=== PATIENT | female | born 1940 | race Caucasian/White ===

== ENCOUNTER → 2024-02-12 13:31 | Outpatient (REF) | payer MEDICARE, SELFPAY | LOC: DHCBS MAIN 13:31 | PROVIDERS: ATTENDING PHYSICIAN Nuclear Medicine Nuclear Cardiology; FAMILY PHYSICIAN Student in an Organized Health Care Education/Training Program | DX: I42.9 Cardiomyopathy, unspecified (principal); R06.02 Shortness of breath; Z95.810 Presence of automatic (implantable) cardiac defibrillator; I48.0 Paroxysmal atrial fibrillation | CPT/HCPCS: 93306 ==

== ENCOUNTER 2024-05-08 03:58 | Inpatient (IN) | payer MEDICARE, SELFPAY ==
[2024-05-08] VITALS (33 sets, daily range): BP systolic 61–132; BP diastolic 37–75; BMI 31.3
--- NOTE | 2024-05-08 00:07 | ED.GENMED ---
History of Present Illness
General
Chief Complaint: Breathing Problem
Source: patient
Exam Limitations: none
Time Seen by Provider: 05/07/24 23:47
History of Present Illness
History of Present Illness:
This is a 83 year old female that comes in by ambulance with c/o SOB. Patient is a nonverbal adult but will shake her head yes or no or give a Thumbs up or down. Told that she [facility]. States that her SOB started
tonight. States that she also has a headache on the right side. Denies any fever, chills, chest pain, abd pain, nausea, vomiting, diarrhea, dizziness, urinary burning
Past History
Past History
ED Past Medical History: Asthma, CHF, COPD, HTN, Hypothyroidism and Other (Aphasia, Bronchitis)
ED Past Surgical History: Cardiac (Pacemaker/ Defib), Cholecystectomy, Gynecological (Tubal, ), Orthopedic (Right hip replacement, Richard knee replacement, ) and Other (cataracts)
Social History
Tobacco: Former smoker
Alcohol: None
Personal:
Living: with family
Review of Systems
Review of Systems
All Other Systems: ROS reviewed and negative except as documented in HPI and ROS
Constitutional: Reports no symptoms; Denies fever or chills
EENT: Reports no symptoms
Respiratory: Reports cough and trouble breathing
Cardiac: Denies chest pain
ABD/GI: Reports no symptoms; Denies abdominal pain, nausea, vomiting or diarrhea
: Reports no symptoms; Denies dysuria, frequency or urgency
Musculoskeletal: Reports no symptoms
Skin: Reports no symptoms
Neurological: Reports headache; Denies dizzy
Psychiatric: Reports no symptoms
Phy Exam
General Physical Exam
General Presentation: no apparent distress
General age: appears stated age
General Skin: warm and dry
General Habitus: elderly
General Mental: alert
General Hydration: appears well hydrated
ENT Exam
ENT Exam: TM's normal, pharynx normal and neck supple
Eye Exam
Eye Exam: EOMI
Cardiovascular Exam
Cardiovascular Exam: normal peripheral pulses and pacemaker
Pulmonary Exam
Pulmonary Exam: no rhonchi, decreased breath sounds and other (Very faint exp wheezing noted, Moist cough noted)
Gastrointestinal Exam
Gastrointestinal Exam: normal bowel sounds, non tender, soft, no pulsatile mass, non distended and other (Hard palpable mid abd hernia)
Musculoskeletal Exam
Musculoskeletal Exam: full ROM and edema (+1 pitting edema lower legs)
Skin Exam
Skin Exam: normal color, warm/dry, no rash and no petechia
Psychiatric Exam
Psychiatric Exam: normal mood/affect
Scores
Heart Failure Risk
Heart Failure Risk Score: Not Applicable
Course
Orders/Labs/Results
Orders:
Orders
05/07/24 23:46
Cardiac Monitoring- Treatment ONCE
IV Insert/Care/Rem.- Treatment PRN
O2 Therapy [RESP] Urgent
Titrate/Wean O2 to maintain O2 sat greater than (%): 93
Special Instructions: TO MAINTAIN CONTINOUS PULSE OX SATS > OR = 93%
Pulse Ox/spot Check [RESP] Urgent
Quantity: 1
Special Instructions: ON ROOM AIR
05/07/24 23:47
EKG [Electrocardiogram (*1)] Urgent
Reason for Study: Shortness of Breath
EKG- Treatment ONCE
Complete Blood Count/No Diff Urgent
Comprehensive Metabolic Panel Urgent
05/08/24 00:06
CR Chest - 2 Views Urgent
Comment:
Reason For Exam: SOB
05/08/24 00:11
Ipratropium/Albuterol Sulfate [Duoneb] 3 ml INH R NOW ONE
05/08/24 00:13
NT-proBNP Urgent
Troponin I Urgent
05/08/24 00:18
0.9% Sodium Chloride 1000 ml [Nss] 1,000 ml IV BOLUS
05/08/24 00:52
Lactate Level [Lactic Acid] Urgent
05/08/24 01:45
Piperacillin/Tazo 3.375 Gram [Zosyn] 3.375 gram in 50 ml IV NOW
Vancomycin 1 Gram/200 ml [Vancocin] 1 gram in 200 ml IV NOW
05/08/24 02:08
COVID-19 Antigen Urgent
Source: Nasal Swab
D-Dimer Urgent
05/08/24 02:14
Procalcitonin Urgent
PCT Algorithmm Indication: Respiratory
05/08/24 02:47
Admit/Transfer Patient As Directed
Co-Sign Provider:
Level of Care: Inpatient admission
Assign to:: IMU- Intermediate Care
Physician / Group: [email or web address]
Diagnosis: Dysnea, hypotension
Reason for Hospitalization: Dysnea, hypotension
Expected length of stay greater than two midnights?: Yes
ELOS- Estimated Length of Stay in days: 3
I certify the patient meets the requirements for IP care: Yes
05/08/24 02:49
Code Status As Directed
Resuscitation Status: Full Code
05/08/24 03:15
Troponin I Urgent
Abnormal Lab Results
05/08/24 05/08/24 05/08/24
00:13 00:52 02:08
RBC 3.84 L 10^6/uL
(4.20-5.40)
MCV 99.5 H fL
(81.0-99.0)
MCH 32.8 H pg
(27.0-31.0)
D-Dimer 0.85 H ug/mlFEU
(0.00-0.50)
BUN 27 H mg/dl
(7-17)
Glucose 149 H mg/dl
(70-99)
Lactic Acid 2.2 H mmol/L
(0.7-2.0)
Troponin I 0.044 H* ng/ml
SARS-CoV-2 Antigen Positive A
(Negative)
05/08/24 00:13
05/08/24 00:13
Anemia, Dehydration. Glucose nonfasting. Lactic acid slightly elevated. Troponin 0.044, Pro-BNP 415, COVID positive
D-dimer elevation of 0.85, Will adjust for age and the fact that patient has COVID.
Vital Signs
Initial and Last Documented VS:
Initial Vital Signs
Temp Pulse Resp Pulse Ox
97.6 F 95 24 93
05/07/24 23:47 05/07/24 23:47 05/07/24 23:47 05/07/24 23:47
Last Documented Vital Signs
Temp Pulse Resp BP Pulse Ox
97.8 F 72 17 100/55 95
05/08/24 02:54 05/08/24 02:54 05/08/24 02:54 05/08/24 02:54 05/08/24 02:54
MDM/Problems Addressed
Differential Diagnosis Includes:
CHF, PNA, Asthma
MDM/Problems Addressed:
This is a 83 year old female that comes in with c/o SOB. Told that this started tonight. Patient did come home form [place] today.
Will get labs chest X-ray
Back into see patient. Explained that to patient and daughter that she would be admitted. Patient his Hypotensive, lactic acid is elevated and there may be a Pneumonia on the chest X-ray. Unable to get CT scan as patient is allergic to IV dye. Will
get D-dimer and admit. Will admit.
Chronic conditions affecting care: Asthma and Other (CHF)
Acute Exacerbation and/or Progression of Chronic Illness: Asthma and Other (CHF)
*Pulse Oximetry
Patient hypoxic: no
*EKG
Interpreted by ED Provider?: Yes
Heart Rate: 91
Rate: normal
Rhythm: av sequential
*Meatcutter Interpretation
Rate: normal
Heart Rate: 91
Rhythm: ventricular paced
*Critical Care Note
Total Time (30-74mins, 75-104mins- exclusive of procedures): Not Applicable
ED Attending Note
-
Portions of this chart may have been created with voice recognition software.� Occasional wrong word or��sound alike� substitutions may have occurred due to the inherent limitations of voice recognition software.
Discharge Plan
Departure
Patient Disposition: Admit
Date of Disposition: 05/08/24
Time of Disposition: 02:04
Admit to: Telemetry
Presentation/result/management discussed w/ accepting MD/DO: Hospitalist
Patient with high blood pressure during this ER visit?: No
Condition: Good
Covid-19: Confirmed COVID-19
Discharge Problem:
Acute hypotension, SOB (shortness of breath), Elevated troponin, Possible Pneumonia, COVID
Prescriptions:
No Action
furosemide 40 MG tablet
20 mg PO DAILY
cetirizine 10 MG tablet
10 mg PO DAILY
potassium chloride [Klor-Con M20] 20 MEQ tablet,ER particles/crystals
20 meq PO DAILY
colesevelam [WelChol] 625 MG tablet
1,250 mg PO AC
levothyroxine 50 MCG tablet
50 mcg PO DAILY AT 0700
acetaminophen [Tylenol Extra Strength] 500 MG tablet
500 mg PO Q6HPRN PRN (Reason: mild pain)
fluticasone propionate 1 SPRAY spray,suspension
1 spray intranasal DAILY
prednisone 10 MG tablet
10 mg PO DAILY Qty: 50 0RF
carvedilol 6.25 mg tablet
6.25 mg PO BID
omeprazole 40 mg capsule,delayed release(DR/EC)
40 mg PO DAILY
cholecalciferol (vitamin D3) [Vitamin D3] 25 mcg (1,000 unit) capsule
75 mcg PO HS
escitalopram oxalate 10 mg tablet
20 mg PO QPM
apixaban 5 mg Tablet
5 mg PO BID
Entresto 24-26 mg tablet
1 tab PO BID
colesevelam 625 mg Tablet
1,875 mg PO BID
Referrals:
Eileen Mittal DO [Family Provider] -
Interventions
Interventions:
*Risk Screen - Suicide Last Done: 05/07/24 23:47
*General Assessment Last Done: 05/07/24 23:47
*Neglect/Abuse Screening Last Done: 05/07/24 23:47
*ED COVID-19 Vaccine History Last Done: 05/07/24 23:47
ED- Cardiac Assessment Last Done: 05/08/24 00:54
ED- Pulmonary Assessment Last Done: 05/08/24 00:54
Discharge Date and Time
Print Language: HUNGARIAN
[2024-05-08] MEDS: NSS 1000 IV ×3 (00:18→18:30)
[2024-05-08] MEDS: DUONEB 3 ML INH (00:19)
[2024-05-08 00:31] LABS: Hematocrit 38.2 % (37.0-47.0); Hemoglobin 12.6 g/dL (12.0-16.0); Mean Corpuscular Hgb 32.8 pg (27.0-31.0); Mean Corpuscular Volume 99.5 fL (81.0-99.0); Mean Platelet Volume 9.7 fL (7.4-10.4); Platelet Count 246 10^3/uL (130-400); Red Blood Cell Count 3.84 10^6/uL (4.20-5.40); Red Cell Dist. Width 13.3 % (11.5-14.5); White Blood Cell Count 6.8 10^3/uL (4.8-10.8)
[2024-05-08 00:47] LABS: ALT (SGPT) 13 U/L (0-35); AST (SGOT) 21 U/L (14-36); Albumin 4.2 g/dl (3.5-5.0); Alkaline Phosphatase 61 U/L (38-126); Blood Urea Nitrogen 27 mg/dl (7-17); Calcium 9.6 mg/dl (8.4-10.2); Carbon Dioxide 25 mmol/L (22-30); Chloride 107 mmol/L (98-107); Estimated Creatinine Clearance 55 ml/min; Glucose 149 mg/dl (70-99); Potassium 4.3 mmol/L (3.5-5.1); Sodium 141 mmol/L (135-145); Total Bilirubin 0.5 mg/dl (0.2-1.3); Total Protein 6.9 g/dl (6.3-8.2); eGFR > 60.00
[2024-05-08 01:06] LABS: NT-proBNP 415 pg/ml; Troponin I 0.044 ng/ml
[2024-05-08 01:21] LABS: Lactic Acid 2.2 mmol/L (0.7-2.0)
[2024-05-08] MEDS: ZOSYN 50 IV (02:09)
[2024-05-08 02:28] LABS: COVID-19 Antigen Positive (Negative)
--- NOTE | 2024-05-08 02:40 | HPS.HSE ---
Family Physician
-
Family Physician: Jane Mittal, DO
Chief Complaint
-
SoB
History of Present Illness
I could not get detailed information from the patient as she is aphasic - just yes or no answer
Information gathered by chart review and speaking with the ER staff.
83F Aphasic s/p CVA , on Eliquis BiB EMS HX COPD, HX Chr HFrEF , Chr Eliquis dilated cardiomyopathy s/p [employer] biventricular ICD implanted, nonobstructive CAD on cath in 2007 seen at ER for evalaution of SoB:
Acute onset of SoB following driving back fron [place]
- denied cough
- denied sputum
- denied chills
At ER
Severely hypotensive - improved BP s/p 1 L NS
ROS
Denies any fever, chills, chest pain, abd pain, nausea, vomiting, diarrhea, dizziness, urinary burning
Medical History
Past Medical History
Past Medical History: Reports Other
Additional Past Medical History:
Chronic systolic CHF
Hypothyroid
COPD
Dilated Cardiomyopathy
HX [employer] BIV ICD implanted 2007 with last gen change 3012
HX WCT likely NSVT vs possible AT with intrinsic conduction above max track rate
Past Surgical History: Reports Other
Additional Past Surgical History:
Cardiac (Pacemaker/ Defib), Cholecystectomy, Gynecological (Tubal, ), Orthopedic (Right hip replacement, Richard knee replacement, ) and Other (cataracts)
Social History
Tobacco: Former Smoker
Alcohol: None
Personal:
Living: With Family
Family History
Family History: Not pertinent
Allergies / Home Medications
Allergies reflects when Allergies were last updated in [employer].
Home Medications with original date entered in [employer]
Allergy/Medication List:
Allergies
Allergy/AdvReac Type Severity Reaction Status Date / Time
aspirin Allergy Anaphylaxis Verified 05/08/24 00:10
ketorolac tromethamine Allergy Unknown Verified 05/08/24 00:10
[From Toradol]
Bgvouam-TVV-YpB Reductase AdvReac Unknown Verified 05/08/24 00:10
Inhibitor
[Rgzdoqr-Sig-Pgh Reductase
Inhibitor]
iv dye Allergy Anaphylaxis Uncoded 05/08/24 00:10
Home Medications
acetaminophen 500 mg tablet (Tylenol Extra Strength) 500 mg PO Q6HPRN PRN mild pain 10/09/14
cetirizine 10 mg tablet 10 mg PO DAILY 10/09/14
colesevelam 625 mg tablet (WelChol) 1,250 mg PO AC 10/09/14
fluticasone propionate 50 mcg/actuation nasal spray,suspension 1 spray intranasal DAILY 10/09/14
furosemide 40 mg tablet 20 mg PO DAILY 10/09/14
levothyroxine 50 mcg tablet 50 mcg PO DAILY AT 0700 10/09/14
potassium chloride 20 mEq tablet,extended release(part/cryst) (Klor-Con M) 20 meq PO DAILY 10/09/14
prednisone 10 mg tablet 10 mg PO DAILY SINUSITIS ##50 10/09/14
apixaban 5 mg tablet 5 mg PO BID 08/21/23
carvedilol 6.25 mg tablet 6.25 mg PO BID 08/21/23
cholecalciferol (vitamin D3) 25 mcg (1,000 unit) capsule (Vitamin D3) 75 mcg PO HS 08/21/23
escitalopram oxalate 10 mg tablet 20 mg PO QPM 08/21/23
omeprazole 40 mg capsule,delayed release 40 mg PO DAILY 08/21/23
sacubitril 24 mg-valsartan 26 mg tablet (Entresto) 1 tab PO BID 08/21/23
colesevelam 625 mg tablet 1,875 mg PO BID 05/08/24
Review of Systems
-
Constitutional: Reports No Symptoms
EENT: Reports No Symptoms
Respiratory: Reports See HPI
Cardiac: Reports No Symptoms
Abdomen/GI: Reports No Symptoms
: Reports No Symptoms
Musculoskeletal: Reports No Symptoms
Skin: Reports No Symptoms
Neurological: Reports No Symptoms
Endocrine: Reports No Symptoms
Hematologic/Lymphatic: Reports No Symptoms
Psych: Reports No Symptoms
Physical Exam
Vital Signs
Vital Signs
Temp Pulse Resp BP Pulse Ox
97.6 F 76 19 88/57 94
05/07/24 23:47 05/08/24 01:15 05/08/24 01:15 05/08/24 01:15 05/08/24 01:15
Physical Exam
General: Well Developed, Well Nourished, No Apparent Distress, Comfortable and Conversant (aphasix )
HEENT: NormoCephalic and Anicteric
Respiratory: No Rales or Rhonchi
Cardiac: S1/S2 and Regular Rhythm
Breast: Deferred by me
GI: Soft, Non Tender and Non Distended
Skin: Warm
Neuro: Awake and Alert
Psych: Calm
Laboratory Results
-
05/08/24 00:13
05/08/24 00:13
Laboratory Results
Lactic Acid 2.2 mmol/L (0.7-2.0) H 05/08/24 00:52
Total Bilirubin 0.5 mg/dl (0.2-1.3) 05/08/24 00:13
AST 21 U/L (14-36) 05/08/24 00:13
ALT 13 U/L (0-35) 05/08/24 00:13
Alkaline Phosphatase 61 U/L (38-126) 05/08/24 00:13
Troponin I 0.044 ng/ml H* 05/08/24 00:13
Data Reviewed
-
Diagnostic Radiology: Report Reviewed by me
Lab Data: Labs Reviewed by me
Old Records: Reviewed
Impression/Plan
-
Reviewed VS: afebrile HR 80s BP low as 60/37 RR 19 POx low 90s
Data
nl WCC
Unremarkable Cr and eGFR
LA 2.2
pro BNP 415
POS Covid
Pending PCT
CXR : await final report, I could no see obvious PNA
EKG report
Atrial-sensed ventricular-paced rhythm
Biventricular pacemaker detected
ABNORMAL ECG
WHEN COMPARED WITH ECG OF 21-AUG-2023 21:20,
ELECTRONIC VENTRICULAR PACEMAKER HAS REPLACED WIDE QRS TACHYCARDIA
02/12/24 TTE
LVEF 5o-55
stage I diastolic dysfunction
ICD/pacemaker wire present in the right atrial cavity.
Trace mitral regurgitation.
Moderate . Peak/mean gradients across the aortic valve are 23/12 mmHg respectively. Using an LVOT diameter of 2.0 cm the aortic valve
Last hospitalist admission:
ASSESSMENT & PLAN
Acute viral Covid infection
- f/u final report on CXR
- Empiric Steroids
- ID consult for antiviral indication
Acute dyspnea due to acute virla covid ? PNA
- unlikely acute HF with unremarkable proBNP, PE but she is on Eliquis, COPD flare
- cont Eliquis
- check PCT
- Pul consult
Sever hypotension
LA2,2
DDX: Dehydration, sepsis
- IVF
- f/u BP repose
- Held Carvedilol, Entresto and Frusemide
- daily Wt
Currently hypotensive
Essential HTN
- Held Carvedilol, Entresto and Frusemide
HX Chr systolic HF - recent LVEF 50 -55
HX Dilated CM, CAD
- await DCA card eval
HX [employer] BIV ICD implanted 2007 with last gen change 3013
Hypothyroidism
- cont LT4
Aphasia
DVT Px: Eliquis
Code: Full
IMU
[2024-05-08] MEDS: VANCOCIN 200 IV (02:52)
[2024-05-08 02:55] LABS: Procalcitonin < 0.05 ng/ml (0.0-0.25)
[2024-05-08 03:26] LABS: D-Dimer 0.85 ug/mlFEU (0.00-0.50)
[2024-05-08 05:05] LABS: Troponin I 0.112 ng/ml
[2024-05-08] MEDS: MAXIPIME 1000 MG IV (05:21)
[2024-05-08] MEDS: STERILE WATER FOR INJECTION 10 ML IV (05:21)
[2024-05-08] MEDS: SYNTHROID 50 MCG PO (05:21)
--- NOTE | 2024-05-08 05:52 | PTCARENOTE ---
Received pt from ED RN. Pt is nonverbal, answers yes or no questions, aphasic. Vpaced on the monitor. On RA O2 sat 96%, lungs coarse. NS infusing @ 80 ml/hr. CHG bath provided. Bed alarm in place. Pt is laying comfortable in bed with call campa in
reach.
[2024-05-08 06:09] LABS: Lactic Acid 1.4 mmol/L (0.7-2.0)
[2024-05-08] MEDS: PROTONIX 40 MG PO (08:32)
[2024-05-08] MEDS: ELIQUIS 5 MG PO (08:32)
[2024-05-08] MEDS: VIBRAMYCIN 100 MG PO (08:32)
--- NOTE | 2024-05-08 09:33 | PTCARENOTE ---
Assumed care of pt from night RN, pt AAOx3, mostly nonverbal (which is baseline - hx CVA), communicates with thumbs up and down. Remains on RA, SPO2 97%, audible insp/exp wheezing noted. Daughter at bedside, assisting pt with feeding. IVF infusing
as ordered. Will continue to monitor.
--- NOTE | 2024-05-08 09:37 | CON.ID ---
Addendum entered and electronically signed by Idalia Avalos MD 05/08/24 10:18:
probiotic at daughter request
Addendum entered and electronically signed by Idalia Avalos MD 05/08/24 10:13:
Message from Dr Mittal - patient was on chronic steroids when she established care and indication also not clear at that time.
Original Note:
Consultation
-
Date/Time Consultation Requested: 05/08/24 4:46
Date/Time Consultation Performed: 05/08/24 9:38
Requesting Provider: Dr So
Performing Provider: Dr Avalos
Reason for Consultation: acute viral covid
Chief Complaint / Past History
Chief Complaint
shortness of breath
History of Present Illness
Ms Pacheco is an 83 year old female with history of aphasia post CVA, COPD, CHF. History obtained from chart review and discussio nwith adult daughter, she cannot speak but is expressive and will shake head yes or no and give thumbs up or down. By
report with acute dyspnea driving from [place] but non cough, sputum production or chills. Also right sided headache and poor appetite. No sinus tenderness, sore throat. Cough is unchanged. No diarrhea. On arrival patient denied: fever,
chills, chest pain, abd pain, nausea, vomiting, diarrhea, dizziness, urinary burning. She is previously vaccinated for covid.
Since arrival here she has been afebrile, BP with intermittent mild hypotension, saturating well on room air. wbc 6.8, hgb 12, plt 246, d dimer 0.85, cr 0.8, lactic acid 2.2 then 1.4, troponins at 0.112, procalcitonin <0.05, covid ag positive, CXR:
appearance is suggestive of linear atelectasis, although pneumonia with linear morphology, MRSA swab negative. She is currently on cefepime and doxycycline. No antivirals at this time.
Past History
Additional Past Medical History:
Chronic systolic CHF
Hypothyroid
COPD
Dilated Cardiomyopathy
Additional Past Surgical History:
Cardiac (Pacemaker/ Defib), Cholecystectomy, Gynecological (Tubal, ), Orthopedic (Right hip replacement, Richard knee replacement, ) and Other (cataracts)
Allergy History:
aspirin Allergy (Verified 05/08/24 00:10)
Anaphylaxis
ketorolac tromethamine [From Toradol] Allergy (Verified 05/08/24 00:10)
Unknown
[employer]-PEM-UfF Reductase Inhibitor [Gdbahaf-Vjl-Whe Reductase Inhibitor] Adverse Reaction (Verified 05/08/24 00:10)
Unknown
iv dye Allergy (Uncoded 05/08/24 00:10)
Anaphylaxis
Medications Reviewed: Yes
Social History
Tobacco: Former Smoker
Alcohol: None
Personal:
Family History
Family History: Not Pertinent
Review of Systems
Review of Systems
General: Negative Fever or Chills
All systems: All other systems were reviewed and were negative
Vital Signs
Temp Pulse Resp BP Pulse Ox
97.8 F 74 16 94/52 97
05/08/24 07:15 05/08/24 06:04 05/08/24 06:04 05/08/24 06:04 05/08/24 07:45
Physical Exam
Physical Exam
Constitutional: No Acute Distress, Chronically Ill and Obese
Cardiovascular: Regular Rate and S1/S2; Negative Murmur or Rub
Pulmonary: Clear and Symmetric; Negative Wheezes, Rales or Rhonchi
Gastrointestinal: Soft, Non Tender, Non Distended and Normal Bowel Sounds
Skin: Warm and Dry; Negative Rash or Jaundice
Lab / Diagnostic Study Results
05/08/24 00:13
05/08/24 00:13
Lactic Acid Cancelled 05/08/24 16:46
Procalcitonin < 0.05 ng/ml (0.0-0.25) 05/08/24 02:14
Assessment / Plan
Mild Covid 19 Infection
COPD
CHF
- patient vaccinated but does have risk factors for decompensation: age, COPD, CHF, mild hypotension
- elevated d-dimer may be due to covid itself
- no convincing evidence of pneumonia on CXR and procalcitonin is negative - stopped antibiotics
- can plan a 5 day course of paxlovid given risk factors
- dose adjust apixaban to 2.5 mg po bid while on paxlovid, after completion can resume the 5 mg BID dose
- prednisone on the MAR at 10 mg po qday - Im not clear on the outpatient indication for this medication - spoke with pharmacy, last filled 02/23/24 quantity 90 for 90 day supply, tiger texted ordering provider Dr Mittal to clarify indication -
perhaps copd? daughter indicates nasal polyps?
- if hypotension not resolving, primary team might consider adrenal insufficiency
- follow clinically
--- NOTE | 2024-05-08 09:53 | CON.PUL ---
Consultation
Consultation Request
Date/Time Consultation Requested: 05/08/2024445
Date/Time Consultation Performed: 05/08/2024951
Requesting Provider: Dr. So
Performing Provider: Dr. Gastelum
Reason for Consultation: COVID-19/Hypoxia
Medical History
-
Chief Complaint: Shortness of breath
History of Present Illness:
83-year-old female with a past medical history of DVT on Eliquis, asthma, hypertension, aphasia, ambulatory dysfunction and CHF who presents with shortness of breath and EMS placed patient onto oxygen and she required up to 10 L/min with sats of
95%. Here in the ER in triage her saturations was 93% on room air. Patient does not wear home oxygen. Pulse rate 95, respiratory rate 24, temperature 97.6 �F and BP initially 61/37. Initial labs showed normal WBC at 6.8, elevated D-dimer of
0.85, lactate 2.2, elevated troponin of 0.044, procalcitonin negative and COVID antigen is positive. CXR showed linear parenchymal opacities in the lower lobes likely due to atelectasis versus pneumonia. She was given DuoNebs, vancomycin/Zosyn +
IV fluids with NS 0.9% x 1 liter. She was admitted to the hospitalist service, started on Paxlovid and now pulmonary consulted for additional management/recommendations.
When I saw the patient she was sitting in bed in no acute distress with daughter at bedside. Patient currently on IVF at 80mL/hr of NS 0.9%. Patient is answering questions appropriately by gesticulating and nodding head yes or no. Considering
patient is aphasic, HPI was obtained solely by daughter. According to the daughter, this episode is nearly not as bad as other episodes she has had. She was told that her sudden shortness of breath episodes is due to her primary progressive
aphasia. The patient has difficulty writing and is unable to speak, but she still has her cognitive abilities and takes care of herself in other ways (pays bills, makes other decisions for herself). The patient has had these paroxysmal shortness
of breath episodes off and on and it has been continuing to worsen. Patient also has been having difficulty eating as well. Unclear if the patient would ever want a PEG tube if it came to that. I asked the daughter that if the patient ended up
getting worse with her breathing and needed to be on a ventilator which she be okay with that, and she said no. Currently the patient is on room air saturating 97%, heart rate 75, and BP 97/52.
PMHx: History of DVT on Eliquis, history of asthma, hypertension, CHF, arthritis, frontotemporal dementia/primary progressive aphasia, ambulatory dysfunction, situational anxiety, bilateral shoulder arthropathy
PSHx: Knee surgery bilaterally, cholecystectomy, right hip replacement, pacemaker implantation, cataract surgery
Past Medical History
Past Medical History: Other (Above as per HPI)
Past Surgical History: Other (Above as per HPI)
Social History
Tobacco: Non-smoker
Alcohol: Occasional
Drug: None
Living: With Family
Family History
Family History: Cancer (Father: Prostate cancer; sister: Breast cancer + brain cancer) and Hypertension (Mother)
Allergies / Home Medications
Allergies
Allergy/AdvReac Type Severity Reaction Status Date / Time
aspirin Allergy Anaphylaxis Verified 05/08/24 00:10
ketorolac tromethamine Allergy Unknown Verified 05/08/24 00:10
[From Toradol]
Msnsrpm-XAE-KkK Reductase AdvReac Unknown Verified 05/08/24 00:10
Inhibitor
[Ayokxys-Dsm-Dnp Reductase
Inhibitor]
iv dye Allergy Anaphylaxis Uncoded 05/08/24 00:10
Home Medications
�Medication �Instructions �Recorded �Confirmed �Last Taken �Type
acetaminophen 500 mg tablet 500 mg PO Q6HPRN PRN mild pain 10/09/14 05/08/24 Unknown History
(Tylenol Extra Strength)
cetirizine 10 mg tablet 10 mg PO DAILY 10/09/14 05/08/24 Unknown History
colesevelam 625 mg tablet (WelChol) 1,250 mg PO AC 10/09/14 05/08/24 Unknown History
fluticasone propionate 50 1 spray intranasal DAILY 10/09/14 05/08/24 Unknown History
mcg/actuation nasal
spray,suspension
furosemide 40 mg tablet 20 mg PO DAILY 10/09/14 05/08/24 Unknown History
levothyroxine 50 mcg tablet 50 mcg PO DAILY AT 0700 10/09/14 05/08/24 Unknown History
potassium chloride 20 mEq 20 meq PO DAILY 10/09/14 05/08/24 Unknown History
tablet,extended
release(part/cryst) (Klor-Con M)
prednisone 10 mg tablet 10 mg PO DAILY SINUSITIS ##50 10/09/14 05/08/24 Unknown Rx
apixaban 5 mg tablet 5 mg PO BID 08/21/23 05/08/24 Unknown History
carvedilol 6.25 mg tablet 6.25 mg PO BID 08/21/23 05/08/24 Unknown History
cholecalciferol (vitamin D3) 25 75 mcg PO HS 08/21/23 05/08/24 Unknown History
mcg (1,000 unit) capsule (Vitamin
D3)
escitalopram oxalate 10 mg tablet 20 mg PO QPM 08/21/23 05/08/24 Unknown History
omeprazole 40 mg capsule,delayed 40 mg PO DAILY 08/21/23 05/08/24 Unknown History
release
sacubitril 24 mg-valsartan 26 mg 1 tab PO BID 08/21/23 05/08/24 Unknown History
tablet (Entresto)
colesevelam 625 mg tablet 1,875 mg PO BID 05/08/24 05/08/24 Unknown History
Review of Systems
-
Unable to Obtain full review of systems at this time due to: Patient Non Verbal
Vitals / Labs / Diagnostic Testing
Vital Signs
Temp Pulse Resp BP Pulse Ox
98.8 F 79 23 123/75 93
05/08/24 11:10 05/08/24 11:25 05/08/24 11:25 05/08/24 10:00 05/08/24 11:25
Lab Data
05/08/24 00:13
05/08/24 00:13
Diagnostic Testing:
Physical Exam
-
HEENT: Normocephalic and Anicteric
Cardiovascular: S1/S2 and Peripheral Edema (Negative)
Respiratory: Wheeze (Negative), Rales (Bibasilar-middle lung gannon bilaterally), Rhonchi (Negative) and Non-Labored Respirations
GI: Soft, Non Distended, Non Tender and Normal Bowel Sounds
Neurology: Awake and Alert
Skin: Warm and Dry
General: Respiratory Distress (Negative), Comfortable, Chills (Negative) and Sweats (Negative)
Assessment
-
Assessment: 83-year-old female with a past medical history of DVT on Eliquis, asthma, hypertension, aphasia, ambulatory dysfunction and CHF who presents with shortness of breath and EMS placed patient onto oxygen and she required up to 10 L/min
with sats of 95%. Here in the ER in triage her saturations was 93% on room air. Patient does not wear home oxygen. Pulse rate 95, respiratory rate 24, temperature 97.6 �F and BP initially 61/37. Initial labs showed normal WBC at 6.8, elevated
D-dimer of 0.85, lactate 2.2, elevated troponin of 0.044, procalcitonin negative and COVID antigen is positive. CXR showed linear parenchymal opacities in the lower lobes likely due to atelectasis versus pneumonia. She was given DuoNebs,
vancomycin/Zosyn + IV fluids with NS 0.9% x 1 liter. She was admitted to the hospitalist service, started on Paxlovid and now pulmonary consulted for additional management/recommendations.
Chronic conditions [employer]: History of DVT on Eliquis, history of asthma, hypertension, CHF, arthritis, aphasia, ambulatory dysfunction, situational anxiety, bilateral shoulder arthropathy
Impression:
#Acute COVID-19 pneumonia
#Acute respiratory failure with hypoxia � improved and patient no longer needing O2 -her hypoxia episode could also very well be related to her history of primary progressive aphasia
#Lactic acidosis � was likely due to hypotension with sepsis the lactate has now normalized
#Elevated troponin -likely due to type II MN with demand ischemia - peaked at 0.112 on 05/08/2024
#History of COPD/asthma
#Chronic HFpEF
#Frontotemporal dementia/primary progressive aphasia
Plan:
- Continue Paxlovid
- Continue spiriva with prn nebulized bronchodilators
- O2 requirements improved - no need for systemic steroids or remdesivir at this time (also no obvious lung opacities seen on CXR)
- Maintain SpO2 >88-94% with supplemental O2 as needed
- Check home O2 assessment prior to discharge
- Re-check CXR tomorrow to assess if linear opacities still present
- Incentive spirometer encouraged
- Obtain any prior medical records of spirometry/PFTs/pulmonary consult documentation, CT chest imaging studies
- Given patient is not in the ICU, it is reasonable to give multivitamin, thiamine, Zinc + vitamin C
- Check/trend CRP
- No need to continue trending cardiac troponin as it has already peaked earlier today; cardiology consulted and recs appreciated
- Replete electrolytes with K>4, Mg>2
- Maintain euglycemia with goal BG >100 and <180
- DVT ppx
Pulmonary service will continue to follow along. Considering her diagnosis of primary progressive aphasia and the fact that her tachypneic episodes have been increasing lately and she has been having difficulty eating, would strongly recommend
goals of care discussion at least to address code status. Patient currently full code but the daughter said that the patient would not want to be on a ventilator. This will need to be addressed and changed accordingly. I recommend the patient
obtain a living will and also see palliative care as an outpatient with Dr. Sands. The number to call to make an appointment is: [phone]. I otherwise answered all of the patient and the patient's daughter's questions.
Total time spent today was 55 minutes for this encounter. Time includes reviewing laboratory test/imaging results, reviewing pertinent medical records, obtaining and reviewing medical history, performing an appropriate exam, ordering medications,
tests and procedures. Time also includes documentation of this encounter, coordinating patient care and communicating with other healthcare professionals. Total time does not include separately billed tests performed on this date of service.
Data:
CXR 05-08-2024:
Predominantly linear parenchymal opacity projecting over the posterior lower lungs, probably within the right lower lobe. Morphologic appearance is suggestive of linear atelectasis, although pneumonia with linear morphology is also possible.
TTE 02-12-2024:
Endocardial imaging is less than ideal. Left ventricle is mildly dilated.
Normal left ventricular systolic function. No regional wall motion
abnormalities are seen. LV ejection fraction is visually estimated at between
50 and 55% stage I diastolic dysfunction suggestive of abnormal relaxation.
ICD wire seen in right ventricle.
ICD/pacemaker wire present in the right atrial cavity.
Trace mitral regurgitation.
Moderate aortic stenosis. Peak/mean gradients across the aortic valve are
23/12 mmHg respectively. Using an LVOT diameter of 2.0 cm the aortic valve by
the Continuity equation is calculated at 1.0 cm2. Dimension;ess index of 0.3.
Mild tricuspid regurgitation.
Compared to report of an echocardiogram dated November 20, 2022 from [facility] in [facility], LVEF was noted to be
mildly depressed at that time with an ejection fraction approximated at 43% and
no mention of focal wall motion abnormality. Mitral regurgitation was
previously noted to be moderate. No aortic stenosis was described.
--- NOTE | 2024-05-08 10:23 | W.PN.UPDATE ---
Update Note
Progress Note Update
Admitted this morning for shortness of breath and discovered to have COVID.
[facility]
Patient presentation symptoms shortness of breath with COVID. She has no fever or white count and a chest x-ray shows raises a concern about right lower lobe opacity may be more linear atelectasis. Not acting like typical pneumonia. Procalcitonin
normal. She is got bilateral mild wheeze ongoing and there is reactive airways which could explain shortness of breath . Continue with inhaler therapy. If persistent wheezing or symptoms will start on steroids.
She has elevated D-dimer and recent drive up north from [place] but she is on therapeutic AC with Eliquis so doubt PE.
Abnormal troponin noted to recheck in indeterminate range suspect nonischemic myocardial injury? COVID. 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 Echocardiogram 3 months ago showed EF of 50 to 55% and moderate aortic
stenosis. I suspect this may be COVID-related but will obtain a consultation from cardiology.
--- NOTE | 2024-05-08 11:13 | CON.CAR ---
Addendum entered and electronically signed by Anne Musa MD 05/08/24 12:16:
I saw and examined the patient.
The Ball[employer] Pen Assembly Machine Operator's note was reviewed and I agree with the note.
Comment: General: Well developed, well nourished in NAD.
Heart: Distant heart sounds
Lungs: Coarse breath sounds with wheezing bilateral
Extremities: No clubbing, cyanosis or edema bilaterally.
Neuro: Expressive aphasia but able to communicate with thumbs up and thumbs down
She presents in the setting of COVID, pneumonia and likely dehydration. She has ICD in place, PAF, heart failure with improved ejection fraction, moderate aortic valve stenosis and history of CVA with aphasia.
Low-level troponin noted likely nonischemic myocardial injury. No symptoms of angina. Trend troponins but conservatively manage.
Agree with gentle hydration
Agree with treatment of COVID/pneumonia and wheezing
Cardiac medications on hold until blood pressure stable (low/low normal but relatively asymptomatic). Eventually resume.
Telemetry stable. Last ICD check was stable. Currently sinus rhythm. Eliquis dose reduced in the setting of Paxlovid
Original Note:
Consultation
Consultation Request
Date/Time Consultation Performed: 05/08/24
Requesting Provider: Dr. Clarke
Performing Provider: Elsi Rodriguez PA-C for Dr. Anne Musa
Reason for Consultation: elevated troponin
Medical History
-
Chief Complaint: SOB
History of Present Illness:
Patient is an 83 yo F who is aphasic as result of presumed prior CVA, cardiomyopathy with recovered EF s/p [employer] ICD with [employer] [place] leads, chronic HFpEF, paroxysmal atrial fibrillation on chronic eliquis, mod , HTN, HLD, hypothyroidism,
COPD, history of DVT who drove home from [place] yesterday. She developed SOB last evening and [facility] Tested positive for covid, noted to be hypotensive. Cardiology consulted due to elevated troponin of 0.1 and known cardiac
history. Asensed vpaced by EKG on arrival.
PMH:
aphasic as result of prior CVA
cardiomyopathy with recovered EF
s/p [employer] [place] ICD with [employer] leads
chronic HFpEF
paroxysmal atrial fibrillation on chronic eliquis
mod
HTN
HLD
hypothyroidism
COPD
history of DVT
Past Medical History
Past Medical History: Other (in HPI)
Social History
Tobacco: Non-Smoker
Alcohol: Occasional
Personal:
Living: Alone
Family History
Family History: Cancer and Hypertension
Allergies / Home Medications
Allergy/AdvReac Type Severity Reaction Status Date / Time
aspirin Allergy Anaphylaxis Verified 05/08/24 00:10
ketorolac tromethamine Allergy Unknown Verified 05/08/24 00:10
[From Toradol]
Atosmem-SQX-DiA Reductase AdvReac Unknown Verified 05/08/24 00:10
Inhibitor
[Nnvmavb-Ets-Nmm Reductase
Inhibitor]
iv dye Allergy Anaphylaxis Uncoded 05/08/24 00:10
�Medication �Instructions �Recorded �Confirmed �Type
acetaminophen 500 mg tablet 500 mg PO Q6HPRN PRN mild pain 10/09/14 05/08/24 History
(Tylenol Extra Strength)
cetirizine 10 mg tablet 10 mg PO DAILY 10/09/14 05/08/24 History
colesevelam 625 mg tablet (WelChol) 1,250 mg PO AC 10/09/14 05/08/24 History
fluticasone propionate 50 1 spray intranasal DAILY 10/09/14 05/08/24 History
mcg/actuation nasal
spray,suspension
furosemide 40 mg tablet 20 mg PO DAILY 10/09/14 05/08/24 History
levothyroxine 50 mcg tablet 50 mcg PO DAILY AT 0700 10/09/14 05/08/24 History
potassium chloride 20 mEq 20 meq PO DAILY 10/09/14 05/08/24 History
tablet,extended
release(part/cryst) (Klor-Con M)
prednisone 10 mg tablet 10 mg PO DAILY SINUSITIS ##50 10/09/14 05/08/24 Rx
apixaban 5 mg tablet 5 mg PO BID 08/21/23 05/08/24 History
carvedilol 6.25 mg tablet 6.25 mg PO BID 08/21/23 05/08/24 History
cholecalciferol (vitamin D3) 25 75 mcg PO HS 08/21/23 05/08/24 History
mcg (1,000 unit) capsule (Vitamin
D3)
escitalopram oxalate 10 mg tablet 20 mg PO QPM 08/21/23 05/08/24 History
omeprazole 40 mg capsule,delayed 40 mg PO DAILY 08/21/23 05/08/24 History
release
sacubitril 24 mg-valsartan 26 mg 1 tab PO BID 08/21/23 05/08/24 History
tablet (Entresto)
colesevelam 625 mg tablet 1,875 mg PO BID 05/08/24 05/08/24 History
Review of Systems
-
Unable to obtain full review of systems at this time due to: Patient Non Verbal
History Source: Other (medical record)
Physical Exam
Vital Signs
Temp Pulse Resp BP Pulse Ox
97.8 F 74 16 94/52 97
05/08/24 07:15 05/08/24 06:04 05/08/24 06:04 05/08/24 06:04 05/08/24 07:45
Lab Results
05/08/24 00:13
05/08/24 00:13
Troponin I 0.112 ng/ml H* D 05/08/24 04:22
Uds-W-Ckympciytul Pept 415 pg/ml 05/08/24 00:13
Impression / Plan
-
Primary Harpsichord Maker: Dr. Hobson
Assessment:
Presentation with SOB
Covid infection
Hypotension
Elevated troponin, suspected nonischemic myocardial injury
aphasic as result of prior CVA
swallowing dysfunction as result of prior CVA
cardiomyopathy with recovered EF
s/p [employer] ICD with [employer] leads
chronic HFpEF
Paroxysmal atrial fibrillation on chronic eliquis
mod
HTN
HLD
hypothyroidism
COPD
history of DVT
ECHO 02/12/2024: EF 50 to 55%, stage I diastolic dysfunction, ICD wire in RV and RA, trace MR, moderate with peak/mean gradients 23/12 mmHg, TAWNYA 1.0 cm�, mild TR
Plan:
-Patient presented with shortness of breath found to have acute COVID infection. CXR with linear parenchymal opacity over posterior lower lungs likely in RLL, no pleural effusion or evidence of pulmonary edema
-Also noted to be hypotensive, currently receiving IV fluid. Outpatient Lasix, Coreg, Entresto presently on hold. Follow blood pressure trends and resume as able
-Appears to be in a sensed v paced rhythm by review of EKG on arrival as well as telemetry overnight. She does have some PVCs. K stable. check mag
-Trend troponin to peak, up to 0.11. Suspect this is nonischemic myocardial injury related to moderate and hypotension in the setting of acute COVID infection. No noted complaints of chest discomfort and EKG without acute ischemic changes noted.
-Recent echo from 01/2024 with recovery in EF to 50-55%. Previously was noted to be 43% by an echo completed in [place]. Would not repeat at this time
-Currently on Paxlovid. Her outpatient Eliquis dose has been reduced to 2.5 mg twice daily for now
-Continue supportive care
Data Reviewed
-
EKG: Tracing Personally Visualized and interpreted
Radiology: Report Reviewed by me
Medical Tests (Nuc Med, Echo etc): Report Reviewed by me
Labs: Labs Reviewed by me
Old Records: Reviewed
[2024-05-08] MEDS: ProAIR HFA INHALER 2 PUFF INH ×3 (11:22→20:36)
[2024-05-08] MEDS: SPIRIVA RESPIMAT 2.5 MCG 2 PUFF INH (11:22)
[2024-05-08] MEDS: PAXLOVID 2X150 MG-100 MG DOSE PACK 1 DOSE PO ×2 (12:29→20:14)
[2024-05-08] MEDS: VISBIOME 2 CAP PO (12:29)
[2024-05-08 12:52] LABS: Troponin I 0.077 ng/ml
--- NOTE | 2024-05-08 13:01 | PTCARENOTE ---
Pt noted to have 16 beat run of v-tach, reports feeling nothing abnormal. Dr. Musa notified, no new orders at this time.
[2024-05-08 14:25] LABS: Urine Albumin Trace (Neg - Trace); Urine Bilirubin Negative (Negative); Urine Character Clear (Clear); Urine Color Yellow; Urine Glucose Negative (Negative); Urine Ketone Negative (Negative); Urine Leukocyte 2+ (Negative); Urine Nitrite Negative (Negative); Urine Occult Blood Negative (Negative); Urine Specific Gravity 1.015 (<1.030); Urine Urobilinogen Negative (Neg - 1+)
[2024-05-08 14:58] LABS: Urine Mucus Moderate
[2024-05-08 14:59] LABS: Urine Amorphous Seen; Urine Squamous Cell 0-2 /LPF (Few)
[2024-05-08 15:00] LABS: Urine Granular Cast 0-2 /LPF (0)
[2024-05-08 15:01] LABS: Urine Red Blood Cell 0-2 /HPF (0-2)
[2024-05-08 15:02] LABS: Urine Hyaline Cast 0-2 /LPF (0-2)
[2024-05-08 15:03] LABS: Urine Bacteria Few (Negative)
[2024-05-08] MEDS: LEXAPRO 20 MG PO (18:31)
[2024-05-08] MEDS: ELIQUIS 2.5 MG PO (20:14)
--- NOTE | 2024-05-08 20:34 | PTCARENOTE ---
Pt nonverbal, but able to nod head appropriately and give thumbs up/down for yes/no questions. Pt takes pills in applesauce, does cough with oral intake. 94% on RA, VSS. Call campa within reach.
[2024-05-09] VITALS (14 sets, daily range): BP systolic 87–136; BP diastolic 41–93; PULSE 72–82; O2SAT 95–96; BMI 31.7
--- NOTE | 2024-05-09 03:17 | PTCARENOTE ---
Pt experiencing episodes of sustained VT, denies symptoms. STEAMING CABINET TENDER notified. Pt does have AICD
[2024-05-09] MEDS: SYNTHROID 50 MCG PO (05:12)
[2024-05-09] MEDS: NSS 1000 IV (05:12)
[2024-05-09 05:31] LABS: Hematocrit 35.4 % (37.0-47.0); Mean Corp Hgb Conc. 33.9 g/dL (33.0-37.0); Mean Corpuscular Hgb 33.7 pg (27.0-31.0); Mean Corpuscular Volume 99.4 fL (81.0-99.0); Mean Platelet Volume 9.9 fL (7.4-10.4); Platelet Count 212 10^3/uL (130-400); Red Blood Cell Count 3.56 10^6/uL (4.20-5.40); Red Cell Dist. Width 13.5 % (11.5-14.5); White Blood Cell Count 6.8 10^3/uL (4.8-10.8)
[2024-05-09 05:57] LABS: ALT (SGPT) < 10 U/L (0-35); AST (SGOT) 19 U/L (14-36); Albumin 3.3 g/dl (3.5-5.0); Alkaline Phosphatase 49 U/L (38-126); Blood Urea Nitrogen 14 mg/dl (7-17); Carbon Dioxide 22 mmol/L (22-30); Chloride 113 mmol/L (98-107); Estimated Creatinine Clearance 66 ml/min; Glucose 82 mg/dl (70-99); Sodium 140 mmol/L (135-145); Total Bilirubin 0.9 mg/dl (0.2-1.3); Total Protein 5.8 g/dl (6.3-8.2); eGFR > 60.00
[2024-05-09] MEDS: ProAIR HFA INHALER 2 PUFF INH ×3 (07:18→19:49)
[2024-05-09] MEDS: SPIRIVA RESPIMAT 2.5 MCG 2 PUFF INH (07:19)
--- NOTE | 2024-05-09 09:19 | PTCARENOTE ---
Tele alarming VT when pt up on commode, sustaining, but pt is asymptomatic. Per report, this is not new for the patient and MDs are aware. Discussed with Dr. Coulter, reviewed tele strips, will check mag and device to clarify. Per Dr. Clarke, pt
stable for downgrade out of IMU.
--- NOTE | 2024-05-09 09:41 | W.PN.HOSP.TC ---
Today's Communication/Plan
-
Transfer to telemetry
Assessment / Plan
Assessment / Plan
COVID-19 infection- patient currently without any obvious evidence of pneumonia nor hypoxia. Started on Paxlovid because of the high risk. Eliquis dose decreased down due to interaction.Shortness of breath improved. No fevers. No increased
inflammatory markers-CRP normal.
Nonsustained V. tach-telemetry shows 3 episodes of nonsustained V. tach. Patient ICD in place. Her EF is recovered. Check magnesium. Resume her Coreg which was on hold for hypotension. Cardiology following.
Abnormal troponins-suspect nonischemic myocardial injury. Continue to follow.
chronic CHF with recovered EF-resume Entresto and Lasix as the blood pressure tolerates.
Chronic steroid use-for nasal polyposis-reintroduce her home dose but if the hemodynamics are an issue will give stress dose of steroids.
Stroke with aphasia. According to the daughter patient sometimes have issue with shortness of breath especially in the morning and sometimes in the night. Do not know if she has any postnasal drip as the patient cannot communicate. Rule out
GERD. keep the head with the bed elevated at 30 degrees. Obtain speech eval.
Transfer to tele
Anticipated Discharge: 24 - 48 hours
Subjective/Interval History
-
Date of Service: May 09, 2024
patient has total aphasia eventually nods yes or no or gives a thumbs up or down for questions.
I got a thumbs up for no shortness of breath, no nausea, no chest pain. Thumbs down for appetite.
Objective Data
-
Labs:
Laboratory Results
05/09/24
05:11
WBC 6.8
Hgb 12.0
Hct 35.4 L
Plt Count 212
Sodium 140
Potassium 4.0
Chloride 113 H
Carbon Dioxide 22
BUN 14
Creatinine 0.7
Glucose 82
Calcium 9.0
Total Bilirubin 0.9
AST 19
ALT < 10
Alkaline Phosphatase 49
Vital Signs:
Vital Signs
Temp Pulse Resp BP Pulse Ox
98.5 F 88 15 97/41 96
05/09/24 07:59 05/09/24 07:26 05/09/24 07:26 05/09/24 06:08 05/09/24 07:26
I&O
05/08/24 05/09/24 05/10/24
06:59 06:59 06:59
Intake Total 210 / 210
Output Total 625 / 625
Balance 210 / 210 -625 / -625
Review of Systems
-
Unable to obtain full review of systems at this time due to: Patient Non-verbal
Physical Exam
-
General: No Apparent Distress
HEENT: Moist Mucous Membranes
Respiratory: Crackles ( few basilar crackles in the left base but otherwise clear chest) and Non Labored Respirations; Negative Wheezes ( Today) or Accessory Resp Muscle Use
Cardiac: Regular Rhythm and S1/S2
Neuro: Awake and Alert
Psych: Calm; Negative Agitated
Data Reviewed
-
Labs: Labs Reviewed by me
--- NOTE | 2024-05-09 09:59 | W.PN.CARDCBS ---
Addendum entered and electronically signed by Ezequiel Coulter MD 05/09/24 10:49:
I saw and examined the patient.
The Diffusion Furnace Operator's note was reviewed and I agree with the note.
Comment:
GEN: No distress, awake, Ox3
HEENT: supple, anicteric, mmm
LUNGS: scatt rhonchi
CV: Reg, S1/S2, 1/6 syst LSB, no gallop
ABD: soft, BS+, NT/ND
EXT: No edema
NEURO: Gross non-focal
SKIN: No rash
PLan:
Troponins have improved. Likely nonischemic myocardial injury.
She is having episodes of wide-complex tachycardia on telemetry with intermittent pacemaker tracking. Will have device check performed today to assess the etiology of this.
Continue Coreg/Eliquis
Would hold Entresto if blood pressure is below 120.
Cont Paxlovid
Original Note:
Today's Communication / Plan
-
continue supportive care
interrogate device
resume coreg as able
currently on eliquis 2.5mg BID
will arrange OP cardiac follow up
Impression / Plan
-
Primary Timber Appraiser: Dr. Hobson
Assessment:
Presentation with SOB
Covid infection
Hypotension
Elevated troponin, suspected nonischemic myocardial injury
aphasic as result of prior CVA
swallowing dysfunction as result of prior CVA
cardiomyopathy with recovered EF
s/p [employer] ICD with [employer] [place] leads
chronic HFpEF
Paroxysmal atrial fibrillation on chronic eliquis
mod
HTN
HLD
hypothyroidism
COPD
history of DVT
ECHO 02/12/2024: EF 50 to 55%, stage I diastolic dysfunction, ICD wire in RV and RA, trace MR, moderate with peak/mean gradients 23/12 mmHg, TAWNYA 1.0 cm�, mild TR
Plan:
-continue supportive care of acute covid illness
-on tele overnight, patient noted to have periods of inappropriate tracking by device - Atach with bundle vs NSVT. will have rep interrogate. mostly asensed vpaced
-K stable. check mag
-BPs remain soft. attempting to resume OP coreg. entresto, lasix remain on hold
-trop peaked at 0.112. Suspect this is nonischemic myocardial injury related to moderate and hypotension in the setting of acute COVID infection. No noted complaints of chest discomfort and EKG without acute ischemic changes noted. continue
conservative mgmt
-Recent echo from 01/2024 with recovery in EF to 50-55%. Previously was noted to be 43% by an echo completed in [place]. Would not repeat at this time
-Currently on Paxlovid. Her outpatient Eliquis dose has been reduced to 2.5 mg twice daily for now
Progress Note - Timber Appraiser
Subjective
Date of Service: May 09, 2024
no CP, SOB overnight.
Objective
Labs:
05/09/24 05:11
05/09/24 05:11
Labs
Hgb 12.0 g/dL (12.0-16.0) 05/09/24 05:11
Hct 35.4 % (37.0-47.0) L 05/09/24 05:11
Plt Count 212 10^3/uL (130-400) 05/09/24 05:11
Sodium 140 mmol/L (135-145) 05/09/24 05:11
Potassium 4.0 mmol/L (3.5-5.1) 05/09/24 05:11
BUN 14 mg/dl (7-17) 05/09/24 05:11
Creatinine 0.7 mg/dL (0.6-1.0) 05/09/24 05:11
Glucose 82 mg/dl (70-99) 05/09/24 05:11
Troponins
05/08/24 05/08/24 05/08/24
00:13 04:22 12:02
Troponin I 0.044 H* 0.112 H* D 0.077 H* D
Vital Signs and I&O:
Vital Signs
Temp Pulse Resp BP Pulse Ox
98.5 F 88 15 97/41 96
05/09/24 07:59 05/09/24 07:26 05/09/24 07:26 05/09/24 06:08 05/09/24 07:26
Vital Signs
Temp Pulse Resp BP Pulse Ox
98.5 F 88 15 97/41 96
05/09/24 07:59 05/09/24 07:26 05/09/24 07:26 05/09/24 06:08 05/09/24 07:26
Intake & Output
05/07/24 05/08/24 05/09/24 05/10/24
07:59 07:59 07:59 07:59
Intake Total 210 / 210
Output Total 625 / 625
Balance 210 / 210 -625 / -625
[2024-05-09] MEDS: PROTONIX 40 MG PO (10:07)
[2024-05-09] MEDS: DELTASONE 10 MG PO (10:11)
[2024-05-09] MEDS: ZYRTEC 10 MG PO (10:11)
[2024-05-09] MEDS: VISBIOME 2 CAP PO (10:11)
[2024-05-09] MEDS: ELIQUIS 2.5 MG PO ×2 (10:12→20:03)
[2024-05-09] MEDS: COREG 6.25 MG PO ×2 (10:12→20:03)
[2024-05-09] MEDS: PAXLOVID 2X150 MG-100 MG DOSE PACK 1 DOSE PO ×2 (10:15→20:06)
[2024-05-09 11:14] LABS: Magnesium 1.7 mg/dl (1.6-2.3)
[2024-05-09] MEDS: ProAIR HFA INHALER INH (11:17)
--- NOTE | 2024-05-09 12:09 | CM ---
Patient with Hx CVA with aphasia with Dx COVID-19 infection, Nonsustained V. tach. Room air. Receiving IVF, Paxlovid. PT recommends HH. OT recommends HH vs. no needs. Per nurse assessment; non-verbal.
Spoke with patient's daughter Ana;
the patient resides with her daughter & son in law in a 2 story house with ramp, and chair lift to second floor.
The patient is alert, non-verbal and communicates by typing out messages on her iPhone.
She requires total care for ADLs such as bathing/dressing/toileting.
She ambulates short distances with her RW, and is able to get in/out of the car.
Daughter is her primary caregiver and occasionally has a private caregiver assist her- no set schedule.
Daughter expresses some caregiver burn-out and sadness seeing her mother in her current condition.
Patient can afford more caregiver hours however daughter not saying she is planning on adding more at this time.
DME - RW, w/c, commode, chair lift
VN - prior Abdirashid- daughter wishes to resume, for SN/PT/OT and requests CHUCKING MACHINE SET UP OPERATOR TOOL
SNF - none
PCP - Eileen Mittal
Pharmacy - [facility] [address], [place]
Daughter discussed Palliative Care with Dr Gastelum and she is receptive to that- agree to make referral.
Spoke with [facility]; they can accept and she will check if they have CHUCKING MACHINE SET UP OPERATOR TOOL available.
Plan home with Abdirashid BARRY, with Palliative Care, via car transport.
--- NOTE | 2024-05-09 12:29 | PTOTSP ---
Dysphagia Evaluation
Chewing/swallowing suspected to be functional based on clinical bedside swallowing evaluation. Family reported variable swallowing function prior to admission, reportedly progressively worsening and resulting in reduce PO intake but with no known
aspiration complications such as pneumonias. Consider outpatient video swallow study consult to further assess swallowing function given FTD.
Recommend:
1. Regular (order soft/moist foods given recent dental extraction), Thin Liquids
2. Medications as best tolerated
3. General aspiration precautions
4. Oral care 3x daily
5. No further dysphagia tx warranted. Consider outpatient video swallow study.
Patient has PPA. Some yes/no inconsistencies noted with gesture use. Patient can communicate via typing on her telephone. Please allow patient time to respond via this modality.
--- NOTE | 2024-05-09 13:01 | W.PN.PUL3 ---
Today's Communication / Plan
-
Paxlovid
Re-check CXR tomorrow AM and consider additional diuresis if clinically indicated
Up OOB as tolerated
Chronic prednisone
Pulmonary service will continue to briefly follow along.
Assessment
-
Assessment: 83-year-old female with a past medical history of DVT on Eliquis, asthma, hypertension, aphasia, ambulatory dysfunction and CHF who presents with shortness of breath and EMS placed patient onto oxygen and she required up to 10 L/min
with sats of 95%. Here in the ER in triage her saturations was 93% on room air. Patient does not wear home oxygen. Pulse rate 95, respiratory rate 24, temperature 97.6 �F and BP initially 61/37. Initial labs showed normal WBC at 6.8, elevated
D-dimer of 0.85, lactate 2.2, elevated troponin of 0.044, procalcitonin negative and COVID antigen is positive. CXR showed linear parenchymal opacities in the lower lobes likely due to atelectasis versus pneumonia. She was given DuoNebs,
vancomycin/Zosyn + IV fluids with NS 0.9% x 1 liter. She was admitted to the hospitalist service, started on Paxlovid and now pulmonary consulted for additional management/recommendations.
Chronic conditions RIBBON BLOCKER: History of DVT on Eliquis, history of asthma, hypertension, CHF, arthritis, aphasia, ambulatory dysfunction, situational anxiety, bilateral shoulder arthropathy
Impression:
#Suspected acute COVID-19 pneumonia vs recent covid-19 illness with continued viral shedding - I suspect the latter
#Acute respiratory failure with hypoxia � improved and patient no longer needing O2 -her hypoxia episode could also very well be related to her history of primary progressive aphasia
#Lactic acidosis � was likely due to hypotension with sepsis the lactate has now normalized
#Elevated troponin -likely due to type II VA with demand ischemia - peaked at 0.112 on 05/08/2024
#History of COPD/asthma
#Chronic HFpEF
#Frontotemporal dementia/primary progressive aphasia
Plan:
- Continue Paxlovid
- Continue spiriva with prn nebulized bronchodilators
- O2 requirements improved - no need for systemic steroids or remdesivir at this time (also no obvious lung opacities seen on CXR)
- It appears that she is on chronic prednisone, and would simply resume that for now with assessment daily if dose should be adjusted
- Maintain SpO2 >88-94% with supplemental O2 as needed
- Check home O2 assessment prior to discharge
- CXR repeated this AM shows no significant change with improved aeration to right costovertebral border
- Appears to have coarsened bronchovascular markings with suspected developing interstitial edema - I will give a dose of IV Lasix x1
- Re-check CXR tomorrow AM and give additional diuresis if clinically indicated
- Incentive spirometer encouraged
- Obtain any prior medical records of spirometry/PFTs/pulmonary consult documentation, CT chest imaging studies
- CRP check today, it is 8.3 --> this shows that there is not an acute inflammatory condition still happening in her lungs
- No need to continue trending cardiac troponin as it has already peaked; cardiology consulted and recs appreciated
- Replete electrolytes with K>4, Mg>2
- Maintain euglycemia with goal BG >100 and <180
- DVT ppx
Considering her diagnosis of primary progressive aphasia and the fact that her tachypneic episodes have been increasing lately and she has been having difficulty eating, would strongly recommend goals of care discussion at least to address code
status. Patient currently full code but the daughter said that the patient would not want to be on a ventilator. This will need to be addressed and changed accordingly. On 05/08, I recommend the patient obtain a living will and also see palliative
care as an outpatient with Dr. Sands. The number to call to make an appointment is: [phone]. I otherwise answered all of the patient and the patient's daughter's questions. The daughter says that she has already reached out to palliative
care and they plan to meet with them as an outpatient. She feels much better like a weight was lifted off her shoulders ever since reaching out to palliative care. Emotional support was provided to her.
Pulmonary service will continue to briefly follow along.
Total time spent today was 35 minutes for this encounter. Time includes reviewing laboratory test/imaging results, reviewing pertinent medical records, obtaining and reviewing medical history, performing an appropriate exam, ordering medications,
tests and procedures. Time also includes documentation of this encounter, coordinating patient care and communicating with other healthcare professionals. Total time does not include separately billed tests performed on this date of service.
Data:
CXR 05-09-2024: Minimal bibasilar opacity again seen without significant change could represent some mild subsegmental atelectasis and/or pneumonia.
CXR 05-08-2024: Predominantly linear parenchymal opacity projecting over the posterior lower lungs, probably within the right lower lobe. Morphologic appearance is suggestive of linear atelectasis, although pneumonia with linear morphology is also
possible.
TTE 02-12-2024:
Endocardial imaging is less than ideal. Left ventricle is mildly dilated.
Normal left ventricular systolic function. No regional wall motion
abnormalities are seen. LV ejection fraction is visually estimated at between
50 and 55% stage I diastolic dysfunction suggestive of abnormal relaxation.
ICD wire seen in right ventricle.
ICD/pacemaker wire present in the right atrial cavity.
Trace mitral regurgitation.
Moderate aortic stenosis. Peak/mean gradients across the aortic valve are
23/12 mmHg respectively. Using an LVOT diameter of 2.0 cm the aortic valve by
the Continuity equation is calculated at 1.0 cm2. Dimension;ess index of 0.3.
Mild tricuspid regurgitation.
Compared to report of an echocardiogram dated November 20, 2022 from [facility] in [facility], [place], LVEF was noted to be
mildly depressed at that time with an ejection fraction approximated at 43% and
no mention of focal wall motion abnormality. Mitral regurgitation was
previously noted to be moderate. No aortic stenosis was described.
Subjective Data
-
Date of Service:
Date of Service: May 09, 2024
Chief Complaint: Pulmonary Follow Up
Subjective:
Patient seen and evaluated today at bedside. Afebrile overnight. Daughter and patient's son-in-law at bedside. Patient is in no acute distress. Seems to be breathing comfortably on room air, SpO2 95%.
Review of Systems
General: Other (Unable to obtain as patient is nonverbal)
Objective Data
Data Reviewed
Vital Signs / I&O / Oxygen:
Vital Signs
Temp Pulse Resp BP Pulse Ox
98.7 F 88 15 97/41 95
05/09/24 12:30 05/09/24 07:26 05/09/24 07:26 05/09/24 06:08 05/09/24 08:20
Intake and Output
05/08/24 05/09/24 05/10/24
06:59 06:59 06:59
Intake Total 210 / 210
Output Total 625 / 625
Balance 210 / 210 -625 / -625
SaO2 95
Nasal Cannula flow liters per 93
minute
Physical Exam
General: Respiratory Distress (Negative) and Comfortable
HEENT: Normocephalic and Anicteric
Cardiovascular: S1-S2, Murmur (Negative) and Peripheral Edema (Trace lower extremity edema)
Respiratory: Wheeze (Negative), Crackles (Bibasilar), Rhonchi (Negative) and Non-Labored Respirations
GI: Soft, Non Distended, Non Tender and Normal Bowel Sounds
Neurology: Awake, Alert, Tremors (Negative), Non Verbal and Other (Follows all commands; aphasic)
Skin: Warm and Dry
Labs/Micro/Reports
Lab Data
05/09/24 05:11
05/09/24 05:11
Microbiology
05/08/24 13:41 Urine Urine Culture - Final
No Significant Growth
[2024-05-09] MEDS: TYLENOL 650 MG PO (13:45)
[2024-05-09] MEDS: MAGNESIUM OXIDE 500 MG PO (13:45)
[2024-05-09] MEDS: LASIX 40 MG IV (13:46)
--- NOTE | 2024-05-09 14:58 | W.PN.ID1 ---
Date of Service
Date of Service: May 09, 2024
Today's Communication
Continue Paxlovid x 5 days.
Assessment / Plan
Mild Covid 19 Infection
COPD
CHF
Nasal polyps - on prednisone
- patient vaccinated but does have risk factors for decompensation: age, COPD, CHF, mild hypotension
- elevated d-dimer may be due to covid itself
- no convincing evidence of pneumonia on CXR and procalcitonin is negative
- Continue 5 day course of paxlovid given risk factors
- dose adjust apixaban to 2.5 mg po bid while on paxlovid, after completion can resume the 5 mg BID dose
Chief Complaint
-: Other (COVID)
Subjective / Review of Systems
She is improving. SOB better. Less weak.
Vital Signs / Physical Exam
Vital Signs
Vital Signs
Temp Pulse Resp BP Pulse Ox
98.7 F 72 16 125/72 96
05/09/24 12:30 05/09/24 14:14 05/09/24 14:14 05/09/24 13:46 05/09/24 11:20
Physical Exam
Constitutional: No Acute Distress and Comfortable
Cardiovascular: Regular Rate and S1/S2
Pulmonary: Clear
Gastrointestinal: Soft, Non Tender, Non Distended and Normal Bowel Sounds
Extremities: Negative Edema
Objective Data
Lab Data
Lab Results
05/09/24 05:11
05/09/24 05:11
Estimated Creat Clear 66 ml/min 05/09/24 05:11
Lactic Acid Cancelled 05/08/24 16:46
Total Bilirubin 0.9 mg/dl (0.2-1.3) 05/09/24 05:11
AST 19 U/L (14-36) 05/09/24 05:11
ALT < 10 U/L (0-35) 05/09/24 05:11
Alkaline Phosphatase 49 U/L (38-126) 05/09/24 05:11
C-Reactive Protein 8.30 mg/L (0.0-10.00) 05/09/24 05:11
Most recent labs reviewed.
Micro Results:
05/08/24 13:41 Urine Culture - Final
Urine No Significant Growth
--- NOTE | 2024-05-09 15:44 | W.CARD.DEVCH ---
Cardiac Device Check
-
Device: Implanted Cardioverter-Defibrillator
Boat Laborer: [employer]
The patient's device was interrogated with assistance of the device route sales representative. The device had normal function. Tele strips reviewed with rep. Stuart to be most consistent with atrial tachycardia, with rate below detection limit. Device tracking
but not vpacing at rate of ~130bpm. will attempt to resume OP BB as BP allows.
--- NOTE | 2024-05-09 16:26 | PTCARENOTE ---
Addendum entered by Belkis Lin RN 05/09/24 16:28:
Oriented to room and call campa, able to make needs known. Informed of POC.
Original Note:
Transfer received from IMU. Covid precautions in place. Placed on tele monitor #25 upon arrival to unit - 100% v paced rhythm. Pt AAOx3, VSS, pleasant, comfortable upon transfer.
[2024-05-09] MEDS: LEXAPRO 20 MG PO (18:14)
[2024-05-09] MEDS: ENTRESTO 24 MG/26 MG 1 TAB PO (20:04)
[2024-05-09] MEDS: VITAMIN D3 (cholecalciferol) 75 MCG PO (22:46)
[2024-05-10 04:00] VITALS: BP 132/67
[2024-05-10 06:00] VITALS: BMI 31.5
[2024-05-10] MEDS: SYNTHROID 50 MCG PO (06:10)
[2024-05-10 07:00] VITALS: BP 156/71
[2024-05-10] MEDS: ProAIR HFA INHALER 2 PUFF INH ×4 (08:31→16:00)
[2024-05-10] MEDS: SPIRIVA RESPIMAT 2.5 MCG 2 PUFF INH (08:32)
--- NOTE | 2024-05-10 08:34 | W.PN.CARDCBS ---
Today's Communication / Plan
-
Cont Coreg
Tachycardia improved and was atrial tachycardia
Eliquis reduce while on Paxlovid as per ID
Please recall if needed.
Impression / Plan
-
Primary Product Safety Manager: Dr. Hobson
Impression:
Presentation with SOB
Covid infection
Hypotension
Elevated troponin peak 0.1, suspected nonischemic myocardial injury
aphasic as result of prior CVA
swallowing dysfunction as result of prior CVA
Hx cardiomyopathy with recovered EF
s/p [employer] ICD with [employer] [place] leads
Hx chronic HFpEF
Paroxysmal atrial fibrillation on chronic eliquis
Mod
HTN
HLD
hypothyroidism
COPD
history of DVT
ECHO 02/12/2024: EF 50 to 55%, stage I diastolic dysfunction, ICD wire in RV and RA, trace MR, moderate with peak/mean gradients 23/12 mmHg, TAWNYA 1.0 cm�, mild TR
Plan:
Troponins have improved with peak 0.1. Cont med tx of nonischemic myocardial injury.
The patient's device was interrogated with assistance of the device specialty sales representative. The device had normal function. Tele strips felt to be most consistent with atrial tachycardia, with rate below detection limit. Device tracking but not Vpacing at
rate of 130s bpm.
-Beta celsa resumed.
-Continue Coreg/Eliquis
Cont Paxlovid-continue supportive care of acute covid illness
-Eliquis dose reduced to 2.5 mg BID while on Paxlovid then increase back to 5 mg BID.
Recent echo from 01/2024 with recovery in EF to 50-55%. Previously was noted to be 43% by an echo completed in [place].
Stable cv status. Please recall if needed.
Progress Note - Product Safety Manager
Subjective
Date of Service: May 10, 2024
Pt seen and examined. No complaints. No chest pain or shortness of breath.
Objective
Labs:
05/09/24 05:11
05/09/24 05:11
Labs
Hgb 12.0 g/dL (12.0-16.0) 05/09/24 05:11
Hct 35.4 % (37.0-47.0) L 05/09/24 05:11
Plt Count 212 10^3/uL (130-400) 05/09/24 05:11
Sodium 140 mmol/L (135-145) 05/09/24 05:11
Potassium 4.0 mmol/L (3.5-5.1) 05/09/24 05:11
BUN 14 mg/dl (7-17) 05/09/24 05:11
Creatinine 0.7 mg/dL (0.6-1.0) 05/09/24 05:11
Glucose 82 mg/dl (70-99) 05/09/24 05:11
Troponins
05/08/24 05/08/24 05/08/24
00:13 04:22 12:02
Troponin I 0.044 H* 0.112 H* D 0.077 H* D
Vital Signs and I&O:
Vital Signs
Temp Pulse Resp BP Pulse Ox
98.1 F 79 18 156/71 95
05/10/24 07:00 05/10/24 07:00 05/10/24 07:00 05/10/24 07:00 05/10/24 07:00
Vital Signs
Temp Pulse Resp BP Pulse Ox
98.1 F 79 18 156/71 95
05/10/24 07:00 05/10/24 07:00 05/10/24 07:00 05/10/24 07:00 05/10/24 07:00
Intake & Output
05/08/24 05/09/24 05/10/24 05/11/24
06:59 06:59 06:59 06:59
Intake Total 210 / 210 1440 / 1440
Output Total 625 / 625 640 / 640
Balance -625 / -625 800 / 800
Physical Exam
Physical Exam
General: No acute distress, AAOX3
Neck: Negative JVD
Heart: Regular, Negative S3 positive S1/S2, Negative S4, No murmur
Lungs: CTA b/l, negative wheezes/rales/rhonchi
Abd: Positive BS, NT/ND, neg rebound/rigidity/guarding
Ext: Negative cyanosis/clubbing/edema
Neuro: nonfocal
[2024-05-10] MEDS: LASIX 20 MG PO (09:16)
[2024-05-10] MEDS: VISBIOME 2 CAP PO (09:16)
[2024-05-10] MEDS: ELIQUIS 2.5 MG PO (09:16)
[2024-05-10] MEDS: COREG 6.25 MG PO (09:17)
[2024-05-10] MEDS: DELTASONE 10 MG PO (09:17)
[2024-05-10] MEDS: KCL 20 MEQ PO (09:17)
[2024-05-10] MEDS: ZYRTEC 10 MG PO (09:17)
[2024-05-10] MEDS: PAXLOVID 2X150 MG-100 MG DOSE PACK 1 DOSE PO (09:17)
[2024-05-10] MEDS: PROTONIX 40 MG PO (09:17)
[2024-05-10] MEDS: ENTRESTO 24 MG/26 MG 1 TAB PO (09:17)
--- NOTE | 2024-05-10 10:36 | W.PN.HOSP.TC ---
Today's Communication/Plan
-
CXR
DC
Assessment / Plan
Assessment / Plan
COVID-19 infection- patient currently without any obvious evidence of pneumonia nor hypoxia. Started on Paxlovid because of the high risk. Eliquis dose decreased down due to interaction.Shortness of breath improved. No fevers. No increased
inflammatory markers-CRP normal.
Nonsustained V. tach-telemetry shows 3 episodes of nonsustained V. tach. Patient ICD in place interrogation showed atrial tachycardia no ventricular arrhythmia. Her EF is recovered. Resumed her Coreg which was on hold for hypotension.
Cardiology following.
Abnormal troponins-suspect nonischemic myocardial injury. Continue to follow.
chronic CHF with recovered EF-resume Entresto and Lasix as the blood pressure tolerates.F/U CXR for interstitial edema eval per pulmonary.
Chronic steroid use-for nasal polyposis-reintroduce her home dose but if the hemodynamics are an issue will give stress dose of steroids.
Stroke with aphasia. According to the daughter patient sometimes have issue with shortness of breath especially in the morning and sometimes in the night. Do not know if she has any postnasal drip as the patient cannot communicate. Rule out
GERD. keep the head with the bed elevated at 30 degrees. Obtain speech eval.
DC home today after CXR.
DW Daughter at bedside.
Anticipated Discharge: Today
Subjective/Interval History
-
Date of Service: May 10, 2024
Again she gives me a thumbs up for feeling good. Also thumbs up for no shortness of breath or chest pain.
Objective Data
-
Vital Signs:
Vital Signs
Temp Pulse Resp BP Pulse Ox
98.1 F 65 16 156/71 93
05/10/24 07:00 05/10/24 08:40 05/10/24 08:40 05/10/24 07:00 05/10/24 08:40
I&O
05/09/24 05/10/24 05/11/24
06:59 06:59 06:59
Intake Total 1440 / 1440
Output Total 625 / 625 640 / 640
Balance -625 / -625 800 / 800
Review of Systems
-
Unable to obtain full review of systems at this time due to: Patient Non-verbal
Physical Exam
-
General: No Apparent Distress
HEENT: Moist Mucous Membranes
Respiratory: Non Labored Respirations; Negative Wheezes, Crackles or Accessory Resp Muscle Use
Cardiac: Regular Rhythm and S1/S2
GI: Soft
Neuro: Awake and Alert
Psych: Calm
[2024-05-10 11:00] VITALS: BP 117/73
--- NOTE | 2024-05-10 13:05 | W.PN.PUL3 ---
Today's Communication / Plan
-
Doing well, stable on RA
Continue supportive care
Follow isolation recommendations per CDC/mask use in public
Discharge planning per team, we will sign off at this time, please call with questions
Assessment
-
83-year-old female with a past medical history of DVT on Eliquis, asthma, hypertension, aphasia, ambulatory dysfunction and CHF who presents with shortness of breath and EMS placed patient onto oxygen and she required up to 10 L/min with sats of
95%. Here in the ER in triage her saturations was 93% on room air. Patient does not wear home oxygen. Pulse rate 95, respiratory rate 24, temperature 97.6 �F and BP initially 61/37. Initial labs showed normal WBC at 6.8, elevated D-dimer of
0.85, lactate 2.2, elevated troponin of 0.044, procalcitonin negative and COVID antigen is positive. CXR showed linear parenchymal opacities in the lower lobes likely due to atelectasis versus pneumonia. She was given DuoNebs, vancomycin/Zosyn +
IV fluids with NS 0.9% x 1 liter. She was admitted to the hospitalist service, started on Paxlovid and now pulmonary consulted for additional management/recommendations.
Chronic conditions [employer]ARD: History of DVT on Eliquis, history of asthma, hypertension, CHF, arthritis, aphasia, ambulatory dysfunction, situational anxiety, bilateral shoulder arthropathy
Impression:
#Suspected acute COVID-19 pneumonia vs recent covid-19 illness with continued viral shedding - I suspect the latter
#Acute respiratory failure with hypoxia � improved and patient no longer needing O2 -her hypoxia episode could also very well be related to her history of primary progressive aphasia
#Lactic acidosis � was likely due to hypotension with sepsis the lactate has now normalized
#Elevated troponin -likely due to type II NH with demand ischemia - peaked at 0.112 on 05/08/2024
#History of COPD/asthma
#Chronic HFpEF
#Frontotemporal dementia/primary progressive aphasia
Plan:
COVID infection
- Continue Paxlovid
- Continue spiriva with prn nebulized bronchodilators
- O2 requirements improved - on room air
No need for systemic steroids or remdesivir at this time (also no obvious lung opacities seen on CXR)
It appears that she is on chronic prednisone, and would simply resume that for now with assessment daily if dose should be adjusted
- Maintain SpO2 >88-94% with supplemental O2 as needed
- Check home O2 assessment prior to discharge
- CXR repeated this AM shows no acute findings
- Incentive spirometer encouraged
- Obtain any prior medical records of spirometry/PFTs/pulmonary consult documentation, CT chest imaging studies
- CRP check today, it is 8.3 --> this shows that there is not an acute inflammatory condition still happening in her lungs
- No need to continue trending cardiac troponin as it has already peaked; cardiology consulted and recs appreciated
- Replete electrolytes with K>4, Mg>2
- Maintain euglycemia with goal BG >100 and <180
- DVT ppx
Data:
CXR 05-09-2024: Minimal bibasilar opacity again seen without significant change could represent some mild subsegmental atelectasis and/or pneumonia.
CXR 05-08-2024: Predominantly linear parenchymal opacity projecting over the posterior lower lungs, probably within the right lower lobe. Morphologic appearance is suggestive of linear atelectasis, although pneumonia with linear morphology is also
possible.
TTE 02-12-2024: Endocardial imaging is less than ideal. Left ventricle is mildly dilated. Normal left ventricular systolic function. No regional wall motion abnormalities are seen. LV ejection fraction is visually estimated at between 50 and 55%
stage I diastolic dysfunction suggestive of abnormal relaxation. ICD wire seen in right ventricle. ICD/pacemaker wire present in the right atrial cavity. Trace mitral regurgitation. Moderate aortic stenosis. Peak/mean gradients across the aortic
valve are 23/12 mmHg respectively. Using an LVOT diameter of 2.0 cm the aortic valve by the Continuity equation is calculated at 1.0 cm2. Dimension;ess index of 0.3. Mild tricuspid regurgitation.
Total time spent today was 35 minutes for this encounter. Time includes reviewing laboratory test/imaging results, reviewing pertinent medical records, obtaining and reviewing medical history, performing an appropriate exam, ordering medications,
tests and procedures. Time also includes documentation of this encounter, coordinating patient care and communicating with other healthcare professionals. Total time does not include separately billed tests performed on this date of service.
Subjective Data
-
Date of Service:
Date of Service: May 10, 2024
Chief Complaint: Pulmonary Follow Up
Subjective:
no new events, remains stable on RA
nonverbal, given thumbs up
Objective Data
Data Reviewed
Vital Signs / I&O / Oxygen:
Vital Signs
Temp Pulse Resp BP Pulse Ox
98.7 F 70 16 117/73 94
05/10/24 11:00 05/10/24 11:43 05/10/24 11:43 05/10/24 11:00 05/10/24 11:00
Intake and Output
05/09/24 05/10/24 05/11/24
06:59 06:59 06:59
Intake Total 1440 / 1440
Output Total 625 / 625 640 / 640
Balance -625 / -625 800 / 800
SaO2 94
Nasal Cannula flow liters per 93
minute
Physical Exam
General: Respiratory Distress (Negative) and Comfortable
HEENT: Normocephalic and Anicteric
Cardiovascular: S1-S2, Murmur (Negative) and Peripheral Edema (Trace lower extremity edema)
Respiratory: Clear and Non-Labored Respirations
GI: Soft, Non Distended, Non Tender and Normal Bowel Sounds
Neurology: Awake, Alert, Tremors (Negative), Non Verbal and Other (Follows all commands; aphasic)
Skin: Warm and Dry
Labs/Micro/Reports
Lab Data
05/09/24 05:11
05/09/24 05:11
Microbiology
05/08/24 13:41 Urine Urine Culture - Final
No Significant Growth
--- NOTE | 2024-05-10 14:52 | W.DS.TRANS ---
DC Summary - Regulatory Consultant
-
Discharge Instructions:
Discharge Diagnosis/Procedures COVID 19 infection
Diet Regular
Activity As tolerated
Driving Restrictions No driving
Other Services VN
Instructions:
Stand-Alone Forms:
Changes to Home Medications: Yes
Discharge Medications:
DC Medications w/original date entered in [facility] Directions
acetaminophen 500 mg tablet (Tylenol Extra Strength) 500 mg PO Q6HPRN PRN mild pain 10/09/14
cetirizine 10 mg tablet 10 mg PO DAILY Allergies 10/09/14
colesevelam 625 mg tablet (WelChol) 1,250 mg PO AC High Cholesterol 10/09/14
fluticasone propionate 50 mcg/actuation nasal spray,suspension 1 spray intranasal DAILY Congestion 10/09/14
furosemide 40 mg tablet 20 mg PO DAILY Fluid Retention/Swelling 10/09/14
levothyroxine 50 mcg tablet 50 mcg PO DAILY AT 0700 Thyroid 10/09/14
potassium chloride 20 mEq tablet,extended release(part/cryst) (Klor-Con M) 20 meq PO DAILY Supplement 10/09/14
prednisone 10 mg tablet 10 mg PO DAILY SINUSITIS ##50 10/09/14
apixaban 5 mg tablet 5 mg PO BID Blood Clot Prevention/Tx 08/21/23
carvedilol 6.25 mg tablet 6.25 mg PO BID Blood Pressure 08/21/23
cholecalciferol (vitamin D3) 25 mcg (1,000 unit) capsule (Vitamin D3) 75 mcg PO HS Supplement 08/21/23
escitalopram oxalate 10 mg tablet 20 mg PO QPM Mental Health/Anxiety 08/21/23
omeprazole 40 mg capsule,delayed release 40 mg PO DAILY gerd 08/21/23
sacubitril 24 mg-valsartan 26 mg tablet (Entresto) 1 tab PO BID Heart Failure 08/21/23
colesevelam 625 mg tablet 1,875 mg PO BID High Cholesterol 05/08/24
apixaban 2.5 mg tablet (Eliquis) 2.5 mg PO BID #5 tabs 05/10/24
nirmatrelvir 300 mg (150 mg x2)-ritonavir 100 mg tablet,dose pack (Paxlovid) 1 ea PO BID #30 ea 05/10/24
Home Medication Changes
New medication-Paxlovid for 21 days
Take medication-decrease Eliquis to 2.5 mg twice till 16th and resume usual dose of 5 mg twice daily
Pending Results: No
[2024-05-10 15:45] VITALS: BP 105/59
[2024-05-10] MEDS: ProAIR HFA INHALER INH (16:00)
== END 2024-05-10 18:22 | disposition home health service (06) | DRG 178 ==
LOC: 3 WEST ACU 03:58
PROVIDERS: Clinical Nurse Specialist Family Health; Internal Medicine Cardiovascular Disease; Nurse Practitioner Gerontology; ADMITTING PHYSICIAN Internal Medicine; ATTENDING PHYSICIAN Internal Medicine; CONSULT PHYSICIAN Internal Medicine Cardiovascular Disease; EMERGENCY PHYSICIAN Emergency Medicine; FAMILY PHYSICIAN Student in an Organized Health Care Education/Training Program; OTHER PHYSICIAN Internal Medicine Critical Care Medicine
PROC: 4B02XTZ Measurement of Cardiac Defibrillator, External Approach (ICD-10-PCS; 2024-05-09)
DX: U07.1 COVID-19 (principal); E87.20 Acidosis, unspecified; I50.32 Chronic diastolic (congestive) heart failure; I5A Non-ischemic myocardial injury (non-traumatic); J98.11 Atelectasis; I47.29 Other ventricular tachycardia; Z87.891 Personal history of nicotine dependence; I11.0 Hypertensive heart disease with heart failure; I69.320 Aphasia following cerebral infarction; Z11.52 Encounter for screening for COVID-19
CPT/HCPCS: 71045; 71046; 80053; 81003; 81015; 83605; 83735; 83880; 84145; 84484; 85027; 85379; 86140; 87086; 87811; 92610; 93005; 93970; 94640; 96361; 96365; 97162; 97167; 99285

== ENCOUNTER 2024-08-09 13:07 | Emergency (ER) | payer MEDICARE, SELFPAY ==
[2024-08-09 13:08] VITALS: BP 97/57
[2024-08-09 13:09] VITALS: BP 97/57
[2024-08-09 13:39] LABS: % Basophils 0.5 % (0-2); % Eosinophils 2.2 % (0-6); % Immature Granulocytes 0.7 % (0-0.5); % Lymphocytes 11.9 % (20.5-51.1); % Neutrophils 79.7 % (42.2-75.2); Absolute Basophils 0.1 10^3/uL (0-0.2); Absolute Eosinophils 0.4 10^3/uL (0-0.7); Absolute Immature Granulocytes 0.1 10^3/uL (0-0.05); Absolute Lymphocytes 1.9 10^3/uL (1.2-3.4); Absolute Monocytes 0.8 10^3/uL (0.1-0.6); Absolute Neutrophils 12.9 10^3/uL (1.4-6.5); Hemoglobin 12.6 g/dL (12.0-16.0); Mean Corp Hgb Conc. 32.3 g/dL (33.0-37.0); Mean Corpuscular Hgb 33.4 pg (27.0-31.0); Mean Corpuscular Volume 103.4 fL (81.0-99.0); Nucleated Red Blood Cells % 0 %; Platelet Count 225 10^3/uL (130-400); Red Blood Cell Count 3.77 10^6/uL (4.20-5.40); Red Cell Dist. Width 13.1 % (11.5-14.5); White Blood Cell Count 16.2 10^3/uL (4.8-10.8)
[2024-08-09 13:53] LABS: ALT (SGPT) 12 U/L (0-35); AST (SGOT) 22 U/L (14-36); Albumin 3.9 g/dl (3.5-5.0); Alkaline Phosphatase 66 U/L (38-126); Blood Urea Nitrogen 19 mg/dl (7-17); Calcium 9.3 mg/dl (8.4-10.2); Carbon Dioxide 25 mmol/L (22-30); Chloride 106 mmol/L (98-107); Glucose 164 mg/dl (70-99); Potassium 4.5 mmol/L (3.5-5.1); Sodium 142 mmol/L (135-145); Total Bilirubin 0.7 mg/dl (0.2-1.3); Total Protein 6.7 g/dl (6.3-8.2); eGFR > 60.00
[2024-08-09 13:58] VITALS: BP 86/53
[2024-08-09 14:00] VITALS: BP 97/54
--- NOTE | 2024-08-09 14:38 | ED.GENMED ---
History of Present Illness
General
Chief Complaint: Breathing Problem
Source: patient
Exam Limitations: none
Time Seen by Provider: 08/09/24 13:31
Nursing documentation reviewed up to this point in time: agreed with
History of Present Illness
History of Present Illness:
Patient with history of aphasia, from likely CVA, asthma, and intermittent episodes of shortness of breath, currently under palliative care, due to progressively worsening overall symptoms, presents to ED from home secondary to difficulty breathing
with hypoxia. Per daughter who lives with patient and is a caregiver, states that patient's pulse ox went down to 84% and her heart rate increased to 150 with extreme difficulty breathing. Patient was suctioned and provided with nebulizer
treatment as well as small dose of morphine, as recommended by palliative care, without improvement in symptoms. Upon arrival, however, patient's pulse ox is noted to be normal, and without any difficulty with breathing. Patient is alert and
awake. Patient denies any discomfort by nodding her head. When seen in ED by daughter, she states that patient appears to be back to her baseline.
Past History
Past History
ED Past Medical History: Asthma, CHF, COPD, HTN, Hypothyroidism and Other (Aphasia, Bronchitis)
ED Past Surgical History: Cardiac (Pacemaker/ Defib), Cholecystectomy, Gynecological (Tubal, ), Orthopedic (Right hip replacement, Richard knee replacement, ) and Other (cataracts)
Social History
Tobacco: Former smoker
Alcohol: None
Personal:
Living: with family
Review of Systems
Review of Systems
Allergies reviewed?: Yes
All Other Systems: ROS reviewed and negative except as documented in HPI and ROS
Constitutional: Reports no symptoms
EENT: Reports no symptoms
Respiratory: Reports cough and trouble breathing
Cardiac: Reports no symptoms
ABD/GI: Reports no symptoms
Musculoskeletal: Reports no symptoms
Skin: Reports no symptoms
Neurological: Reports no symptoms
Phy Exam
Physical Exam
Physical Exam:
Physical Exam
General: no apparent distress, not acutely ill. afebrile
Head: nc/at. eomi
Neck: supple. no meningeal signs.
Heart: s1/s2 regular rate and rhythm, no murmur. equal radial pulses.
Lungs: no acute respiratory distress. clear bilaterally
Abdomen: normal bowel sounds. not tender.
Neuro: alert and oriented. no focal neurological deficits
Skin: no rash
Psychiatric: well kept. interactive and cooperative
Extremities: no edema. no calf tenderness.
Scores
Heart Failure Risk
Heart Failure Risk Score: Not Applicable
Course
Orders/Labs/Results
Orders:
Orders
08/09/24 13:15
CXR2 [CR Chest - 2 Views ] Urgent
Comment:
Reason For Exam: SOB
08/09/24 13:21
CMP [Comprehensive Metabolic Panel] Urgent
Complete Blood Count/With Diff Urgent
NT-proBNP Urgent
08/09/24 13:58
Add On- LAB Urgent
Tests Added?: Pro-BNP
08/09/24 14:38
Case Management Consult ONCE
Case Management Consult: Discharge Planning
Abnormal Lab Results
08/09/24
13:21
WBC 16.2 H 10^3/uL
(4.8-10.8)
RBC 3.77 L 10^6/uL
(4.20-5.40)
MCV 103.4 H fL
(81.0-99.0)
MCH 33.4 H pg
(27.0-31.0)
MCHC 32.3 L g/dL
(33.0-37.0)
Abs Immat Gran (auto) 0.1 H 10^3/uL
(0-0.05)
Absolute Neuts (auto) 12.9 H 10^3/uL
(1.4-6.5)
Absolute Monos (auto) 0.8 H 10^3/uL
(0.1-0.6)
Immature Gran % 0.7 H %
(0-0.5)
Neutrophils % 79.7 H %
(42.2-75.2)
Lymphocytes % 11.9 L %
(20.5-51.1)
BUN 19 H mg/dl
(7-17)
Glucose 164 H mg/dl
(70-99)
08/09/24 13:21
08/09/24 13:21
Vital Signs
Initial and Last Documented VS:
Initial Vital Signs
BP
97/57
08/09/24 13:08
Last Documented Vital Signs
Temp Pulse Resp BP Pulse Ox
97.7 F 66 18 98/59 97
08/09/24 13:09 08/09/24 15:00 08/09/24 15:00 08/09/24 15:00 08/09/24 15:00
MDM/Problems Addressed
MDM/Problems Addressed:
Patient with an unremarkable workup in ED, including blood work and chest x-ray. Patient also remains hemodynamically stable without any acute respite distress.
Family given information for potential home oxygen at home by case management.
Daughter feels comfortable taking the patient home at this time, where she will watch her closely.
*Critical Care Note
Total Time (30-74mins, 75-104mins- exclusive of procedures): Not Applicable
ED Attending Note
-
Portions of this chart may have been created with voice recognition software.� Occasional wrong word or��sound alike� substitutions may have occurred due to the inherent limitations of voice recognition software.
Discharge Plan
Departure
Patient Disposition: Home (Routine Discharge)
Date of Disposition: 08/09/24
Time of Disposition: 14:59
Patient with high blood pressure during this ER visit?: No
Condition: Fair
Discharge Problem:
Dyspnea
Instructions: Shortness of Breath (Dyspnea) (DC)
Prescriptions:
No Action
furosemide 40 MG tablet
20 mg PO DAILY
cetirizine 10 MG tablet
10 mg PO DAILY
potassium chloride [Klor-Con M20] 20 MEQ tablet,ER particles/crystals
20 meq PO DAILY
colesevelam [WelChol] 625 MG tablet
1,250 mg PO AC
levothyroxine 50 MCG tablet
50 mcg PO DAILY AT 0700
acetaminophen [Tylenol Extra Strength] 500 MG tablet
500 mg PO Q6HPRN PRN (Reason: mild pain)
fluticasone propionate 1 SPRAY spray,suspension
1 spray intranasal DAILY
prednisone 10 MG tablet
10 mg PO DAILY Qty: 50 0RF
carvedilol 6.25 mg tablet
6.25 mg PO BID
omeprazole 40 mg capsule,delayed release(DR/EC)
40 mg PO DAILY
cholecalciferol (vitamin D3) [Vitamin D3] 25 mcg (1,000 unit) capsule
75 mcg PO HS
escitalopram oxalate 10 mg tablet
20 mg PO QPM
apixaban 5 mg Tablet
5 mg PO BID
Entresto 24-26 mg tablet
1 tab PO BID
colesevelam 625 mg Tablet
1,875 mg PO BID
Eliquis 2.5 mg Tablet
2.5 mg PO BID Qty: 5 0RF
Paxlovid 300 mg (150 mg x 2)-100 mg Tablets,Dose Pack
1 ea PO BID Qty: 30 0RF
Rx Instructions:
take for 2 and half day ONLY
Referrals:
Alyssa Hernandez MD [Family Provider] -
Activity Restrictions/Additional Instructions:
As discussed, please follow-up with your primary care physician with any further concerns.
Interventions
Interventions:
*Risk Screen - Suicide Last Done: 08/09/24 13:20
*General Assessment Last Done: 08/09/24 13:17
*Neglect/Abuse Screening Last Done: 08/09/24 13:20
ED- Fall Risk Assessment Last Done: 08/09/24 13:17
*ED COVID-19 Vaccine History Last Done: 08/09/24 13:17
*Nursing Disposition Last Done: 08/09/24 15:51
ED- Cardiac Assessment Last Done: 08/09/24 13:17
ED- Pulmonary Assessment Last Done: 08/09/24 13:17
Discharge Date and Time
Discharge Date/Time: 08/09/24 15:55
Print Language: [place]
[2024-08-09 15:00] VITALS: BP 98/59
--- NOTE | 2024-08-09 15:01 | CM ---
CM consult placed for 02 OOP pricing. Patient has had multiple 'episodes (as her daughter describes them) where she will de-sat below 88%; sometimes as low 83% and is not able to reach an optimal 02 level. Her daughter then has to call 911, she
receives 02 in the ED and then goes back home.
Chart reviewed. CM introduced self and role. Patient's daughter and a male family member also in room. Daughter shared that patient is current with palliative care. Daughter also shared she has been in contact several times with patient's insurance;
and they will not approve paying for 02 for her. CM called [facility] who informed CM that it would cost $180/month (this matthews includes concentrator and portable tanks). CM shared this information with the 3 members in the room, who were agreeable to
cost.
Daughter did not want home 02 set up today; she first wanted to discuss about a nocturnal oximetry test with the palliative care team first. CM gave daughter [facility]'s [place] office information and wrote down what the cost would be.
Attending physician made aware.
[2024-08-09 15:02] LABS: NT-proBNP 712 pg/ml
== END 2024-08-09 15:55 | disposition home or self-care (01) ==
LOC: EMR 13:07
PROVIDERS: EMERGENCY PHYSICIAN Emergency Medicine; FAMILY PHYSICIAN Emergency Medicine
DX: R06.00 Dyspnea, unspecified (principal); R05.9 Cough, unspecified; I11.0 Hypertensive heart disease with heart failure; I50.9 Heart failure, unspecified; E03.9 Hypothyroidism, unspecified; J44.89 Other specified chronic obstructive pulmonary disease; R47.01 Aphasia; M19.90 Unspecified osteoarthritis, unspecified site; Z95.810 Presence of automatic (implantable) cardiac defibrillator; Z90.49 Acquired absence of other specified parts of digestive tract; Z96.653 Presence of artificial knee joint, bilateral; Z96.641 Presence of right artificial hip joint; Z87.891 Personal history of nicotine dependence
CPT/HCPCS: 99284; 71046; 80053; 83880; 85025

== ENCOUNTER 2025-02-07 18:18 | Observation (INO) | payer MEDICARE, SELFPAY ==
[2025-02-07] VITALS (10 sets, daily range): BP systolic 81–152; BP diastolic 46–71; PULSE 69–79; BMI 32.7
--- NOTE | 2025-02-07 14:19 | ED.GENMED ---
History of Present Illness
General
Chief Complaint: Musculo-Skeletal Complaint
Source: patient and family
Exam Limitations: other (baseline aphasia)
Time Seen by Provider: 02/07/25 14:03
History of Present Illness
History of Present Illness:
84yoF with a history of CHF, AICD/pacemaker, atrial fibrillation on Eliquis, COPD on chronic prednisone, hypertension, and hypothyroidism presenting via EMS for evaluation of right leg pain. Patient has been having increasing pain in the right leg
over the past several days. Pain is located on the medial aspect of the calf and thigh. No reported injuries. Daughter states that she has been unable to walk due to her pain. Daughter is concerned that she may have a blood clot. She has also
been dizzy over the past several weeks.
Past History
Past History
ED Past Medical History: Asthma, CHF, COPD, HTN, Hypothyroidism and Other (Aphasia, Bronchitis)
ED Past Surgical History: Cardiac (Pacemaker/ Defib), Cholecystectomy, Gynecological (Tubal, ), Orthopedic (Right hip replacement, Richard knee replacement, ) and Other (cataracts)
Social History
Tobacco: Former smoker
Alcohol: None
Personal:
Living: with family
Phy Exam
General Physical Exam
General Presentation: well appearing and no apparent distress
General Skin: warm and dry
General Habitus: normal
General Mental: alert
ENT Exam
ENT Exam: normocephalic
Cardiovascular Exam
Cardiovascular Exam: regular rate/rhythm
Pulmonary Exam
Pulmonary Exam: no respiratory distress and decreased breath sounds
Neurological Exam
Neurological Exam: alert
Musculoskeletal Exam
Musculoskeletal Exam: other (R leg: Varicosities noted. Otherwise normal to inspection without pitting edema. +Tenderness to medial calf. ROM of hip and knee intact. 2+ DP pulse.)
Skin Exam
Skin Exam: normal color and warm/dry
Psychiatric Exam
Psychiatric Exam: normal mood/affect
Course
Orders/Labs/Results
Orders:
Orders
04/12/25 14:17
Electrocardiogram (*1) Urgent
Reason for Study: Vertigo / Dizzy
CT Head W/o Iv Contrast Urgent
Comment:
Reason For Exam: dizziness
Cardiac Monitoring- Treatment ONCE
EKG- Treatment ONCE
Venous Doppler Lwr Ext Rt [US Periph Venous LOWER Ext RT] Urgent
Comment:
Reason For Exam: R leg pain
02/07/25 14:19
Complete Blood Count/With Diff Urgent
Comprehensive Metabolic Panel Urgent
Troponin I Urgent
02/07/25 15:03
CR Knee- Right 4 Or More View* Urgent
Comment:
Reason For Exam: atraumatic pain
Hip, Right 2-3 Views [CR Hip - RT w/wo Pel 2-3 Vw*] Urgent
Comment:
Reason For Exam: atraumatic pain
Include a pelvis x-ray?: Yes
02/07/25 15:07
Oxycodone/Acetaminophen [Percocet 5/325] 1 tablet PO NOW STA
02/07/25 17:24
Oxycodone/Acetaminophen [Percocet 5/325] 1 tablet PO NOW STA
02/07/25 17:25
HYDROmorphone [Dilaudid] 0.5 mg IV NOW STA
Abnormal Lab Results
02/07/25
14:19
RBC 3.75 L 10^6/uL
(4.20-5.40)
MCV 100.0 H fL
(81.0-99.0)
MCH 32.8 H pg
(27.0-31.0)
MCHC 32.8 L g/dL
(33.0-37.0)
Absolute Neuts (auto) 7.0 H 10^3/uL
(1.4-6.5)
Neutrophils % 77.7 H %
(42.2-75.2)
Lymphocytes % 14.3 L %
(20.5-51.1)
Chloride 108 H mmol/L
(98-107)
BUN 22 H mg/dl
(7-17)
Glucose 122 H mg/dl
(70-99)
02/07/25 14:19
02/07/25 14:19
Vital Signs
Initial and Last Documented VS:
Initial Vital Signs
BP
118/54
02/07/25 13:50
Last Documented Vital Signs
Temp Pulse Resp BP Pulse Ox
98.5 F 73 18 118/54 98
02/07/25 13:51 02/07/25 14:05 02/07/25 16:00 02/07/25 13:51 02/07/25 13:51
MDM/Problems Addressed
Differential Diagnosis Includes:
84yoF here with atraumatic R leg pain x several days. Unable to walk due to her symptoms. VSS. She is well appearing in no distress. R leg is normal to inspection other than some varicosities. ROM normal. RLE is neurovascularly intact. Differential
diagnosis includes but is not limited to: DVT, muscle strain, fracture, referred pain
Initial ED plan: Check cardiac labs, EKG, venous duplex, x-rays of R hip/knee, and CT head given concern for dizziness.
*EKG
Interpreted by ED Provider?: Yes
EKG Intrepretation Date: 02/07/25
Heart Rate: 70
Rate: normal
Rhythm: av sequential
[place]: left axis deviation
Ischemia: no ischemia
*Critical Care Note
Total Time (30-74mins, 75-104mins- exclusive of procedures): Not Applicable
Update Note
Update Note:
Venous duplex negative for DVT. X-rays negative for osseous abnormalities. Labs also unremarkable. Pain uncontrolled with Percocet. Family does not feel comfortable taking patient at home given that she is unable to ambulate. Will admit for PT
evaluation and possible placement.
ED Attending Note
-
Portions of this chart may have been created with voice recognition software.� Occasional wrong word or��sound alike� substitutions may have occurred due to the inherent limitations of voice recognition software.
Discharge Plan
Departure
Patient Disposition: Admit
Date of Disposition: 02/07/25
Time of Disposition: 17:26
Presentation/result/management discussed w/ accepting MD/DO: Hospitalist
Discharge Problem:
Right leg pain, Ambulatory dysfunction
Prescriptions:
No Action
furosemide 40 MG tablet
20 mg PO DAILY
cetirizine 10 MG tablet
10 mg PO DAILY
potassium chloride [Klor-Con M20] 20 MEQ tablet,ER particles/crystals
20 meq PO DAILY
colesevelam [WelChol] 625 MG tablet
1,250 mg PO AC
levothyroxine 50 MCG tablet
50 mcg PO DAILY AT 0700
acetaminophen [Tylenol Extra Strength] 500 MG tablet
500 mg PO Q6HPRN PRN (Reason: mild pain)
fluticasone propionate 1 SPRAY spray,suspension
1 spray intranasal DAILY
prednisone 10 MG tablet
10 mg PO DAILY Qty: 50 0RF
carvedilol 6.25 mg tablet
6.25 mg PO BID
omeprazole 40 mg capsule,delayed release(DR/EC)
40 mg PO DAILY
cholecalciferol (vitamin D3) [Vitamin D3] 25 mcg (1,000 unit) capsule
75 mcg PO HS
escitalopram oxalate 10 mg tablet
20 mg PO QPM
apixaban 5 mg Tablet
5 mg PO BID
Entresto 24-26 mg tablet
1 tab PO BID
colesevelam 625 mg Tablet
1,875 mg PO BID
Eliquis 2.5 mg Tablet
2.5 mg PO BID Qty: 5 0RF
Paxlovid 300 mg (150 mg x 2)-100 mg Tablets,Dose Pack
1 ea PO BID Qty: 30 0RF
Rx Instructions:
take for 2 and half day ONLY
Referrals:
Angela Hussein CRNP [Family Provider] -
Interventions
Interventions:
*Risk Screen - Suicide Last Done: 02/07/25 13:51
*General Assessment Last Done: 02/07/25 13:51
*Neglect/Abuse Screening Last Done: 02/07/25 13:51
*ED- Fall Risk Assessment Last Done: 02/07/25 13:51
*ED COVID-19 Vaccine History Last Done: 02/07/25 13:51
ED-Musculoskeletal Assessment Last Done: 02/07/25 13:54
Discharge Date and Time
Print Language: [id number]
[2025-02-07 14:24] LABS: % Basophils 0.4 % (0-2); % Eosinophils 0.2 % (0-6); % Immature Granulocytes 0.4 % (0-0.5); % Lymphocytes 14.3 % (20.5-51.1); % Neutrophils 77.7 % (42.2-75.2); Absolute Lymphocytes 1.3 10^3/uL (1.2-3.4); Absolute Monocytes 0.6 10^3/uL (0.1-0.6); Hematocrit 37.5 % (37.0-47.0); Hemoglobin 12.3 g/dL (12.0-16.0); Mean Corp Hgb Conc. 32.8 g/dL (33.0-37.0); Mean Corpuscular Hgb 32.8 pg (27.0-31.0); Mean Platelet Volume 9.5 fL (7.4-10.4); Nucleated Red Blood Cells % 0 %; Platelet Count 251 10^3/uL (130-400); Red Blood Cell Count 3.75 10^6/uL (4.20-5.40); Red Cell Dist. Width 12.6 % (11.5-14.5)
[2025-02-07 14:43] LABS: ALT (SGPT) 11 U/L (0-35); AST (SGOT) 20 U/L (14-36); Albumin 3.7 g/dl (3.5-5.0); Alkaline Phosphatase 59 U/L (38-126); Blood Urea Nitrogen 22 mg/dl (7-17); Calcium 9.5 mg/dl (8.4-10.2); Carbon Dioxide 26 mmol/L (22-30); Chloride 108 mmol/L (98-107); Glucose 122 mg/dl (70-99); Potassium 4.5 mmol/L (3.5-5.1); Sodium 140 mmol/L (135-145); Total Bilirubin 0.6 mg/dl (0.2-1.3); Total Protein 6.5 g/dl (6.3-8.2); eGFR > 60.00
[2025-02-07 14:53] LABS: Troponin I < 0.012 ng/ml
[2025-02-07] MEDS: PERCOCET 5/325 1 TABLET PO (15:14)
--- NOTE | 2025-02-07 17:34 | HPS.HSE ---
Family Physician
-
Family Physician: Angela Hussein
Chief Complaint
-
right LE pain
History of Present Illness
84yoF with a history of CHF, AICD/pacemaker, atrial fibrillation on Eliquis, COPD on chronic prednisone, hypertension, and hypothyroidism, expressive aphasia, nonverbal presenting via EMS for evaluation of right leg pain for past three days. it is
from her lower part of leg to upper thigh. she has hxt of dizziness which progressively getting worse. today she was not able to walk with walker at all due to pain. denied STEARNS or syncope.denied fever, chills, chest pain, sob. denied abdominal
pain.n.v.d.denied dysuria or hematuria.
diagnostics imaging negative for acute findings. admitting for further management.
Medical History
Past Medical History
Past Medical History: Reports Other
Additional Past Medical History:
Picks disease
A-fib
CHF
Hypothyroidism
Hyperlipidemia
DVT
Dementia
Asthma
Measles/mumps
Chickenpox
Hypertension
Ambulatory dysfunction anxiety
Past Surgical History: Reports Other
Additional Past Surgical History:
Bilateral knee surgeries
Cholecystectomy
Right hip replacement
Pacemaker
Cataract surgery
Social History
Tobacco: Non-smoker
Alcohol: None
Drug: None
Living: With Family
Family History
Family History: Not pertinent
Allergies / Home Medications
Allergies reflects when Allergies were last updated in [facility].
Home Medications with original date entered in [facility]
Allergy/Medication List:
Allergies
Allergy/AdvReac Type Severity Reaction Status Date / Time
aspirin Allergy Anaphylaxis Verified 05/08/24 00:10
ketorolac tromethamine Allergy Unknown Verified 05/08/24 00:10
[From Toradol]
Igrkgpu-BJO-OcE Reductase AdvReac Unknown Verified 05/08/24 00:10
Inhibitor
[Uemwfbm-Pod-Tsj Reductase
Inhibitor]
iv dye Allergy Anaphylaxis Uncoded 05/08/24 00:10
Home Medications
acetaminophen 500 mg tablet (Tylenol Extra Strength) 500 mg PO Q6HPRN PRN mild pain 10/09/14
cetirizine 10 mg tablet 10 mg PO DAILY Allergies 10/09/14
colesevelam 625 mg tablet (WelChol) 1,250 mg PO AC High Cholesterol 10/09/14
fluticasone propionate 50 mcg/actuation nasal spray,suspension 1 spray intranasal DAILY Congestion 10/09/14
furosemide 40 mg tablet 20 mg PO DAILY Fluid Retention/Swelling 10/09/14
levothyroxine 50 mcg tablet 50 mcg PO DAILY AT 0700 Thyroid 10/09/14
potassium chloride 20 mEq tablet,extended release(part/cryst) (Klor-Con M) 20 meq PO DAILY Supplement 10/09/14
prednisone 10 mg tablet 10 mg PO DAILY SINUSITIS ##50 10/09/14
apixaban 5 mg tablet 5 mg PO BID Blood Clot Prevention/Tx 08/21/23
carvedilol 6.25 mg tablet 6.25 mg PO BID Blood Pressure 08/21/23
cholecalciferol (vitamin D3) 25 mcg (1,000 unit) capsule (Vitamin D3) 75 mcg PO HS Supplement 08/21/23
escitalopram oxalate 10 mg tablet 20 mg PO QPM Mental Health/Anxiety 08/21/23
omeprazole 40 mg capsule,delayed release 40 mg PO DAILY gerd 08/21/23
sacubitril 24 mg-valsartan 26 mg tablet (Entresto) 1 tab PO BID Heart Failure 08/21/23
colesevelam 625 mg tablet 1,875 mg PO BID High Cholesterol 05/08/24
apixaban 2.5 mg tablet (Eliquis) 2.5 mg PO BID #5 tabs 05/10/24
nirmatrelvir 300 mg (150 mg x2)-ritonavir 100 mg tablet,dose pack (Paxlovid) 1 ea PO BID #30 ea 05/10/24
Review of Systems
-
Constitutional: Reports No Symptoms
EENT: Reports No Symptoms
Respiratory: Reports No Symptoms
Cardiac: Reports No Symptoms
Abdomen/GI: Reports No Symptoms
: Reports No Symptoms
Musculoskeletal: Reports No Symptoms
Skin: Reports No Symptoms
Neurological: Reports Other (right LE weakness)
Endocrine: Reports No Symptoms
Hematologic/Lymphatic: Reports No Symptoms
Psych: Reports No Symptoms
Physical Exam
Vital Signs
Vital Signs
Temp Pulse Resp BP Pulse Ox
98.5 F 73 18 118/54 98
02/07/25 13:51 02/07/25 14:05 02/07/25 16:00 02/07/25 13:51 02/07/25 13:51
Physical Exam
General: Well Developed, Well Nourished and No Apparent Distress
HEENT: NormoCephalic, Moist mucous membranes and Atraumatic
Respiratory: Clear
Cardiac: S1/S2 and Regular Rhythm; No Murmur or Rub
GI: Soft, Non Tender, Non Distended and Normal Bowel Sounds; No Organomegaly
Rectal: Deferred by Provider
Musculoskeletal: No Clubbing, No Cyanosis and No Edema
Skin: No Rash
Neuro: AO x 3 and Nonfocal/grossly intact
Psych: Calm
Laboratory Results
-
02/07/25 14:19
02/07/25 14:19
Laboratory Results
Total Bilirubin 0.6 mg/dl (0.2-1.3) 02/07/25 14:19
AST 20 U/L (14-36) 02/07/25 14:19
ALT 11 U/L (0-35) 02/07/25 14:19
Alkaline Phosphatase 59 U/L (38-126) 02/07/25 14:19
Troponin I < 0.012 ng/ml 02/07/25 14:19
Data Reviewed
-
Diagnostic Radiology: Report Reviewed by me
CT Scan: Report Reviewed by me
Lab Data: Labs Reviewed by me
Impression/Plan
-
# Ambulatory dysfunction secondary to right lower extremity pain
- Venous duplex negative for DVT
- Knee x-ray with no fracture or malalignment
-Hip x-ray without evidence of periprosthetic fracture or dislocation
- CT head with no acute intracranial abnormality. Finding of chronic pansinusitis
- PT/OT consulted
-tramadol added for pain
-orthostatic bid
#chronic CHF
-not in acute exacerbation
-strict I &O
-daily weight
-Lasix continued
-Entresto continued
#hxt of asthma
-nebs from home continued
#Chronic steroid use-for nasal polyposis
-prednisone continued
#Stroke with aphasia
-statin
#hypothyroidism
-levothyroxine continued
#DVT
-eliquis continued
#essential HTn/HLD
-coreg continued with hold parameter
-Welchol continued
#anxiety
-Citalopram continued
#GERD
-PPI continued
#CODE status
-DNR
[2025-02-07] MEDS: DILAUDID 0.5 MG IV (17:37)
--- NOTE | 2025-02-07 18:02 | W.PN.UPDATE ---
Update Note
Progress Note Update
I could not get any information from the patient as non verbal
Information gathered by chart review and speaking with the ER staff and daughter at bed side
This note serves as an addendum to the H&P by trackmobile operator BENSON
Tammy REDDY
HPI
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 Now unable
to ambulate due to the pain.
Reviewed VS:
Selected Entries
02/07/25
13:50 02/07/25
13:51
Temp 98.5 F
Pulse 76
Blood pressure 118/54 118/54
SaO2 97
Oxygen Mode of Delivery Room air
PE
General: Well Developed, Well Nourished, No Apparent Distress, Comfortable and Conversant (aphasix )
HEENT: and Anicteric
Respiratory: No Rales or Rhonchi
Cardiac: S1/S2 and Regular Rhythm
Breast: Deferred by me
GI: Soft, Non Tender and Non Distended
Skin: Warm
Neuro: Awake and Alert
Psych: Calm
02/07/25
14:19
WBC 9.0
Hgb 12.3
MCV 100.0 H
Plt Count 251
Chloride 108 H
BUN 22 H
Creatinine 0.6
eGFR > 60.00
Troponin I < 0.012
Rt Knee XR - total knee arthroplasty without evidence of prosthetic fracture or malalignment.
Rt Hip XR- Total hip arthroplasty without evidence of periprosthetic fracture or dislocation.
Rt Ivonne US- No sonographic evidence for RIGHT lower extremity deep venous thrombosis.
HCT - No acute intracranial abnormality noted. Mild senescent changes.
EKG
Atrial-sensed ventricular-paced rhythm
Biventricular pacemaker detected
ABNORMAL ECG
WHEN COMPARED WITH ECG OF 07-MAY-2024 23:57,
VENT. RATE HAS DECREASED BY 21 BPM
02/12/24 TTE
LVEF 5o-55
stage I diastolic dysfunction
ICD/pacemaker wire present in the right atrial cavity.
Trace mitral regurgitation.
Moderate . Peak/mean gradients across the aortic valve are 23/12 mmHg respectively. Using an LVOT diameter of 2.0 cm the aortic valve
Last hospitalist admission: DATE OF ADMISSION: 05/08/2024 - DATE OF DISCHARGE: 05/10/2024
PRIMARY DIAGNOSES:
1. COVID-19 infection.
2. Nonsustained ventricular tachycardia.
3. Nonischemic myocardial injury.
SECONDARY DIAGNOSES:
1. Chronic heart failure with recovered ejection fraction.
2. Chronic steroid use for nasal polyposis.
3. History of stroke with aphasia.
ASSESSMENT & PLAN
Non traumatic Rt Leg pain
Non focal weakness
NEG XR for acute pathology. NEG US for DVT
- PRN Opiod Analgesia
- fall precaution
- PT/OT
Relatively hypotensive
Essential HTN
- Carvedilol, Entresto and Frusemide with hold parameters
HX Chr systolic HF - recovered LVEF 50 -55
HX Dilated CM, CAD
HX [employer] BIV ICD implanted 2007 with last gen change 301
Hypothyroidism
- cont LT4
Aphasia
DVT Px: Eliquis
Code: Full
Obs MS
--- NOTE | 2025-02-07 20:00 | TRANSFER ---
pt arrived from ED via stretcher accompanied by ED staff. pt was a pullover from stretcher to bed. pt is nonverbal, but shows no nonverbal signs of pain upon transfer. call campa within reach, bed alarm placed, will continue to monitor.
[2025-02-07] MEDS: FLOVENT 110 MCG INHALER 2 PUFF INH (20:33)
[2025-02-07] MEDS: TYLENOL 650 MG PO (20:51)
[2025-02-07] MEDS: VITAMIN D3 (cholecalciferol) 25 MCG PO (20:58)
[2025-02-07] MEDS: COREG 3.125 MG PO (20:58)
[2025-02-07] MEDS: ELIQUIS 5 MG PO (20:59)
[2025-02-07] MEDS: LEXAPRO 20 MG PO (20:59)
[2025-02-07] MEDS: ENTRESTO 24 MG/26 MG 1 TAB PO (21:09)
[2025-02-07] MEDS: ULTRAM 100 MG PO (21:57)
[2025-02-08] MEDS: SYNTHROID 50 MCG PO (05:41)
[2025-02-08 06:00] VITALS: BMI 32.8
[2025-02-08] MEDS: FLOVENT 110 MCG INHALER INH (07:16)
[2025-02-08 07:55] VITALS: BP 138/63
[2025-02-08] MEDS: DELTASONE 10 MG PO (07:55)
[2025-02-08] MEDS: PROTONIX 40 MG PO (07:55)
[2025-02-08] MEDS: KCL 20 MEQ PO (07:55)
[2025-02-08] MEDS: ZYRTEC 10 MG PO (07:55)
[2025-02-08] MEDS: COREG 3.125 MG PO ×2 (07:55→20:11)
[2025-02-08] MEDS: ELIQUIS 5 MG PO (07:55)
[2025-02-08] MEDS: ENTRESTO 24 MG/26 MG 1 TAB PO ×2 (07:55→20:11)
[2025-02-08] MEDS: TYLENOL 650 MG PO ×2 (08:04→16:46)
[2025-02-08] MEDS: MORPHINE ORAL SOLUTION 5 MG PO (08:55)
--- NOTE | 2025-02-08 09:20 | W.PN.HOSP.TC ---
Today's Communication/Plan
-
see outlined plan
Assessment / Plan
Assessment / Plan
Assessment:
RLE pain (medial thigh/calf)
- suspect muscular etiology; CPK normal, not consistent with a myositis picture
- XR and DVT study negative
- optimal next study would be MRI, but family reports ICD/PPM is not MRI compatible (due to leads)
- will obtain CT RLE
- PT/OT - SNF vs home. Family agree with SNF.
- pain control: continue Tylenol. Would avoid narcs if able
Essential HTN
- continue BP meds
Chronic HFrEF
CAD
Hx of BIV ICD and PPM
Parox Afib
- continue cardiac meds
Hypothyroidism
- continue levothyroxine
Chronic primary progressive Aphasia
HX of COPD
- continue prednisone
DVT ppx: Eliquis
Code: DNR/DNI
Anticipated Discharge: 24 - 48 hours
Subjective/Interval History
-
Date of Service: February 08, 2025
patient nonverbal at baseline, communicates with thumbs up/down
reports r medial thigh/calf pain
daughter at bedside confirms to trauma
Objective Data
-
Vital Signs:
Vital Signs
Temp Pulse Resp BP Pulse Ox
97.9 F 72 20 138/63 96
02/08/25 07:55 02/08/25 07:55 02/08/25 07:55 02/08/25 07:55 02/08/25 07:55
I&O
02/07/25 02/08/25 02/09/25
06:59 06:59 06:59
Intake Total 240 / 240
Balance 240 / 240
Physical Exam
-
General: No Apparent Distress
HEENT: Normocephalic and Atraumatic
Respiratory: Negative Wheezes
Cardiac: Regular Rhythm and S1/S2
GI: Soft and Nontender
Genito-urinary: No Costovertebral Tender
Musculoskeletal: Other (tenderness to palpation R medial calf/thigh. No edema/erythema. No obvious trauma)
Neuro: AO x 3
Psych: Calm
Data Reviewed
-
Total Time Spent with Patient (in minutes): 41
Labs: Labs Reviewed by me
[2025-02-08 09:21] LABS: Creatine Phosphokinase 97 U/L (30-135); Magnesium 1.8 mg/dl (1.6-2.3); Phosphorus 3.7 mg/dl (2.5-4.5)
[2025-02-08 09:51] LABS: TSH Reflex To Free T4 1.42 uIU/ml (0.47-4.68)
[2025-02-08 09:55] VITALS: BP 119/64; PULSE 82
--- NOTE | 2025-02-08 10:07 | CM ---
CM met with pt and dtr bedside
Pt is non-verbal aphasic, AxO 3x and communicates with thumbs up/down
Pt resides with her dtr in a 2SH with ramp entrance, stairglide to 2nd floor where her primary area of living is located
Pt ambulates with a rollator independently throughout the home
Limited UE strength and dexterity- dtr assists with all ADLs and personal care
Pt utilizes a wheelchair or rollator while in the community- unable to self propel
Current with Palliative Care
PCP- Angela Hussein
Rx- [facility]
Dtr requesting SNF to be arranged on dc
PAC list provided
Referrals sent to [facility]. [facility] and [facility] is 1st choice
Pt will require [facility] auth
ROGERS verbally reviewed as pt is OBS
Copy provided
Discharge Disposition- SNF pending auth
[2025-02-08 10:16] VITALS: BP 119/64
[2025-02-08 13:05] VITALS: BP 103/61; BP 107/61; BP 116/70; PULSE 71; PULSE 80; PULSE 87
--- NOTE | 2025-02-08 13:51 | W.PN.UPDATE ---
Addendum entered and electronically signed by Sid Davies MD 02/08/25 14:26:
spoke to Vascular; CT-A ordered for contrast prep orders. d/w daughter who is agreeable
Addendum entered and electronically signed by Sid Davies MD 02/08/25 14:00:
vascular consult
Original Note:
Update Note
Progress Note Update
CT with hematoma. Unlikely myositis with normal CK. Hold Eliquis. Family updated
[2025-02-08 14:44] LABS: Urine Albumin 2+ (Neg - Trace); Urine Bilirubin 1+ (Negative); Urine Character Clear (Clear); Urine Color Yellow; Urine Glucose Negative (Negative); Urine Ketone Negative (Negative); Urine Leukocyte 2+ (Negative); Urine Nitrite Negative (Negative); Urine Occult Blood 1+ (Negative); Urine Specific Gravity 1.025 (<1.030); Urine Urobilinogen 1+ (Neg - 1+)
[2025-02-08] MEDS: SOLU-CORTEF 200 MG IV ×2 (14:48→18:50)
[2025-02-08 14:58] LABS: Urine Bacteria Moderate (Negative); Urine Mucus Few; Urine Red Blood Cell 0-2 /HPF (0-2); Urine Squamous Cell >30 /LPF (Few)
[2025-02-08 15:55] VITALS: BP 123/71
[2025-02-08] MEDS: BENADRYL 50 MG IV (18:50)
[2025-02-08] MEDS: FLOVENT 110 MCG INHALER 2 PUFF INH (20:12)
[2025-02-08] MEDS: VITAMIN D3 (cholecalciferol) 25 MCG PO (21:04)
[2025-02-08] MEDS: LEXAPRO 20 MG PO (21:04)
[2025-02-08 23:35] VITALS: BP 126/71
[2025-02-09] MEDS: SYNTHROID 50 MCG PO (05:18)
[2025-02-09 06:00] VITALS: BMI 32.1
[2025-02-09 06:18] LABS: Hematocrit 34.5 % (37.0-47.0); Hemoglobin 11.6 g/dL (12.0-16.0); Mean Corp Hgb Conc. 33.6 g/dL (33.0-37.0); Mean Corpuscular Hgb 32.9 pg (27.0-31.0); Mean Corpuscular Volume 97.7 fL (81.0-99.0); Platelet Count 242 10^3/uL (130-400); Red Blood Cell Count 3.53 10^6/uL (4.20-5.40); Red Cell Dist. Width 12.5 % (11.5-14.5); White Blood Cell Count 6.8 10^3/uL (4.8-10.8)
[2025-02-09 07:00] LABS: Blood Urea Nitrogen 14 mg/dl (7-17); Calcium 9.2 mg/dl (8.4-10.2); Carbon Dioxide 25 mmol/L (22-30); Chloride 109 mmol/L (98-107); Estimated Creatinine Clearance 68 ml/min; Glucose 131 mg/dl (70-99); Potassium 3.9 mmol/L (3.5-5.1); Sodium 139 mmol/L (135-145); eGFR > 60.00
[2025-02-09] MEDS: FLOVENT 110 MCG INHALER 2 PUFF INH ×2 (07:15→19:09)
[2025-02-09 07:30] VITALS: BP 127/64
--- NOTE | 2025-02-09 08:39 | W.PN.HOSP.TC ---
Today's Communication/Plan
-
Holding Eliquis
PT/OT
Tylenol for pain
Patient is known to have hx of falls/ balance problems/ blank stares/ sob ( morning and night time)
Assessment / Plan
Assessment / Plan
Physical Exam
General: Well Developed, Well Nourished and No Apparent Distress
HEENT: NormoCephalic, Moist mucous membranes and Atraumatic
Respiratory: Clear
Cardiac: S1/S2 and Regular Rhythm; No Murmur or Rub
GI: Soft, Non Tender, Non Distended and Normal Bowel Sounds; No Organomegaly
Rectal: NO rectal bleeding
Musculoskeletal: No Clubbing, No Cyanosis and No Edema, bruising left lower posterior thigh and knee, non tender
Skin: No Rash
Neuro: AO xto self and surroundings, aphasia, followed commands.
Psych: Calm
Assessment:
RLE hematoma exacerbated by use of Eliquis
(medial thigh/calf)
Known to have functional decline and balance issues, history of falls. Hematoma possible related to a fall although not documented in history.
CT confirmed hematoma with surrounding inflammation
- XR and DVT study negative
- CPK is normal
- Hold Eliquis for now
- PT/OT - SNF vs home. Family agree with SNF.
- pain control: continue Tylenol.
# Mild acute blood loss anemia
No hypotension or tachycardia
Essential HTN
- continue BP meds
Chronic HFrEF
CAD
Hx of BIV ICD and PPM
Parox Afib
ICD (implantable cardioverter-defibrillator)
Holding Eliquis due to hematoma
- continue cardiac meds
Hypothyroidism
- continue levothyroxine
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
Functional decline, balance problems, nonverbal but mentally intact, increased falls history, episodes of blank stare, incontinence.
HX of COPD
- continue prednisone
DVT ppx: Eliquis
Code: DNR/DNI
Total time spent to see the patient, examine the patient, review data and lab results, discuss treatment plan with patient and nursing staff around 55 minutes
Anticipated Discharge: Within 24 hours
Subjective/Interval History
-
Date of Service: February 09, 2025
She denies chest pain or abd pain
No fevers
Objective Data
-
Labs:
Laboratory Results
02/09/25
05:26
WBC 6.8
Hgb 11.6 L
Hct 34.5 L
Plt Count 242
Sodium 139
Potassium 3.9
Chloride 109 H
Carbon Dioxide 25
BUN 14
Creatinine 0.5 L
Glucose 131 H
Calcium 9.2
Vital Signs:
Vital Signs
Temp Pulse Resp BP Pulse Ox
98.2 F 71 16 126/71 96
02/08/25 23:35 02/09/25 07:18 02/09/25 07:18 02/08/25 23:35 02/09/25 07:18
I&O
02/08/25 02/09/25 02/10/25
06:59 06:59 06:59
Intake Total 240 / 240 960 / 960
Balance 240 / 240 960 / 960
[2025-02-09] MEDS: ZYRTEC 10 MG PO (08:50)
[2025-02-09] MEDS: KCL 20 MEQ PO (08:51)
[2025-02-09] MEDS: DELTASONE 10 MG PO (08:51)
[2025-02-09] MEDS: PROTONIX 40 MG PO (08:51)
[2025-02-09] MEDS: ULTRAM 100 MG PO (08:51)
[2025-02-09] MEDS: COREG 3.125 MG PO ×2 (08:51→19:54)
[2025-02-09] MEDS: ENTRESTO 24 MG/26 MG 1 TAB PO ×2 (08:51→19:54)
[2025-02-09] MEDS: LASIX 20 MG PO (08:52)
[2025-02-09 09:21] VITALS: BP 106/75; BP 130/79; BP 136/65; PULSE 106; PULSE 91; PULSE 99
--- NOTE | 2025-02-09 12:53 | PTCARENOTE ---
Patient with three episodes of diarrhea early interventionist. MD notified. Ordered stool specimen.
[2025-02-09 15:23] VITALS: BP 107/68
--- NOTE | 2025-02-09 16:03 | CM ---
PT OT completed updated evals sent to [facility].
Pt will need [facility] auth after SNF identified.
PLAN To Snf after located and auth obtained
[2025-02-09 16:04] VITALS: BP 86/66; BP 93/54; PULSE 114; O2SAT 96
[2025-02-09] MEDS: MORPHINE ORAL SOLUTION 5 MG PO ×2 (16:38→22:40)
[2025-02-09] MEDS: LEXAPRO 20 MG PO (19:55)
[2025-02-09] MEDS: VITAMIN D3 (cholecalciferol) 25 MCG PO (19:55)
[2025-02-09 23:06] VITALS: BP 102/59; BP 111/59; BP 114/68; PULSE 80; PULSE 90; PULSE 99
[2025-02-10] MEDS: SYNTHROID 50 MCG PO (05:18)
[2025-02-10 06:00] VITALS: BMI 32.3
[2025-02-10] MEDS: FLOVENT 110 MCG INHALER 2 PUFF INH ×2 (07:14→19:31)
[2025-02-10 07:25] VITALS: BP 112/56
--- NOTE | 2025-02-10 08:33 | W.PN.HOSP.TC ---
Today's Communication/Plan
-
Await urine culture
CBC
Repatha injection today
Assessment / Plan
Assessment / Plan
Physical Exam
General: Well Developed, Well Nourished and No Apparent Distress
HEENT: NormoCephalic, Moist mucous membranes and Atraumatic
Respiratory: Clear
Cardiac: S1/S2 and Regular Rhythm; No Murmur or Rub
GI: Soft, Non Tender, Non Distended and Normal Bowel Sounds; No Organomegaly
Rectal: NO rectal bleeding
Musculoskeletal: No Clubbing, No Cyanosis and No Edema, bruising left lower posterior thigh and knee, non tender
Skin: No Rash
Neuro: AO xto self and surroundings, aphasia, followed commands.
Psych: Calm
Assessment:
RLE hematoma exacerbated by use of Eliquis
(medial thigh/calf)
Known to have functional decline and balance issues, history of falls. Hematoma possible related to a fall although not documented in history.
CT confirmed hematoma with surrounding inflammation
- XR and DVT study negative
- CPK is normal
- Hold Eliquis for now
- PT/OT - SNF vs home. Family agree with SNF.
- pain control: continue Tylenol.
# reported loose stools by staff
Daughter said pt had diarrhea on/ off at home after a trip to [place]
Currently no GI symptoms, tolerating diet
Unable to send tests due to lack of specimen
# Mild acute blood loss anemia
No hypotension or tachycardia
# Essential HTN
- continue BP meds
Chronic HFrEF
CAD
Hx of BIV ICD and PPM
Parox Afib
ICD (implantable cardioverter-defibrillator)
Holding Eliquis due to hematoma
- continue cardiac meds
Hypothyroidism
- continue levothyroxine
#Hyperlipidemia
daughter requested to administer her 2 weekly Repatha
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
Functional decline, balance problems, nonverbal but mentally intact, increased falls history, episodes of blank stare, incontinence.
HX of COPD
- continue prednisone
DVT ppx: Eliquis
Code: DNR/DNI
Total time spent to see the patient, examine the patient, review data and lab results, discuss treatment plan with patient and nursing staff around 55 minutes
Anticipated Discharge: Within 24 hours
Subjective/Interval History
-
Date of Service: February 10, 2025
Pt denies pain
No fevers
No diarrhea
Objective Data
-
Vital Signs:
Vital Signs
Temp Pulse Resp BP Pulse Ox
97.9 F 76 16 111/59 96
02/09/25 23:06 02/10/25 07:17 02/10/25 07:17 02/09/25 23:06 02/10/25 07:17
I&O
02/09/25 02/10/25 02/11/25
06:59 06:59 06:59
Intake Total 960 / 960 1080 / 1080
Balance 960 / 960 1080 / 1080
[2025-02-10] MEDS: ENTRESTO 24 MG/26 MG 1 TAB PO ×2 (08:49→20:40)
[2025-02-10] MEDS: COREG 3.125 MG PO ×2 (08:49→20:40)
[2025-02-10] MEDS: KCL 20 MEQ PO (08:49)
[2025-02-10] MEDS: DELTASONE 10 MG PO (08:49)
[2025-02-10] MEDS: PROTONIX 40 MG PO (08:49)
[2025-02-10] MEDS: ZYRTEC 10 MG PO (08:49)
[2025-02-10 10:06] LABS: Hemoglobin 11.7 g/dL (12.0-16.0)
[2025-02-10 12:51] VITALS: BP 100/55; BP 110/62; BP 118/68; PULSE 82; PULSE 88; PULSE 92
[2025-02-10 15:17] VITALS: BP 104/55
[2025-02-10] MEDS: ULTRAM 100 MG PO (15:22)
[2025-02-10] MEDS: MORPHINE ORAL SOLUTION 5 MG PO ×2 (17:30→21:15)
[2025-02-10] MEDS: LEXAPRO 20 MG PO (20:40)
[2025-02-10] MEDS: VITAMIN D3 (cholecalciferol) 25 MCG PO (20:40)
[2025-02-10 23:34] VITALS: BP 98/45
[2025-02-11] VITALS (8 sets, daily range): BP systolic 104–132; BP diastolic 57–86; PULSE 70–84; BMI 32.7
[2025-02-11] MEDS: SYNTHROID 50 MCG PO (04:51)
[2025-02-11] MEDS: TYLENOL 650 MG PO (05:03)
[2025-02-11 06:41] LABS: Hematocrit 31.5 % (37.0-47.0); Hemoglobin 10.5 g/dL (12.0-16.0); Mean Corp Hgb Conc. 33.3 g/dL (33.0-37.0); Mean Corpuscular Hgb 32.7 pg (27.0-31.0); Mean Corpuscular Volume 98.1 fL (81.0-99.0); Mean Platelet Volume 10.3 fL (7.4-10.4); Platelet Count 208 10^3/uL (130-400); Red Blood Cell Count 3.21 10^6/uL (4.20-5.40); Red Cell Dist. Width 12.9 % (11.5-14.5); White Blood Cell Count 7.4 10^3/uL (4.8-10.8)
[2025-02-11 07:48] LABS: Blood Urea Nitrogen 23 mg/dl (7-17); Calcium 8.7 mg/dl (8.4-10.2); Carbon Dioxide 27 mmol/L (22-30); Chloride 106 mmol/L (98-107); Estimated Creatinine Clearance 59 ml/min; Glucose 86 mg/dl (70-99); Potassium 3.9 mmol/L (3.5-5.1); Sodium 138 mmol/L (135-145); eGFR > 60.00
[2025-02-11] MEDS: FLOVENT 110 MCG INHALER 2 PUFF INH ×2 (08:13→19:34)
[2025-02-11] MEDS: ENTRESTO 24 MG/26 MG 1 TAB PO ×2 (08:57→22:12)
[2025-02-11] MEDS: ZYRTEC 10 MG PO (08:57)
[2025-02-11] MEDS: DELTASONE 10 MG PO (08:57)
[2025-02-11] MEDS: PROTONIX 40 MG PO (08:57)
[2025-02-11] MEDS: KCL 20 MEQ PO (08:57)
[2025-02-11] MEDS: COREG 3.125 MG PO ×2 (08:57→22:12)
[2025-02-11] MEDS: LASIX 20 MG PO (08:58)
--- NOTE | 2025-02-11 10:04 | W.PN.HOSP.TC ---
Today's Communication/Plan
-
dc
Assessment / Plan
Assessment / Plan
Physical Exam
General: Well Developed, Well Nourished and No Apparent Distress
HEENT: NormoCephalic, Moist mucous membranes and Atraumatic
Respiratory: Clear
Cardiac: S1/S2 and Regular Rhythm; No Murmur or Rub
GI: Soft, Non Tender, Non Distended and Normal Bowel Sounds; No Organomegaly
Rectal: NO rectal bleeding
Musculoskeletal: No Clubbing, No Cyanosis and No Edema, bruising left lower posterior thigh and knee, non tender
Skin: No Rash
Neuro: AO xto self and surroundings, aphasia, followed commands.
Psych: Calm
Assessment:
RLE hematoma exacerbated by use of Eliquis
(medial thigh/calf)
Known to have functional decline and balance issues, history of falls. Hematoma possible related to a fall although not documented in history.
CT confirmed hematoma with surrounding inflammation
- XR and DVT study negative
- CPK is normal
- Hold Eliquis for now , resumed after 5 days 02/12
- PT/OT - SNF vs home. Family agree with SNF.
- pain control: continue Tylenol.
# reported loose stools by staff
Daughter said pt had diarrhea on/ off at home after a trip to [place]
Currently no GI symptoms, tolerating diet
Unable to send tests due to lack of specimen
# Mild acute blood loss anemia
No hypotension or tachycardia
# Essential HTN
- continue BP meds
Chronic HFrEF
CAD
Hx of BIV ICD and PPM
Parox Afib
ICD (implantable cardioverter-defibrillator)
Holding Eliquis due to hematoma
- continue cardiac meds
Hypothyroidism
- continue levothyroxine
#Hyperlipidemia
daughter requested to administer her 2 weekly Repatha
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
Functional decline, balance problems, nonverbal but mentally intact, increased falls history, episodes of blank stare, incontinence.
HX of COPD
- continue prednisone
DVT ppx: Eliquis
Code: DNR/DNI
Total discharge time spent to see the patient, examine the patient, review data and lab results, discuss discharge plan with patient and nursing staff around 67 minutes
Anticipated Discharge: Today
Subjective/Interval History
-
Date of Service: February 11, 2025
No fever
No hypotension
Objective Data
-
Labs:
Laboratory Results
02/11/25
05:43
WBC 7.4
Hgb 10.5 L
Hct 31.5 L
Plt Count 208
Sodium 138
Potassium 3.9
Chloride 106
Carbon Dioxide 27
BUN 23 H
Creatinine 0.7
Glucose 86
Calcium 8.7
Vital Signs:
Vital Signs
Temp Pulse Resp BP Pulse Ox
98.8 F 75 18 123/73 96
02/11/25 08:16 02/11/25 08:57 02/11/25 08:16 02/11/25 08:57 02/11/25 08:16
I&O
02/10/25 02/11/25 02/12/25
06:59 06:59 06:59
Intake Total 1080 / 1080 720 / 720
Balance 1080 / 1080 720 / 720
--- NOTE | 2025-02-11 10:14 | CM ---
Addendum entered by Sarah Wilson RN 02/11/25 16:24:
Auth obtained Spoke with [facility] Ref Number [id number] from 02/11/25 to 02/13/25. NRD contact Kira Smith fax [phone] . LM and TT with [facility] . No response. Medical nec form completed sent to floor. Will wait
for [facility] acceptance. May be tomorrow.
Addendum entered by Sarah Wilson RN 02/11/25 13:51:
PT OT evals completed indicated SNf need.
Called [phone] spoke with [facility] Ref # [id number] Clinical faxed to [phone].
Awaiting auth for [facility] .
Original Note:
MD entered order for discharge.
Spoke with with [facility] bed is available, No bed [facility] does not have a bed .
Spoke with [facility] [phone] She consented to [facility] for rehab.
[facility] said she has bed. Pt needs auth. PT OT notified of PT OT evals for auth needed.
NPI provided.
[facility]
report [phone]
fax [phone]
PLAN To [facility] after auth obtained
--- NOTE | 2025-02-11 13:57 | W.DCSUMMARY ---
Discharge Summary
Discharge Data
Date of Admission: 02/07/25
Date of Discharge: 02/12/25
-
Pending Results: No
Hospital Course
84 years old female presented to the hospital with right lower extremity pain and was found to have hematoma. Eliquis was held. No history of specific injury. Patient was unable to provide history due to advanced dementia and aphasia. Scan of the
right lower extremity with contrast showed no evidence of active extravasation with a stable appearance of the heterogenous enlargement of the distal sartorius muscle with surrounding stranding representing intramuscular hematoma with surrounding
soft tissue contusion. CPK was normal. Hemoglobin remained stable. Leg pain was treated with Tylenol. She had Javier wrap around the right lower extremities. No worsening hematoma or swelling. Urine was positive for urine were positive for white
blood cell and bacteria. Urine culture did not show any growth. Eliquis was resumed in 5 days. She remained hemodynamically stable was discharged to nursing home facility in a stable condition.
Discharge Plan
-
Patient Disposition: Skilled Nursing/SNF
Discharge Diagnosis/Procedures: RLE hematoma exacerbated by use of Eliquis, resume Eliquis 02/12
Diet: As tolerated
Referrals:
Angela Hussein CRNP [Family Provider] - in one to two weeks
Prescriptions:
Continued
furosemide 40 MG tablet
20 mg PO MOWEFR
cetirizine 10 MG tablet
10 mg PO DAILY
potassium chloride [Klor-Con M20] 20 MEQ tablet,ER particles/crystals
20 meq PO DAILY
colesevelam [WelChol] 625 MG tablet
1,250 mg PO BID
levothyroxine 50 MCG tablet
50 mcg PO DAILY AT 0700
acetaminophen [Tylenol Extra Strength] 500 MG tablet
1,000 mg PO Q6HPRN PRN (Reason: mild pain)
prednisone 10 MG tablet
10 mg PO DAILY Qty: 50 0RF
omeprazole 40 mg capsule,delayed release(DR/EC)
40 mg PO DAILY
cholecalciferol (vitamin D3) [Vitamin D3] 25 mcg (1,000 unit) capsule
25 mcg PO HS
Entresto 24-26 mg tablet
1 tab PO BID
albuterol sulfate 2.5 mg /3 mL (0.083 %) Solution For Nebulization
2.5 mg INHALATION R Q6HPRN PRN (Reason: sob)
morphine concentrate 100 mg/5 mL (20 mg/mL) Solution
5 mg PO Q4HPRN PRN (Reason: severe pain/sob)
carvedilol 3.125 mg Tablet
3.125 mg PO BID
escitalopram oxalate 20 mg Tablet
20 mg PO HS
Repatha SureClick 140 mg/mL Pen Injector
140 mg SC Q2W
Qvar RediHaler 80 mcg/actuation Hfa Aerosol Breath Activated
2 inh INHALATION R BID
Held
apixaban 5 mg Tablet
5 mg PO BID
Hold Instructions: Resume on 05/13/24. resume 5mg starting 7/16 am
Discontinued
fluticasone propionate 1 SPRAY spray,suspension
2 spray intranasal DAILY
Discharge Orders:
Discharge Patient (As Directed); Ordered 02/11/25
Ordered By: Geena Villegas
Discharge Date and Time
Discharge Date/Time: 02/12/25 13:24
Print Language: BERMUDIAN
[2025-02-11] MEDS: LEXAPRO 20 MG PO (22:12)
[2025-02-11] MEDS: VITAMIN D3 (cholecalciferol) 25 MCG PO (22:12)
[2025-02-11] MEDS: ULTRAM 100 MG PO (22:13)
[2025-02-12] MEDS: SYNTHROID 50 MCG PO (05:05)
[2025-02-12 05:45] VITALS: BMI 31.9
[2025-02-12 06:39] LABS: Blood Urea Nitrogen 17 mg/dl (7-17); Carbon Dioxide 30 mmol/L (22-30); Chloride 105 mmol/L (98-107); Estimated Creatinine Clearance 68 ml/min; Glucose 80 mg/dl (70-99); Potassium 3.8 mmol/L (3.5-5.1); Sodium 140 mmol/L (135-145); eGFR > 60.00
[2025-02-12 06:44] LABS: Hematocrit 34.5 % (37.0-47.0); Hemoglobin 11.1 g/dL (12.0-16.0); Mean Corp Hgb Conc. 32.2 g/dL (33.0-37.0); Mean Corpuscular Hgb 32.2 pg (27.0-31.0); Mean Platelet Volume 9.9 fL (7.4-10.4); Platelet Count 253 10^3/uL (130-400); Red Blood Cell Count 3.45 10^6/uL (4.20-5.40); Red Cell Dist. Width 12.8 % (11.5-14.5)
[2025-02-12 07:25] VITALS: BP 113/74
[2025-02-12] MEDS: FLOVENT 110 MCG INHALER 2 PUFF INH (07:29)
[2025-02-12] MEDS: DELTASONE 10 MG PO (08:37)
[2025-02-12] MEDS: PROTONIX 40 MG PO (08:37)
[2025-02-12] MEDS: ZYRTEC 10 MG PO (08:37)
[2025-02-12] MEDS: COREG 3.125 MG PO (08:37)
[2025-02-12] MEDS: ELIQUIS 5 MG PO (08:37)
[2025-02-12] MEDS: ENTRESTO 24 MG/26 MG 1 TAB PO (08:37)
[2025-02-12] MEDS: KCL 20 MEQ PO (08:38)
[2025-02-12] MEDS: MORPHINE ORAL SOLUTION 5 MG PO (08:58)
--- NOTE | 2025-02-12 09:19 | CM ---
Md entered order for discharge
Auth obtained Spoke with [facility] Ref Number [id number] from 02/11/25 to 02/13/25.
NRD contact Kira Smith fax [phone] .[facility] aware.
Medical nec form completed ambulance set up 1 pm today .
Spoke with Paxton amador [phone] she is in agreement with dc to [facility] .
Remains under observation.
[facility]
report [phone]
fax [phone]
PLAN To [facility]
--- NOTE | 2025-02-12 09:44 | W.PN.HOSP.TC ---
Today's Communication/Plan
-
dc
Assessment / Plan
Assessment / Plan
Physical Exam
General: Well Developed, Well Nourished and No Apparent Distress
HEENT: NormoCephalic, Moist mucous membranes and Atraumatic
Respiratory: Clear
Cardiac: S1/S2 and Regular Rhythm; No Murmur or Rub
GI: Soft, Non Tender, Non Distended and Normal Bowel Sounds; No Organomegaly
Rectal: NO rectal bleeding
Musculoskeletal: No Clubbing, No Cyanosis and No Edema, bruising left lower posterior thigh and knee, non tender
Skin: No Rash
Neuro: AO xto self and surroundings, aphasia, followed commands.
Psych: Calm
Assessment:
RLE hematoma exacerbated by use of Eliquis
(medial thigh/calf)
Known to have functional decline and balance issues, history of falls. Hematoma possible related to a fall although not documented in history.
CT confirmed hematoma with surrounding inflammation
- XR and DVT study negative
- CPK is normal
- Hold Eliquis for now , resumed after 5 days 02/12
- PT/OT - SNF vs home. Family agree with SNF.
- pain control: continue Tylenol.
# reported loose stools by staff
Daughter said pt had diarrhea on/ off at home after a trip to [place]
Currently no GI symptoms, tolerating diet
Unable to send tests due to lack of specimen
# Mild acute blood loss anemia
No hypotension or tachycardia
# Essential HTN
- continue BP meds
Chronic HFrEF
CAD
Hx of BIV ICD and PPM
Parox Afib
ICD (implantable cardioverter-defibrillator)
Holding Eliquis due to hematoma
- continue cardiac meds
Hypothyroidism
- continue levothyroxine
#Hyperlipidemia
daughter requested to administer her 2 weekly Repatha
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
Functional decline, balance problems, nonverbal but mentally intact, increased falls history, episodes of blank stare, incontinence.
HX of COPD
- continue prednisone
DVT ppx: Eliquis
Code: DNR/DNI
Total discharge time spent to see the patient, examine the patient, review data and lab results, discuss discharge plan with patient and nursing staff around 67 minutes
Anticipated Discharge: Today
Subjective/Interval History
-
Date of Service: February 12, 2025
Should pain
d/w daughter , wants to give oral morphine
Objective Data
-
Labs:
Laboratory Results
02/12/25
05:27
WBC 7.0
Hgb 11.1 L
Hct 34.5 L
Plt Count 253 D
Sodium 140
Potassium 3.8
Chloride 105
Carbon Dioxide 30
BUN 17
Creatinine 0.6
Glucose 80
Calcium 9.0
Vital Signs:
Vital Signs
Temp Pulse Resp BP Pulse Ox
98.6 F 84 16 113/74 98
02/12/25 07:25 02/12/25 08:37 02/12/25 07:31 02/12/25 08:37 02/12/25 07:31
I&O
02/11/25 02/12/25 02/13/25
06:59 06:59 06:59
Intake Total 720 / 720 420 / 420
Balance 720 / 720 420 / 420
[2025-02-12 11:48] VITALS: BP 109/68
== END 2025-02-12 13:24 ==
LOC: 4 EAST ACU 18:18
PROVIDERS: Internal Medicine; Physician Assistant; ADMITTING PHYSICIAN Internal Medicine; ATTENDING PHYSICIAN Internal Medicine; EMERGENCY PHYSICIAN Student in an Organized Health Care Education/Training Program; FAMILY PHYSICIAN Nurse Practitioner Adult Health
DX: D68.32 Hemorrhagic disorder due to extrinsic circulating anticoagulants (principal); R42 Dizziness and giddiness; Z87.891 Personal history of nicotine dependence; S80.11XA Contusion of right lower leg, initial encounter; R26.2 Difficulty in walking, not elsewhere classified; I11.0 Hypertensive heart disease with heart failure; I50.42 Chronic combined systolic (congestive) and diastolic (congestive) heart failure; Z79.899 Other long term (current) drug therapy; Z79.52 Long term (current) use of systemic steroids; J33.9 Nasal polyp, unspecified; E03.9 Hypothyroidism, unspecified; Z86.718 Personal history of other venous thrombosis and embolism; Z79.01 Long term (current) use of anticoagulants; F02.84 Dementia in other diseases classified elsewhere, unspecified severity, with anxiety; K21.9 Gastro-esophageal reflux disease without esophagitis; Z66 Do not resuscitate; U07.1 COVID-19; I47.20 Ventricular tachycardia, unspecified; I5A Non-ischemic myocardial injury (non-traumatic); I69.320 Aphasia following cerebral infarction; I95.9 Hypotension, unspecified; M79.661 Pain in right lower leg; I48.0 Paroxysmal atrial fibrillation; D62 Acute posthemorrhagic anemia; E78.5 Hyperlipidemia, unspecified
CPT/HCPCS: 70450; 73502; 73564; 73700; 73706; 80048; 80053; 81003; 81015; 82550; 83735; 84100; 84443; 84484; 85018; 85025; 85027; 87086; 93005; 93971; 94640; 96374; 97116; 97163; 97167; 97530; 97535; 99285; G0378; Q9967

== ENCOUNTER → 2025-02-16 12:14 | Outpatient (REF) | payer OTHER, MEDICARE, SELFPAY ==
[2025-02-16 12:56] LABS: % Eosinophils 3.7 % (0-6); % Immature Granulocytes 0.5 % (0-0.5); % Lymphocytes 38.9 % (20.5-51.1); % Monocytes 13.5 % (1.7-9.3); % Neutrophils 42.4 % (42.2-75.2); Absolute Basophils 0.1 10^3/uL (0-0.2); Absolute Eosinophils 0.2 10^3/uL (0-0.7); Absolute Lymphocytes 2.3 10^3/uL (1.2-3.4); Absolute Monocytes 0.8 10^3/uL (0.1-0.6); Absolute Neutrophils 2.5 10^3/uL (1.4-6.5); Hematocrit 32.3 % (37.0-47.0); Hemoglobin 10.5 g/dL (12.0-16.0); Mean Corp Hgb Conc. 32.5 g/dL (33.0-37.0); Mean Corpuscular Volume 101.6 fL (81.0-99.0); Mean Platelet Volume 9.9 fL (7.4-10.4); Nucleated Red Blood Cells % 0 %; Platelet Count 294 10^3/uL (130-400); Red Blood Cell Count 3.18 10^6/uL (4.20-5.40); Red Cell Dist. Width 12.8 % (11.5-14.5); White Blood Cell Count 5.9 10^3/uL (4.8-10.8)
[2025-02-16 13:07] LABS: Blood Urea Nitrogen 16 mg/dl (7-17); Calcium 8.7 mg/dl (8.4-10.2); Carbon Dioxide 27 mmol/L (22-30); Chloride 107 mmol/L (98-107); Glucose 81 mg/dl (70-99); Potassium 3.9 mmol/L (3.5-5.1); Sodium 139 mmol/L (135-145); eGFR > 60.00
== END ==
LOC: OLABP 12:14
PROVIDERS: ATTENDING PHYSICIAN Family Medicine
DX: M62.59 Muscle wasting and atrophy, not elsewhere classified, multiple sites (principal); G31.01 Pick's disease; I69.320 Aphasia following cerebral infarction; I50.30 Unspecified diastolic (congestive) heart failure; E03.9 Hypothyroidism, unspecified; I10 Essential (primary) hypertension; I25.10 Atherosclerotic heart disease of native coronary artery without angina pectoris
CPT/HCPCS: 36415; 80048; 85025

== ENCOUNTER → 2025-02-19 11:58 | Outpatient (REF) | payer OTHER, MEDICARE, SELFPAY ==
[2025-02-19 12:44] LABS: % Basophils 0.9 % (0-2); % Eosinophils 3.1 % (0-6); % Immature Granulocytes 0.5 % (0-0.5); % Lymphocytes 34.6 % (20.5-51.1); % Monocytes 12.2 % (1.7-9.3); % Neutrophils 48.7 % (42.2-75.2); Absolute Basophils 0.1 10^3/uL (0-0.2); Absolute Eosinophils 0.2 10^3/uL (0-0.7); Absolute Lymphocytes 2.2 10^3/uL (1.2-3.4); Absolute Monocytes 0.8 10^3/uL (0.1-0.6); Absolute Neutrophils 3.2 10^3/uL (1.4-6.5); Hematocrit 34.8 % (37.0-47.0); Hemoglobin 11.2 g/dL (12.0-16.0); Mean Corp Hgb Conc. 32.2 g/dL (33.0-37.0); Mean Corpuscular Hgb 32.7 pg (27.0-31.0); Mean Corpuscular Volume 101.5 fL (81.0-99.0); Mean Platelet Volume 9.9 fL (7.4-10.4); Nucleated Red Blood Cells % 0 %; Platelet Count 290 10^3/uL (130-400); Red Blood Cell Count 3.43 10^6/uL (4.20-5.40); White Blood Cell Count 6.5 10^3/uL (4.8-10.8)
== END ==
LOC: OLABP 11:58
PROVIDERS: ATTENDING PHYSICIAN Family Medicine
DX: M62.59 Muscle wasting and atrophy, not elsewhere classified, multiple sites (principal); G31.01 Pick's disease; I69.320 Aphasia following cerebral infarction; I50.30 Unspecified diastolic (congestive) heart failure; E03.9 Hypothyroidism, unspecified; I10 Essential (primary) hypertension; I25.10 Atherosclerotic heart disease of native coronary artery without angina pectoris; I35.0 Nonrheumatic aortic (valve) stenosis; I48.0 Paroxysmal atrial fibrillation; J44.9 Chronic obstructive pulmonary disease, unspecified; F01.50 Vascular dementia, unspecified severity, without behavioral disturbance, psychotic disturbance, mood disturbance, and anxiety
CPT/HCPCS: 36415; 85025

== ENCOUNTER 2025-02-27 06:03 | Inpatient (IN) | payer MEDICARE, SELFPAY ==
[2025-02-27] VITALS (12 sets, daily range): BP systolic 60–116; BP diastolic 38–69; BMI 33.7
[2025-02-27] MEDS: ZOFRAN 4 MG IV (01:27)
[2025-02-27] MEDS: NSS 500 IV ×3 (02:14→08:41)
--- NOTE | 2025-02-27 02:29 | ED.GENMED ---
History of Present Illness
General
Chief Complaint: Fall
Source: patient
Exam Limitations: none
Time Seen by Provider: 02/27/25 01:31
Nursing documentation reviewed up to this point in time: agreed with
History of Present Illness
History of Present Illness:
pt is a 84 y/o F with h/o CHF, defibrillator, pacer,
unclear cause for aphasia
here for a slide out of her wheelchair to the ground on her buttocks witnessed by daughter
pt just got home from short term rehab
she had had a bruise to her L thigh and had difficulty walking
she uses a walker/rollator at baseline and lives with alex.r she makes her needs known by giving thumbs up/down motions becuase she doesn't speak
she comprehends, but is hard of hearing
today she seemed off, getachew said she had episode of diarrhea and had incontinence of stool this morning
then all day didn't really eat well and had 1 vomiti episode
then while here she vomited as well
daughter says pt has a headache, because she is pointing at her head
but knows she did not have head strike
is on eliquis
after vomiting an dzofran, she feels better
no abdominal pain
her only issue is her R mid humerus, severe pain there and limited rom
daughter saw that her R shoulder hyperextended behind her as she fell
no numbness that we know of
no distal pain
takes morphine daily
Past History
Past History
ED Past Medical History: Asthma, CHF, COPD, HTN, Hypothyroidism and Other (Aphasia, Bronchitis)
ED Past Surgical History: Cardiac (Pacemaker/ Defib), Cholecystectomy, Gynecological (Tubal, ), Orthopedic (Right hip replacement, Richard knee replacement, ) and Other (cataracts)
Social History
Tobacco: Former smoker
Alcohol: None
Personal:
Living: with family
Review of Systems
Review of Systems
Allergies reviewed?: Yes
All Other Systems: Not applicable
Phy Exam
Physical Exam
Physical Exam:
GENERAL: Alert , in no apparent distress, mute; does not speak
HEAD: NCAT
NECK: no midline tenderness, active ROM intact, no paraspinal muscle tenderness;
EYE: pupils equal and reactive, EOMs intact.
ENT: o/p clr, mmm. no hemotympanum
CARDIAC: Regular rate and rhythm, no edema
LUNGS: Clear breath sounds bilaterally, no acute respiratory distress, no wheezes/rales/rhonchi
ABDOMEN: Soft, without focal tenderness, no r/g, no cvat
NEUROLOGICAL: Alert and oriented, no focal neuro deficits, CN intact, 5/5 strength, sensation intact
SKIN: Warm and dry, resolving bruising L posterior thigh
bruising R volar wrist
early bruising to R upper arm
MUSCULOSKELETAL: R upper arm deformity mid humerus shaft with tenderness, ecchymosis; compartment does not seem tense
the forearm is not tense
no tenting of skin
bruising volar surface of the wrist; pain with wrsit movement but no wrist drop
normal engineer third assistant strength
PSYCH: pt is aphasic, follows commands;
Course
Orders/Labs/Results
Orders:
Orders
02/27/25 01:24
CT Head W/o Iv Contrast Urgent
Comment:
Reason For Exam: fall on eliquis
Cervical Spine wo Contrast CT [CT Cervical Spine W/o Iv Contr] Urgent
Comment:
Reason For Exam: fall on eliquis
02/27/25 01:25
Ondansetron Injectable [Zofran] 4 mg .ROUTE .[facility]
02/27/25 01:26
Ondansetron Injectable [Zofran] 4 mg IV NOW STA
02/27/25 01:39
0.9% Sodium Chloride 500 ml [Nss] 500 ml IV BOLUS
02/27/25 01:40
Electrocardiogram (*1) Urgent
Reason for Study: Fatigue / Weakness
EKG- Treatment ONCE
02/27/25 01:56
Humerus, Right 2 Views [CR Humerus - Right Min 2 View*] Urgent
Comment:
Reason For Exam: right arm pain
02/27/25 02:21
Complete Blood Count/With Diff Urgent
Comprehensive Metabolic Panel Urgent
Lipase Urgent
02/27/25 02:39
Morphine Sulfate 2 mg IV NOW STA
02/27/25 03:28
Urinalysis Reflex To Culture Urgent
STOOL [C difficile Antigen & Toxins] Urgent
LURDES Source: Feces/Stool
Specimen Description:
Date Specimen was Collected: 02/27/25
Time Specimen was Collected: 05:07
Stool Culture Urgent
LURDES Source: Feces/Stool
Specimen Description:
Date Specimen was Collected: 02/27/25
Time Specimen was Collected: 05:07
Acetaminophen [Tylenol] 650 mg PO NOW STA
CR Chest - 2 Views Urgent
Comment:
Reason For Exam: fever, vmiting, h/o dysphagia
CR Wrist - Right Min 3 Views Urgent
Comment:
Reason For Exam: right wrist bruising
02/27/25 03:36
CT Abd/pel Without Iv Or Oral Urgent
Comment:
Reason For Exam: vomiting, diarrhea, fever
02/27/25 04:45
COVID-19 Antigen Urgent
Source: Nasal Swab
Lactic Acid Urgent
Influenza A+B Rapid Molecular Urgent
LURDES Source: Nasal Swab
Specimen Description:
02/27/25 05:44
Admit/Transfer Patient As Directed
Co-Sign Provider:
Level of Care: Inpatient admission
Assign to:: Telemetry
Physician / Group: Sterling
Diagnosis: RUE Fracture, Gastroenteritis
Reason for Telemetry: Arrhythmia
Date to Stop Telemetry: 03/02/25
Time to Stop Telemetry: 11:00
Reason for Hospitalization: RUE Fracture, Gastroenteritis
Expected length of stay greater than two midnights?: Yes
ELOS- Estimated Length of Stay in days: 4
I certify the patient meets the requirements for IP care: Yes
PRN Pain Medication Management As Directed
May give lesser potent ordered pain med per pt: Yes
preference::
Protocol:: Medication orders for pain may be administered in a
manner that supports deferring to patient preference
when the pt is:
- Requesting an ordered lesser potent pain medication.
Least to most potent pain medications are defined
as: acetaminophen < NSAID < tramadol < opioids
(morphine, oxycodone, hydromorphone).
- Requesting a lesser dose of the same medication IF
ORDERED.
- Requesting a less intrusive route of administration
if both routes are prescribed by the provider (PO <
IV).
02/27/25 05:45
Code Status As Directed
Resuscitation Status: Do not resuscitate
Reached after discussion with pt or family/Healthcare POA: Yes
DNR Bracelet Application ONCE
02/27/25 05:55
0.9% Sodium Chloride 500 ml [Nss] 500 ml IV BOLUS
03/02/25 11:00
DC Protocol for Telemetry ONCE
Abnormal Lab Results
02/27/25
02:21
RBC 3.30 L 10^6/uL
(4.20-5.40)
Hgb 11.0 L g/dL
(12.0-16.0)
Hct 33.9 L %
(37.0-47.0)
MCV 102.7 H fL
(81.0-99.0)
MCH 33.3 H pg
(27.0-31.0)
MCHC 32.4 L g/dL
(33.0-37.0)
Abs Immat Gran (auto) 0.1 H 10^3/uL
(0-0.05)
Absolute Neuts (auto) 7.9 H 10^3/uL
(1.4-6.5)
Absolute Lymphs (auto) 0.7 L 10^3/uL
(1.2-3.4)
Absolute Monos (auto) 0.8 H 10^3/uL
(0.1-0.6)
Immature Gran % 0.7 H %
(0-0.5)
Neutrophils % 82.3 H %
(42.2-75.2)
Lymphocytes % 7.3 L %
(20.5-51.1)
Chloride 109 H mmol/L
(98-107)
BUN 24 H mg/dl
(7-17)
Glucose 126 H mg/dl
(70-99)
Total Protein 5.8 L g/dl
(6.3-8.2)
Albumin 3.2 L g/dl
(3.5-5.0)
02/27/25 02:21
02/27/25 02:21
Vital Signs
Temp: 38.3 C
Initial and Last Documented VS:
Initial Vital Signs
Temp Pulse Resp BP Pulse Ox
37.0 C 85 18 102/38 96
02/27/25 00:34 02/27/25 00:34 02/27/25 00:34 02/27/25 00:34 02/27/25 00:34
Last Documented Vital Signs
Temp Pulse Resp BP Pulse Ox
38.3 C H 101 20 94/69 97
02/27/25 03:34 02/27/25 05:15 02/27/25 05:15 02/27/25 05:04 02/27/25 00:34
Procedures
Splinting/Sling Placement
Right Upper Arm:
Procedure completed by: jessica copeland
Pre-splint extermity exam: neurovascular intact
Type of splint: sugar-tong (COAPTATION SPLINT)
Splint material: fiberglass
Splint checked by provider?: Yes
Normal distal neurovascular exam?: Yes
MDM/Problems Addressed
Differential Diagnosis Includes:
gastroenteritis, c diff, pneumonia, flu, covid, uti; fall, fracture humerus, fracture wrist;
MDM/Problems Addressed:
84 y/o F
just got discharged from [facility] yesterday
diarrhea and vomit x 1 each at home
lack of appetite
legs just 'gave out' when transferring and pt fell with R arm extended behind her
has pain in the R upper arm
already off balance with her chronic amb dysfunction and recent hematoma L thigh a few weeks ago requiring rehab
pt came home yesterday
seemed ok
but here pt is weak, developed fever to 101 and significant diarrhea here, large volume, and a few episodes vomiting
pt does have a displaced humerus shaft fx as well as distal radius fracture
small skin tear R ulnar wrist
irrigated and dressed and splintedwith velcro splint
copatation splin placed on shoulder
pt's ct reviewed, no obvious ventral hernia/obstrucion on my exam
otherwise no findings
admit
likely gastroenteritis, eval for c diff pending
ivf
ortho
*Critical Care Note
Total Time (30-74mins, 75-104mins- exclusive of procedures): Not Applicable
ED Attending Note
-
Portions of this chart may have been created with voice recognition software.� Occasional wrong word or��sound alike� substitutions may have occurred due to the inherent limitations of voice recognition software.
Discharge Plan
Departure
Patient Disposition: Admit
Date of Disposition: 02/27/25
Time of Disposition: 04:04
Admit to: Med/Surg
Presentation/result/management discussed w/ accepting MD/DO: Hospitalist
Condition: Fair
Covid-19: Not Applicable
Discharge Problem:
Fever, Gastroenteritis, Closed right humeral fracture, Fracture of right wrist
Prescriptions:
No Action
furosemide 40 MG tablet
20 mg PO MOWEFR
cetirizine 10 MG tablet
10 mg PO DAILY
potassium chloride [Klor-Con M20] 20 MEQ tablet,ER particles/crystals
20 meq PO DAILY
colesevelam [WelChol] 625 MG tablet
1,250 mg PO BID
levothyroxine 50 MCG tablet
50 mcg PO DAILY AT 0700
acetaminophen [Tylenol Extra Strength] 500 MG tablet
1,000 mg PO Q6HPRN PRN (Reason: mild pain)
prednisone 10 MG tablet
10 mg PO DAILY Qty: 50 0RF
omeprazole 40 mg capsule,delayed release(DR/EC)
40 mg PO DAILY
cholecalciferol (vitamin D3) [Vitamin D3] 25 mcg (1,000 unit) capsule
25 mcg PO HS
apixaban 5 mg Tablet
5 mg PO BID
Entresto 24-26 mg tablet
1 tab PO BID
albuterol sulfate 2.5 mg /3 mL (0.083 %) Solution For Nebulization
2.5 mg INHALATION R Q6HPRN PRN (Reason: sob)
morphine concentrate 100 mg/5 mL (20 mg/mL) Solution
5 mg PO Q4HPRN PRN (Reason: severe pain/sob)
carvedilol 3.125 mg Tablet
3.125 mg PO BID
escitalopram oxalate 20 mg Tablet
20 mg PO HS
Repatha SureClick 140 mg/mL Pen Injector
140 mg SC Q2W
Qvar RediHaler 80 mcg/actuation Hfa Aerosol Breath Activated
2 inh INHALATION R BID
Referrals:
Angela Hussein CRNP [Family Provider] -
Interventions
Interventions:
*Risk Screen - Suicide Last Done: 02/27/25 00:34
*General Assessment Last Done: 02/27/25 00:34
*Neglect/Abuse Screening Last Done: 02/27/25 00:34
*ED- Fall Risk Assessment Last Done: 02/27/25 01:35
ED-Musculoskeletal Assessment Last Done: 02/27/25 00:46
ED- Neurological Assessment Last Done: 02/27/25 00:46
ED-Skin Assessment Last Done: 02/27/25 00:46
Discharge Date and Time
Print Language: MONGOLIAN
[2025-02-27 02:41] LABS: % Basophils 0.3 % (0-2); % Eosinophils 1.5 % (0-6); % Immature Granulocytes 0.7 % (0-0.5); % Lymphocytes 7.3 % (20.5-51.1); % Monocytes 7.9 % (1.7-9.3); % Neutrophils 82.3 % (42.2-75.2); Absolute Eosinophils 0.1 10^3/uL (0-0.7); Absolute Immature Granulocytes 0.1 10^3/uL (0-0.05); Absolute Lymphocytes 0.7 10^3/uL (1.2-3.4); Absolute Monocytes 0.8 10^3/uL (0.1-0.6); Absolute Neutrophils 7.9 10^3/uL (1.4-6.5); Hematocrit 33.9 % (37.0-47.0); Mean Corp Hgb Conc. 32.4 g/dL (33.0-37.0); Mean Corpuscular Hgb 33.3 pg (27.0-31.0); Mean Corpuscular Volume 102.7 fL (81.0-99.0); Mean Platelet Volume 9.6 fL (7.4-10.4); Nucleated Red Blood Cells % 0 %; Platelet Count 211 10^3/uL (130-400); Red Cell Dist. Width 13.4 % (11.5-14.5); White Blood Cell Count 9.6 10^3/uL (4.8-10.8)
[2025-02-27] MEDS: MORPHINE SULFATE 2 MG IV (02:47)
[2025-02-27 02:57] LABS: ALT (SGPT) 12 U/L (0-35); AST (SGOT) 21 U/L (14-36); Albumin 3.2 g/dl (3.5-5.0); Alkaline Phosphatase 44 U/L (38-126); Blood Urea Nitrogen 24 mg/dl (7-17); Calcium 8.7 mg/dl (8.4-10.2); Carbon Dioxide 26 mmol/L (22-30); Chloride 109 mmol/L (98-107); Estimated Creatinine Clearance 70 ml/min; Glucose 126 mg/dl (70-99); Lipase 128 U/L (23-300); Potassium 4.1 mmol/L (3.5-5.1); Sodium 140 mmol/L (135-145); Total Bilirubin 0.8 mg/dl (0.2-1.3); Total Protein 5.8 g/dl (6.3-8.2); eGFR > 60.00
[2025-02-27] MEDS: TYLENOL 650 MG PO (03:35)
[2025-02-27 05:31] LABS: COVID-19 Antigen Negative (Negative)
--- NOTE | 2025-02-27 05:50 | HPS.HSE ---
Family Physician
-
Family Physician: Angela Hussein
Chief Complaint
-
Fall at Home
History of Present Illness
Patient is an 84y F with PMH significant for ASCVD, A-Fib and recent hospitalization for RLE hematoma who presents to ED complaining of RUE pain s/p fall at home. History obtained from patient and family at the bedside. Patient has baseline
aphasia and communicates via head nods and thumbs up / thumbs down indicators. Patient returned home from [facility] yesterday. She was incontinent of loose stool and had a single episode of N/V yesterday afternoon. Patient slept for much of the
remainder of the day. Today she had additional N/V/D and seemed generally weak and somewhat confused according to family.
Patient was transferring from chair to bed this evening when her legs 'gave way' and she fell. Daughter described this as a 'slow fall'. Patient reached out to the bedside table in an attempt to catch herself; however, this resulted only in her
RUE begin twisted behind her back at an odd angle.
She did not strike her head and she did not lose consciousness.
Patient had immediate pain in the RUE and was brought to the ED for further evaluation.
Medical History
Past Medical History
Past Medical History: Reports Other
Additional Past Medical History:
Picks Disease / Frontotemporal Dementia
A-Fib
CHF
Hypothyroidism
Hyperlipidemia
DVT
Dementia
Asthma
Hypertension
Ambulatory dysfunction anxiety
Past Surgical History: Reports Other
Additional Past Surgical History:
Bilateral knee surgeries
Cholecystectomy
Right hip replacement
Pacemaker
Cataract surgery
Social History
Tobacco: Non-smoker
Alcohol: None
Drug: None
Living: With Family
Family History
Family History: Not pertinent
Allergies / Home Medications
Allergies reflects when Allergies were last updated in [facility].
Home Medications with original date entered in [facility]
Allergy/Medication List:
Allergies
Allergy/AdvReac Type Severity Reaction Status Date / Time
aspirin Allergy Anaphylaxis Verified 02/27/25 00:33
ketorolac tromethamine Allergy Unknown Verified 02/27/25 00:33
[From Toradol]
Vebdtfu-NIE-BmD Reductase AdvReac Unknown Verified 02/27/25 00:33
Inhibitor
[Snkkeeg-Llj-Qjo Reductase
Inhibitor]
iv dye Allergy Anaphylaxis Uncoded 02/27/25 00:33
Home Medications
acetaminophen 500 mg tablet (Tylenol Extra Strength) 1,000 mg PO Q6HPRN PRN mild pain 10/09/14
cetirizine 10 mg tablet 10 mg PO DAILY Allergies 10/09/14
colesevelam 625 mg tablet (WelChol) 1,250 mg PO BID High Cholesterol 10/09/14
furosemide 40 mg tablet 20 mg PO MOWEFR Fluid Retention/Swelling 10/09/14
levothyroxine 50 mcg tablet 50 mcg PO DAILY AT 0700 Thyroid 10/09/14
potassium chloride 20 mEq tablet,extended release(part/cryst) (Klor-Con M) 20 meq PO DAILY Supplement 10/09/14
prednisone 10 mg tablet 10 mg PO DAILY SINUSITIS ##50 10/09/14
apixaban 5 mg tablet 5 mg PO BID Blood Clot Prevention/Tx 08/21/23
cholecalciferol (vitamin D3) 25 mcg (1,000 unit) capsule (Vitamin D3) 25 mcg PO HS Supplement 08/21/23
omeprazole 40 mg capsule,delayed release 40 mg PO DAILY gerd 08/21/23
sacubitril 24 mg-valsartan 26 mg tablet (Entresto) 1 tab PO BID Heart Failure 08/21/23
albuterol sulfate 2.5 mg/3 mL (0.083 %) solution for nebulization 2.5 mg inhalation R Q6HPRN PRN sob 02/07/25
beclomethasone dipropionate 80 mcg/actuation HFA breath activated aerosol (Qvar RediHaler) 2 inh inhalation R BID 02/07/25
carvedilol 3.125 mg tablet 3.125 mg PO BID 02/07/25
escitalopram oxalate 20 mg tablet 20 mg PO HS 02/07/25
evolocumab 140 mg/mL subcutaneous pen injector (Repatha SureClick) 140 mg SC Q2W 02/07/25
morphine concentrate 100 mg/5 mL (20 mg/mL) oral solution 5 mg PO Q4HPRN PRN severe pain/sob 02/07/25
Review of Systems
-
History Source: Patient
A 12 point ROS was completed and negative except as noted: Yes
Constitutional: Reports Fatigue; Denies Fever or Chills
Respiratory: Denies Cough or Trouble Breathing
Cardiac: Denies Chest Pain or Palpitations
Abdomen/GI: Reports Nausea, Vomiting and Diarrhea; Denies Abdominal Pain
: Denies Dysuria or Frequency
Musculoskeletal: Reports Joint Pain; Denies Edema
Neurological: Denies Dizzy or Headache
Physical Exam
Vital Signs
Vital Signs
Temp Pulse Resp BP Pulse Ox
101.0 F H 101 20 94/69 97
02/27/25 03:34 02/27/25 05:15 02/27/25 05:15 02/27/25 05:04 02/27/25 00:34
Physical Exam
General: Other (84y F in no acute distress.)
HEENT: Moist mucous membranes
Respiratory: Clear; No Wheezes, Rales or Rhonchi
Cardiac: S1/S2 and Irregular Rhythm; No Murmur
GI: Soft, Non Distended, Normal Bowel Sounds and Other (mildly diffusely tender)
Musculoskeletal: No Clubbing, No Cyanosis, No Edema and Other (RUE deformity. Splint / wrap in place. Wrist brace in place. )
Neuro: Awake, Alert and Other (Chronically non-verbal.)
Laboratory Results
-
02/27/25 02:21
02/27/25 02:21
Laboratory Results
Lactic Acid 1.0 mmol/L (0.7-2.0) 02/27/25 04:45
Total Bilirubin 0.8 mg/dl (0.2-1.3) 02/27/25 02:21
AST 21 U/L (14-36) 02/27/25 02:21
ALT 12 U/L (0-35) 02/27/25 02:21
Alkaline Phosphatase 44 U/L (38-126) 02/27/25 02:21
Lipase 128 U/L (23-300) 02/27/25 02:21
Impression/Plan
-
A/P: Patient is an 84y F with PMH significant for ASCVD, CHF and hypertension who presents to ED s/p fall at home.
Fall at Home
R Humerus Fracture
R Distal Radius Fracture
- Admit for further evaluation and treatment.
- Keep RUE immobilized.
- Supportive care / pain control.
- Hold Eliquis in preparation for operative intervention.
- Ortho consulted for further recommendations.
N/V/D
- Patient incontinent of stool at home and multiple episodes of watery diarrhea here in the ED.
- Febrile to 101. Follow fever curve.
- Check stool studies.
- Supportive care / IVFs / etc.
ASCVD
Chronic HFrEF
Paroxysmal Atrial Fibrillation
- Stable. Hold Eliquis acutely as noted above.
- Hold Lasix given GI losses.
- Continue other CV medications and monitor for any new symptoms.
COPD without Acute Exacerbation
- Stable. Continue Qvar / prednisone.
Hypothyroidism
- Stable. Continue T4 supplementation.
GERD
- Hold PPI for now given diarrhea.
Frontotemporal Dementia
Chronic Aphasia
- Stable. Continue morphine PRN for laryngeal spasms / dyspnea.
DVT Prophylaxis: SCDs
Code Status: DNR
[2025-02-27 06:49] LABS: Glucose - Point of Care 116 mg/dl (70-99)
--- NOTE | 2025-02-27 07:05 | W.PN.UPDATE ---
Update Note
Progress Note Update
4757 HEAD OF ICT called for hypotension.
Pt just arrived to unit and when bp checked it was noted to be SBP 70s-60s. PT totally asymptomatic- smiling and answering with thumbs up or down.
Will give LR bolus and then continue maintenance fluids.
[2025-02-27 07:13] LABS: Hematocrit 30.9 % (37.0-47.0); Hemoglobin 10.2 g/dL (12.0-16.0)
[2025-02-27] MEDS: LR 500 IV (07:15)
[2025-02-27 07:22] LABS: INR 1.26; PT 16.4 Sec (11.4-14.6)
[2025-02-27 07:23] LABS: APTT 34.4 Sec (23.4-35.0)
[2025-02-27 07:30] LABS: Blood Urea Nitrogen 24 mg/dl (7-17); Calcium 8.3 mg/dl (8.4-10.2); Carbon Dioxide 24 mmol/L (22-30); Chloride 109 mmol/L (98-107); Estimated Creatinine Clearance 60 ml/min; Glucose 109 mg/dl (70-99); Lactic Acid 1.3 mmol/L (0.7-2.0); Potassium 3.8 mmol/L (3.5-5.1); Sodium 140 mmol/L (135-145); eGFR > 60.00
[2025-02-27 07:41] LABS: Troponin I 0.023 ng/ml
[2025-02-27] MEDS: FLOVENT 110 MCG INHALER 2 PUFF INH ×2 (08:08→17:49)
--- NOTE | 2025-02-27 08:15 | W.PN.UPDATE ---
Update Note
Progress Note Update
Full consult H&P to follow
84-year-old female nonverbal with right displaced spiral humeral shaft fracture and minimally displaced distal radius fracture.
Neurovascularly intact on examination.
Recommended for nonoperative treatment. Maintain in current splint he continue nonweightbearing. Recommend OT/PT consult
Repeat x-rays in 1 week to monitor for interval displacement
[2025-02-27] MEDS: SYNTHROID 50 MCG PO (09:01)
[2025-02-27] MEDS: ZYRTEC 10 MG PO (09:02)
[2025-02-27] MEDS: DELTASONE 10 MG PO (09:02)
[2025-02-27] MEDS: TYLENOL 1000 MG PO ×2 (09:02→17:08)
[2025-02-27] MEDS: ENTRESTO 24 MG/26 MG PO (09:02)
[2025-02-27] MEDS: PROTONIX 40 MG PO (09:03)
[2025-02-27] MEDS: LR 1000 IV ×2 (09:31→22:55)
--- NOTE | 2025-02-27 10:04 | CON.CAR ---
Addendum entered and electronically signed by Audra Zheng DO 02/27/25 16:20:
I saw and examined the patient.
The Budget Report Clerk's note was reviewed and I agree with the note.
Comment: Patient was seen and examined with cardiac PA. Smiley is an 84 year old female with PMH of CVA w/ aphasia, recovered CM, ICD, chronic HFpEF, paroxysmal atrial fibrillation, HTN, HLD, hypothyroidism, COPD, and DVT. Presented to ER after a
fall at home w/ subsequent R arm pain. She has baseline aphasia, but is able to communicate w/ head nods and thumbs up/down. On review of H&P appears she had been struggling with nausea and vomiting w/ loose stool at home and was weak and somewhat
confused per family. She was then getting into bed and her legs gave out, resulting in fall. She tried to catch herself w/ the bedside table, but was unable to and arm twisted w/ fall. In ER, head CT negative for acute intracranial abnormality.
Humerus xray revealed oblique fracture through the proximal third of the R humerus with displacement and partial overlap of the fracture fragments. Also noted to have acute intra-articular fracture of the distal R radius w/ minimal posterior
displacement of the distal fracture fragment. She was evaluated by orthopedics and plan is for nonsurgical management. Splint in place. Cardiology consulted as she was noted to have frequent bursts of tachycardia on telemetry as well as episode of
hypotension this AM resulting in rapid response. She reports no complaints and denies chest pain, palpitations, dizziness, lightheadedness, or SOB. Only complaint is arm pain.
General: No acute distress, Awake and alert, chronically nonverbal. Sitting upright in bed after lunch. Most of her questions were met with thumbs up's with 1 thumbs down when I asked about pain in her right arm.
Heart:Regular. Positive S1-S2. Pacemaker intact.No murmurs
Lungs: CTA b/l, negative wheezes/rales/rhonchi
Abd: Positive BS, NT/ND, neg rebound/rigidity/guarding
Ext: No lower extremity edema. Right arm in Javier bandage and splint
Plan:
Echo 02/12/2024: EF 50-55%, stage I diastolic dysfunction, trace MR, moderate with peak/mean gradients 23/12 mmHg, mild TR
Plan:
Admitted w/ R humerus and distal radius fractures s/p fall at home.
-Plan is for non-operative management per orthopedics.
-Continue pain control per ortho/primary service.
-Cardiology consulted after episode of hypotension and tachycardia this AM.
-Asymptomatic by report.
-Appears well w/ no complaints other than arm pain currently.
-Unclear if blood pressure is accurate and I have asked blood pressure to also be checked in the leg for correlation
-For now we will hold antihypertensive therapy including Entresto, Lasix and carvedilol
-Appears euvolemic and agree with IV fluids with cautious monitoring of volume status with a history of recovered cardiomyopathy
-Bursts of tachycardia noted on telemetry. Know h/o paroxysmal atrial fibrillation.
-A sensed V paced on EKG from ER.
-Will check device.
-Eliquis had been on hold in anticipation of possible surgery. With no plans for surgery, will resume Eliquis 5 mg BID. Hgb stable at 10.2.
-Check TSH
-K 3.8. Check mag.
-Await stool studies. Has been having nausea, vomiting, and diarrhea.
-Covid, flu negative.
Original Note:
Consultation
Consultation Request
Date/Time Consultation Requested: 02/27/2025
Date/Time Consultation Performed: 02/27/2025
Requesting Provider: Dr. West
Performing Provider: Annetta Crockett PA-C for Dr. Zheng
Reason for Consultation: tachycardia
Medical History
-
History of Present Illness:
HPI: Smiley is an 84 year old female with PMH of CVA w/ aphasia, recovered CM, ICD, chronic HFpEF, paroxysmal atrial fibrillation, HTN, HLD, hypothyroidism, COPD, and DVT. Presented to ER after a fall at home w/ subsequent R arm pain. She has
baseline aphasia, but is able to communicate w/ head nods and thumbs up/down. On review of H&P appears she had been struggling with nausea and vomiting w/ loose stool at home and was weak and somewhat confused per family. She was then getting into
bed and her legs gave out, resulting in fall. She tried to catch herself w/ the bedside table, but was unable to and arm twisted w/ fall. In ER, head CT negative for acute intracranial abnormality. Humerus xray revealed oblique fracture through the
proximal third of the R humerus with displacement and partial overlap of the fracture fragments. Also noted to have acute intra-articular fracture of the distal R radius w/ minimal posterior displacement of the distal fracture fragment. She was
evaluated by orthopedics and plan is for nonsurgical management. Splint in place. Cardiology consulted as she was noted to have frequent bursts of tachycardia on telemetry as well as episode of hypotension this AM resulting in rapid response. She
reports no complaints and denies chest pain, palpitations, dizziness, lightheadedness, or SOB. Only complaint is arm pain.
PMH:
Aphasic as result of prior CVA
h/o recovered CM
s/p [employer] ICD with [employer] leads
Chronic HFpEF
Paroxysmal atrial fibrillation
Chronic Eliquis AC
Mod
HTN
HLD
Hypothyroidism
COPD
h/o DVT
Past Medical History
Past Medical History: Other (in HPI)
Social History
Tobacco: Non-Smoker
Alcohol: Occasional
Personal:
Living: With Family
Family History
Family History: Cancer and Hypertension
Allergies / Home Medications
Allergy/AdvReac Type Severity Reaction Status Date / Time
aspirin Allergy Anaphylaxis Verified 02/27/25 00:33
ketorolac tromethamine Allergy Unknown Verified 02/27/25 00:33
[From Toradol]
Djietul-YIE-SyX Reductase AdvReac Unknown Verified 02/27/25 00:33
Inhibitor
[Iifngsx-Hvp-Vlw Reductase
Inhibitor]
iv dye Allergy Anaphylaxis Uncoded 02/27/25 00:33
�Medication �Instructions �Recorded �Confirmed �Type
acetaminophen 500 mg tablet 1,000 mg PO Q6HPRN PRN mild pain 10/09/14 02/27/25 History
(Tylenol Extra Strength)
cetirizine 10 mg tablet 10 mg PO DAILY Allergies 10/09/14 02/27/25 History
colesevelam 625 mg tablet (WelChol) 1,250 mg PO BID High Cholesterol 10/09/14 02/27/25 History
furosemide 40 mg tablet 20 mg PO MOWEFR Fluid 10/09/14 02/27/25 History
Retention/Swelling
levothyroxine 50 mcg tablet 50 mcg PO DAILY AT 0700 Thyroid 10/09/14 02/27/25 History
potassium chloride 20 mEq 20 meq PO DAILY Supplement 10/09/14 02/27/25 History
tablet,extended
release(part/cryst) (Klor-Con M)
prednisone 10 mg tablet 10 mg PO DAILY SINUSITIS ##50 10/09/14 02/27/25 Rx
apixaban 5 mg tablet 5 mg PO BID Blood Clot 08/21/23 02/27/25 History
Prevention/Tx
cholecalciferol (vitamin D3) 25 25 mcg PO HS Supplement 08/21/23 02/27/25 History
mcg (1,000 unit) capsule (Vitamin
D3)
omeprazole 40 mg capsule,delayed 40 mg PO DAILY gerd 08/21/23 02/27/25 History
release
sacubitril 24 mg-valsartan 26 mg 1 tab PO BID Heart Failure 08/21/23 02/27/25 History
tablet (Entresto)
albuterol sulfate 2.5 mg/3 mL 2.5 mg inhalation R Q6HPRN PRN sob 02/07/25 02/27/25 History
(0.083 %) solution for nebulization
beclomethasone dipropionate 80 2 inh inhalation R BID 02/07/25 02/27/25 History
mcg/actuation HFA breath activated
aerosol (Qvar RediHaler)
carvedilol 3.125 mg tablet 3.125 mg PO BID 02/07/25 02/27/25 History
escitalopram oxalate 20 mg tablet 20 mg PO HS 02/07/25 02/27/25 History
evolocumab 140 mg/mL subcutaneous 140 mg SC Q2W 02/07/25 02/27/25 History
pen injector (Repatha SureClick)
morphine concentrate 100 mg/5 mL 5 mg PO Q4HPRN PRN severe pain/sob 02/07/25 02/27/25 History
(20 mg/mL) oral solution
Review of Systems
-
History Source: Patient
All other systems: Negative unless noted
Physical Exam
Vital Signs
Temp Pulse Resp BP Pulse Ox
99.8 F 90 16 82/41 97
02/27/25 06:48 02/27/25 07:05 02/27/25 06:48 02/27/25 09:35 02/27/25 07:05
Lab Results
02/27/25 06:55
02/27/25 06:55
Troponin I 0.023 ng/ml 02/27/25 06:55
Physical Exam
General: Well Developed, Well Nourished and No Apparent Distress
HEENT: Normocephalic and Moist Mucous Membranes
Respiratory: Clear and Non Labored Respirations
Cardiac: S1/S2, Regular Rhythm and Murmur
Musculoskeletal: No Clubbing and No Cyanosis
Skin: Warm and Dry
Neuro: AO x 3
Psych: Calm
Impression / Plan
-
PCP: Dr. Mittal
Clinical Liaison: Dr. Hobson
Impression:
Presented w/ fall, R arm pain
R humerus fracture
R distal radial fracture
Hypotension
Tachycardia
Aphasic as result of prior CVA
h/o recovered CM
s/p [employer] ICD with [employer] leads
Chronic HFpEF
Paroxysmal atrial fibrillation
Chronic Eliquis AC
Mod
HTN
HLD
Hypothyroidism
COPD
h/o DVT
Echo 02/12/2024: EF 50-55%, stage I diastolic dysfunction, trace MR, moderate with peak/mean gradients 23/12 mmHg, mild TR
Plan:
-Presented w/ R arm pain s/p fall at home. Admitted w/ R humerus and distal radius fractures. Plan is for non-operative management per orthopedics.
-Continue pain control per ortho/primary service.
-Cardiology consulted after episode of hypotension and tachycardia this AM. Asymptomatic by report. Appears well w/ no complaints other than arm pain currently.
-Entresto and Coreg held 02/27 due to hypotension w/ BP as low as 60/42. BP trending up w/ IVFs, now 82/41. Denies dizziness/lightheadedness.
-Bursts of tachycardia noted on telemetry. Know h/o paroxysmal atrial fibrillation.
-A sensed V paced on EKG from ER.
-Will check device.
-Eliquis had been on hold in anticipation of possible surgery. With no plans for surgery, will resume Eliquis 5 mg BID. Hgb stable at 10.2.
-Check TSH
-K 3.8. Check mag.
-Has been on lasix 20mg MWF as OP. Diuretics on hold w/ hypotension. Follow volume status closely.
-Await stool studies. Has been having nausea, vomiting, and diarrhea.
-Covid, flu negative.
HPI: Smiley is an 84 year old female with PMH of CVA w/ aphasia, recovered CM, ICD, chronic HFpEF, paroxysmal atrial fibrillation, HTN, HLD, hypothyroidism, COPD, and DVT. Presented to ER after a fall at home w/ subsequent R arm pain. She has
baseline aphasia, but is able to communicate w/ head nods and thumbs up/down. On review of H&P appears she had been struggling with nausea and vomiting w/ loose stool at home and was weak and somewhat confused per family. She was then getting into
bed and her legs gave out, resulting in fall. She tried to catch herself w/ the bedside table, but was unable to and arm twisted w/ fall. In ER, head CT negative for acute intracranial abnormality. Humerus xray revealed oblique fracture through the
proximal third of the R humerus with displacement and partial overlap of the fracture fragments. Also noted to have acute intra-articular fracture of the distal R radius w/ minimal posterior displacement of the distal fracture fragment. She was
evaluated by orthopedics and plan is for nonsurgical management. Splint in place. Cardiology consulted as she was noted to have frequent bursts of tachycardia on telemetry as well as episode of hypotension this AM resulting in rapid response. She
reports no complaints and denies chest pain, palpitations, dizziness, lightheadedness, or SOB. Only complaint is arm pain.
Data Reviewed
-
EKG: Tracing Personally Visualized and interpreted
Radiology: Report Reviewed by me
CT Scan: Report Reviewed by me
Labs: Labs Reviewed by me
Old Records: Reviewed
--- NOTE | 2025-02-27 10:15 | RR ---
A Rapid Response was called on this patient, please see Rapid Response form.
Arrived into pt's room at 0640 with a B/P of 60/42. Pt just arrived to floor from ED approx 15min prior. Pt was asymptomatic, giving a thumbs up due to inability to speak from previous stroke. Manual B/P at this time was 70/34; 77/32. Rapid response
called at 0647. 500ml bolus of LR infused as ordered. B/P after 1st bolus 80/50. Pt remained asymptomatic, alert and denied dizziness or lightheadedness by thumbs up. Dr West up to see patient and additional bolus of 500ml NS ordered and given. B/P
after 2nd bolus 82/41. Pt remains asymptomatic at present. IV fluids infusing at 80ml/hr as ordered. Confirmed with daughter that pt's B/P does usually run low (90/50's) on average. Will continue to monitor.
[2025-02-27 11:43] LABS: Magnesium 1.6 mg/dl (1.6-2.3)
--- NOTE | 2025-02-27 12:14 | W.PN.HOSP.TC ---
Today's Communication/Plan
-
IV fluid/IV antibiotic
Assessment / Plan
Assessment / Plan
Impression:
Patient is 84 years old with history of coronary artery disease, congestive heart failure, hypertension, paroxysmal A-fib who came to the ER with fall at home found to have right humeral fracture, distal radius fracture, SNUFF BOX FINISHER called for low blood
pressure, patient also was tachycardic on cardiac cath lab manager.
Seen by orthopedic, no surgical intervention.
Seen by cardiology.
Patient is DNR.
Assessment/plan:
Status post fall with right humeral fracture/right radial fracture
X-ray right humerus showed:
Oblique fracture is identified through the proximal third of the right humerus. There is displacement and partial overlap of fracture fragments.
No additional fractures are seen.
X-ray right wrist
. ACUTE INTRA-ARTICULAR FRACTURE of the DISTAL RIGHT RADIUS with minimal posterior displacement of the distal fracture fragment.
2. Severe sclerosis throughout the lunate. Diagnostic possibilities are (1) LUNATE OSTEONECROSIS (Kienbock disease) or (2) subchondral sclerosis from osteoarthritis.
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
4. Severe subcutaneous edema and swelling in the lateral right wrist.
CT head No intracranial hemorrhage, and no displaced skull fracture appreciated.
Fall precautions.
PT/OT consult.
Social service for discharge planning.
Ortho consulted for further recommendations, no surgical intervention.
Pain control.
Hypovolemic shock
SNUFF BOX FINISHER called for hypotension
Patient is asymptomatic
Patient continued to be hypotensive
As per daughter she runs low blood pressure at home.
Worsening with volume depletion secondary to diarrhea, nausea, vomiting.
Started on IV fluid and received multiple boluses
Holding carvedilol/Lasix/Entresto
Will add midodrine
Consider upgrade to IMU if persistent hypotension
Acute gastroenteritis
Patient presented with nausea/vomiting/diarrhea
Fever 101
[address] abdomen pelvis showed:
1. Fluid within the rectum, consistent with diarrhea. No inflammatory change or significant bowel wall thickening. No evidence of intestinal obstruction.
2. Small ventral hernia near the midline in the infraumbilical region, containing several loops of small bowel. No evidence of incarceration or intestinal obstruction.
3. Mild coronary arterial calcification. Please correlate with symptoms of and risk factors for coronary artery disease, with further workup as clinically appropriate
C. difficile negative
Salmonella/Shigella/Campylobacter pending
Start Flagyl/Rocephin empirically since patient had fever
Consider Imodium if rest of infectious workup negative
Pulmonology nodule
this x-ray showes
1. 1.2 cm nodular opacity projected over the right upper lung zone, not seen on prior chest x-rays. Further evaluation is suggested with noncontrast CT of the chest.
2. Otherwise clear lungs.
Will order CT chest once blood pressure stable
Coronary artery disease
Carvedilol on hold
no chest pain
Chronic HFrEF
Currently hypervolemic.
Lasix/Entresto/carvedilol on hold
Paroxysmal Atrial Fibrillation now in A-fib with RVR
Carvedilol on hold for low blood pressure.
Resumed Eliquis.
Cardiology consulted
COPD without Acute Exacerbation
- Stable. Continue Qvar / prednisone.
Hypothyroidism
- Stable. Continue T4 supplementation.
Frontotemporal Dementia
Chronic Aphasia
- Stable. Continue morphine PRN for laryngeal spasms / dyspnea.
Code Status: DNR
DVT prophylaxis: Eliquis
Diet: Regular diet
Total time spent on today's encounter was 75 minutes which included time spent in counseling the patient/family regarding diagnosis and treatment plan as listed above, goals of care, and symptom management. Case was discussed with nursing staff,
specialists, and care coordinators/case management. All labs and imaging personally reviewed by me. Remainder the time spent in detailed review of previous records, lab data, imaging, and other medical provider documentation.
Anticipated Discharge: > 48 hours
Subjective/Interval History
-
Date of Service: February 27, 2025
Patient seen and examined at bedside.
Patient had SNUFF BOX FINISHER at 645 for hypotension.
Patient received IV fluid bolus.
Patient remains asymptomatic.
1 patient examined in the morning noted to have bursts of tachycardia in the cardiac cath lab manager, cardiology consulted.
Orthopedic recommended no operative intervention for humeral fracture.
Objective Data
-
Labs:
Laboratory Results
02/27/25 02/27/25
02:21 06:55
WBC 9.6
Hgb 11.0 L 10.2 L
Hct 33.9 L 30.9 L
Plt Count 211
PT 16.4 H
INR 1.26
APTT 34.4
Sodium 140 140
Potassium 4.1 3.8
Chloride 109 H 109 H
Carbon Dioxide 26 24
BUN 24 H 24 H
Creatinine 0.6 0.7
Glucose 126 H 109 H
Calcium 8.7 8.3 L
Total Bilirubin 0.8
AST 21
ALT 12
Alkaline Phosphatase 44
Vital Signs:
Vital Signs
Temp Pulse Resp BP Pulse Ox
98.6 F 129 18 76/47 92
02/27/25 11:00 02/27/25 11:00 02/27/25 11:00 02/27/25 11:00 02/27/25 11:00
Physical Exam
-
General: Well Developed, Appears in Distress and Pain
HEENT: Normocephalic, Atraumatic, Moist Mucous Membranes, No Ptosis, PERRLA and Nose Appears Normal
Respiratory: Rales and Non Labored Respirations
Cardiac: Irregular Rhythm and Tachycardic
Breast: Deferred by me
GI: Soft, Nontender, Nondistended and Normal Bowel Sounds
Genito-urinary: No Costovertebral Tender
Musculoskeletal: Other (Right shoulder splint)
Skin: Warm
Neuro: Awake, Alert, Oriented, AO x 3 and No Motor Deficits
Psych: Calm
Data Reviewed
-
Diagnostic Radiology: Image personally visualized and interpreted and Report Reviewed by me
CT Scan: Image personally visualized and interpreted and Report Reviewed by me
Ultrasound: Image personally visualized and interpreted and Report Reviewed by me
MRI: Image personally visualized and interpreted and Report Reviewed by me
Medical Tests (Nuc Med, Echo etc): Image personally visualized and interpreted and Report Reviewed by me
Labs: Labs Reviewed by me
Old Records: Reviewed
[2025-02-27] MEDS: FLAGYL 500 MG 100 IV ×2 (13:08→21:36)
[2025-02-27] MEDS: FLUSH (NSS) 1 FLUSH IV ×2 (13:08→13:15)
[2025-02-27] MEDS: STERILE WATER FOR INJECTION 10 ML IV (13:09)
[2025-02-27] MEDS: ROCEPHIN 1000 MG IV (13:09)
--- NOTE | 2025-02-27 14:52 | CM ---
CM reviewed chart, call to patients daughter, Ana, to complete initial assessment. Daughter reports patient was recently discharged from hospital to [facility] rehab, now back in hospital. Daughter reports all patients information should be in
records.
Per previous CM note:
Pt is non-verbal aphasic, AxO 3x and communicates with thumbs up/down
Pt resides with her dtr in a 2SH with ramp entrance, stairglide to 2nd floor where her primary area of living is located
Pt ambulates with a rollator independently throughout the home
Limited UE strength and dexterity- dtr assists with all ADLs and personal care
Pt utilizes a wheelchair or rollator while in the community- unable to self propel
Current with Palliative Care, recently discharged from [facility].
PCP- Angela Hussein
Rx- [facility] [place]
Patient receiving IV fluids, IV antibiotics. Ortho consulted- no surgical interventions.
Plan; will watch for PT/OT recommendations when able.
[2025-02-27] MEDS: ProAmatine 5 MG PO (17:08)
[2025-02-27] MEDS: ProAmatine PO (17:08)
[2025-02-27 19:58] LABS: TSH Reflex To Free T4 1.26 uIU/ml (0.47-4.68)
[2025-02-27] MEDS: ELIQUIS 5 MG PO (21:37)
[2025-02-27] MEDS: LEXAPRO 20 MG PO (21:37)
[2025-02-27] MEDS: DILAUDID 0.5 MG IV (21:51)
[2025-02-28] VITALS (8 sets, daily range): BP systolic 93–109; BP diastolic 39–72; BMI 33.0
[2025-02-28] MEDS: TYLENOL PO (02:50)
[2025-02-28] MEDS: SYNTHROID 50 MCG PO (05:58)
[2025-02-28] MEDS: FLAGYL 500 MG 100 IV ×3 (05:58→21:41)
[2025-02-28 06:25] LABS: Urine Albumin 2+ (Neg - Trace); Urine Bilirubin Negative (Negative); Urine Character Slightly Cloudy (Clear); Urine Color Amber; Urine Glucose Negative (Negative); Urine Ketone Negative (Negative); Urine Leukocyte 2+ (Negative); Urine Nitrite Negative (Negative); Urine Occult Blood Negative (Negative); Urine Specific Gravity 1.025 (<1.030); Urine Urobilinogen Negative (Neg - 1+)
[2025-02-28 06:55] LABS: Urine Amorphous Seen; Urine Squamous Cell >30 /LPF (Few); Urine Urothelial Cell >30 /LPF (FEW)
[2025-02-28 06:56] LABS: Urine Bacteria Many (Negative); Urine White Cell >100 /HPF (0-5)
[2025-02-28 07:15] LABS: Hemoglobin 8.1 g/dL (12.0-16.0); Mean Corp Hgb Conc. 33.8 g/dL (33.0-37.0); Mean Corpuscular Hgb 33.3 pg (27.0-31.0); Mean Corpuscular Volume 98.8 fL (81.0-99.0); Mean Platelet Volume 10.2 fL (7.4-10.4); Platelet Count 147 10^3/uL (130-400); Red Blood Cell Count 2.43 10^6/uL (4.20-5.40); Red Cell Dist. Width 13.2 % (11.5-14.5); White Blood Cell Count 7.2 10^3/uL (4.8-10.8)
[2025-02-28 07:17] LABS: Blood Urea Nitrogen 26 mg/dl (7-17); Calcium 7.8 mg/dl (8.4-10.2); Carbon Dioxide 21 mmol/L (22-30); Chloride 109 mmol/L (98-107); Estimated Creatinine Clearance 59 ml/min; Glucose 82 mg/dl (70-99); Potassium 3.6 mmol/L (3.5-5.1); Sodium 137 mmol/L (135-145); eGFR > 60.00
[2025-02-28] MEDS: FLOVENT 110 MCG INHALER 2 PUFF INH ×2 (08:14→17:57)
--- NOTE | 2025-02-28 09:26 | CON.ORTHO ---
Consultation
-
Date/Time Consultation Requested: 02/27/25 06:53
Date/Time Consultation Performed: 02/27/25 0800
Requesting Provider: Dr. Guillermo Katz
Performing Provider: JOSE Allen, Dr. Allan Ruby
Reason for Consultation: R humerus fracture, R distal radius fracture
Consultation - Orthopedics
History
84-year-old female presenting to [facility] due to a fall at home with complaints of right upper extremity pain. Patient has a baseline aphasia difficulty with communication. She x-rays done in the emergency room showed fractures of her
right upper extremity. Denies any paresthesias. She is able to transfer with assist devices and had some weakness at the time of her fall when she reportedly gave way
Allergies / Home Medications
Past Medical History: Reports Other
Additional Past Medical History:
Picks Disease / Frontotemporal Dementia
A-Fib
CHF
Hypothyroidism
Hyperlipidemia
DVT
Dementia
Asthma
Hypertension
Ambulatory dysfunction
anxiety
Past Surgical History: Reports Other
Additional Past Surgical History:
Bilateral knee surgeries
Cholecystectomy
Right hip replacement
Pacemaker
Cataract surgery
Allergy/AdvReac Type Severity Reaction Status Date / Time
aspirin Allergy Anaphylaxis Verified 02/27/25 00:33
ketorolac tromethamine Allergy Unknown Verified 02/27/25 00:33
[From Toradol]
Exqthim-DDJ-WuY Reductase AdvReac Unknown Verified 02/27/25 00:33
Inhibitor
[Mmfpztq-Gmz-Cew Reductase
Inhibitor]
iv dye Allergy Anaphylaxis Uncoded 02/27/25 00:33
�Medication �Instructions �Recorded
acetaminophen 500 mg tablet 1,000 mg PO Q6HPRN PRN mild pain 10/09/14
(Tylenol Extra Strength)
cetirizine 10 mg tablet 10 mg PO DAILY Allergies 10/09/14
colesevelam 625 mg tablet (WelChol) 1,250 mg PO BID High Cholesterol 10/09/14
furosemide 40 mg tablet 20 mg PO MOWEFR Fluid 10/09/14
Retention/Swelling
levothyroxine 50 mcg tablet 50 mcg PO DAILY AT 0700 Thyroid 10/09/14
potassium chloride 20 mEq 20 meq PO DAILY Supplement 10/09/14
tablet,extended
release(part/cryst) (Klor-Con M)
prednisone 10 mg tablet 10 mg PO DAILY SINUSITIS ##50 10/09/14
apixaban 5 mg tablet 5 mg PO BID Blood Clot 08/21/23
Prevention/Tx
cholecalciferol (vitamin D3) 25 25 mcg PO HS Supplement 08/21/23
mcg (1,000 unit) capsule (Vitamin
D3)
omeprazole 40 mg capsule,delayed 40 mg PO DAILY gerd 08/21/23
release
sacubitril 24 mg-valsartan 26 mg 1 tab PO BID Heart Failure 08/21/23
tablet (Entresto)
albuterol sulfate 2.5 mg/3 mL 2.5 mg inhalation R Q6HPRN PRN sob 02/07/25
(0.083 %) solution for nebulization
beclomethasone dipropionate 80 2 inh inhalation R BID 02/07/25
mcg/actuation HFA breath activated
aerosol (Qvar RediHaler)
carvedilol 3.125 mg tablet 3.125 mg PO BID 02/07/25
escitalopram oxalate 20 mg tablet 20 mg PO HS 02/07/25
evolocumab 140 mg/mL subcutaneous 140 mg SC Q2W 02/07/25
pen injector (Repatha SureClick)
morphine concentrate 100 mg/5 mL 5 mg PO Q4HPRN PRN severe pain/sob 02/07/25
(20 mg/mL) oral solution
Vital Signs / Lab Results
Temp Pulse Resp BP Pulse Ox
99.0 F 72 14 102/39 97
02/28/25 07:30 02/28/25 08:24 02/28/25 08:24 02/28/25 07:30 02/28/25 08:24
PHYSICAL EXAM: Examination of the right upper extremity shows an intact splint as well as brace to the right wrist. Patient demonstrates neuro vastly intact distally with sensation intact to light touch reportedly distally and motor function
demonstrated to the AIN PIN and ulnar nerve. Brisk capillary refill less than 2 seconds
IMAGING:
X-rays taken of the right wrist reviewed showing a spiral oblique fracture pattern that is intra-articular with minimal displacement. Baseline arthrosis of the radiocarpal joint and triscaphe and interphalangeal joint spaces
X-rays taken of the right humerus show displaced spiral fracture of the humerus
02/28/25 06:22
02/28/25 06:22
Assessment / Plan
84-year-old female with baseline aphasia and ambulatory dysfunction status with mechanical fall fractures of the right upper extremity showing displaced humeral diaphyseal fracture as well as a minimally displaced distal radius fracture. Imaging
was reviewed by Dr. Ruby.
At this timeframe the patient is recommended for nonoperative treatment. Recommend continued splint the right upper extremity in brace to the right wrist. Continue to be nonweightbearing of the right upper extremity elevation to reduce swelling.
PT/OT consultation to preserve hand function however no significant recommended range of motion at this timeframe otherwise than the hand and fingers
Sling the right upper extremity along with current splint and brace
Recommend repeat x-rays in 1 week to monitor for interval displacement and for check of patient's comorbid conditions however given the extra-articular fracture pattern of her humerus and her baseline status may be recommended for definitive
nonoperative treatment. Her distal radius pattern is agreeable for nonoperative treatment at her baseline status and radiographic displacement at this time.
Orthopedic surgery will follow peripherally; if patient is still admitted within 1 week with clinical reexam and with x-rays. Discharge information placed in case patient is discharged for outpatient follow-up
[2025-02-28] MEDS: DELTASONE 10 MG PO (09:29)
[2025-02-28] MEDS: ELIQUIS 5 MG PO (09:30)
[2025-02-28] MEDS: ProAmatine 5 MG PO ×3 (09:30→17:43)
[2025-02-28] MEDS: ZYRTEC 10 MG PO (09:31)
[2025-02-28] MEDS: TYLENOL 1000 MG PO ×2 (09:31→17:44)
[2025-02-28] MEDS: PROTONIX 40 MG PO (09:31)
--- NOTE | 2025-02-28 09:59 | W.PN.CARDCBS ---
Today's Communication / Plan
-
Holding Eliquis given progressive anemia.
Anemia evaluation as per primary service
Continue to hold diuretic, Entresto, Coreg today and can consider slowly resuming over the next 24 to 48 hours if blood pressure remains stable.
Impression / Plan
-
PCP: Dr. Mittal
Audio/Video Engineer: Dr. Hobson
Impression:
Presented w/ fall, R arm pain
R humerus fracture
R distal radial fracture
Hypotension
Tachycardia
Aphasic as result of prior CVA
h/o recovered CM
s/p [employer] ICD with [employer] [place] leads
Chronic HFpEF
Paroxysmal atrial fibrillation
Chronic Eliquis AC
Mod
HTN
HLD
Hypothyroidism
COPD
h/o DVT
Echo 02/12/2024: EF 50-55%, stage I diastolic dysfunction, trace MR, moderate with peak/mean gradients 23/12 mmHg, mild TR
Plan:
Presented w/ R arm pain s/p fall at home. Presented with nausea/vomiting/diarrhea and Fever 101
Also presented with hypotension which was likely related to volume depletion/dehydration.
-As a consequence of her fall she did develop R humerus and distal radius fractures.
Plan is for non-operative management per orthopedics.
-Cardiology consulted after episode of hypotension and tachycardia on presentation. Asymptomatic by report. Appears well w/ no complaints other than arm pain currently.
Entresto and Coreg held 5/2 due to hypotension w/ BP as low as 60/42.
BP improved w/ IVFs, now 109/63 and remains asymptomatic.
Anemia may be contributing to hypotension, further evaluation as per primary service
-HFimpEF
Echo 02/12/2024: EF 50-55%
Entresto and Coreg held 5/2 due to hypotension, continue to hold for now
Has been on lasix 20mg MWF as OP. Diuretics on hold w/ hypotension.
- AGRICULTURAL CROP FARM MANAGER defibrillator in place
Interrogation of the AGRICULTURAL CROP FARM MANAGER defibrillator on 02/27/2025 shows no sustained arrhythmias, no device therapy delivered. No correlation to any events regarding her fall.
-NSVT, asymptomatic
Eventually resume BB (Coreg)
-Has known paroxysmal atrial fibrillation
Eventually resume BB (Coreg) for rate control
Eliquis had been on hold in anticipation of possible surgery. With no plans for surgery, Eliquis 5 mg BID resumed 02/27/25. Hgb now down to 8.1
Will hold Eliquis again given worsened anemia
-Anemia
Further eval as per primary service
Hold Eliquis for now
-Fever, nausea/vomiting/diarrhea eval and treatment as per primary service
Currently on emperic metronidazole while evaluation continues
Total time 52 min
HPI: Smiley is an 84 year old female with PMH of CVA w/ aphasia, recovered CM, ICD, chronic HFpEF, paroxysmal atrial fibrillation, HTN, HLD, hypothyroidism, COPD, and DVT. Presented to ER after a fall at home w/ subsequent R arm pain. She has
baseline aphasia, but is able to communicate w/ head nods and thumbs up/down. On review of H&P appears she had been struggling with nausea and vomiting w/ loose stool at home and was weak and somewhat confused per family. She was then getting into
bed and her legs gave out, resulting in fall. She tried to catch herself w/ the bedside table, but was unable to and arm twisted w/ fall. In ER, head CT negative for acute intracranial abnormality. Humerus xray revealed oblique fracture through the
proximal third of the R humerus with displacement and partial overlap of the fracture fragments. Also noted to have acute intra-articular fracture of the distal R radius w/ minimal posterior displacement of the distal fracture fragment. She was
evaluated by orthopedics and plan is for nonsurgical management. Splint in place. Cardiology consulted as she was noted to have frequent bursts of tachycardia on telemetry as well as episode of hypotension this AM resulting in rapid response. She
reports no complaints and denies chest pain, palpitations, dizziness, lightheadedness, or SOB. Only complaint is arm pain.
Progress Note - Audio/Video Engineer
Subjective
Date of Service: February 28, 2025
She is nonverbal but uses hand signals to communicate. She is able to communicate she has no chest pain shortness of breath palpitations or dizziness.
Objective
Labs:
02/28/25 06:22
02/28/25 06:22
Labs
Hgb 8.1 g/dL (12.0-16.0) L D 02/28/25 06:22
Hct 24.0 % (37.0-47.0) L 02/28/25 06:22
Plt Count 147 10^3/uL (130-400) D 02/28/25 06:22
PT 16.4 Sec (11.4-14.6) H 02/27/25 06:55
INR 1.26 02/27/25 06:55
APTT 34.4 Sec (23.4-35.0) 02/27/25 06:55
Sodium 137 mmol/L (135-145) 02/28/25 06:22
Potassium 3.6 mmol/L (3.5-5.1) 02/28/25 06:22
BUN 26 mg/dl (7-17) H 02/28/25 06:22
Creatinine 0.7 mg/dL (0.6-1.0) 02/28/25 06:22
Glucose 82 mg/dl (70-99) 02/28/25 06:22
Troponins
02/27/25
06:55
Troponin I 0.023
Vital Signs and I&O:
Vital Signs
Temp Pulse Resp BP Pulse Ox
99.0 F 72 14 102/39 97
02/28/25 07:30 02/28/25 08:24 02/28/25 08:24 02/28/25 07:30 02/28/25 08:24
Vital Signs
Temp Pulse Resp BP Pulse Ox
99.0 F 72 14 102/39 97
02/28/25 07:30 02/28/25 08:24 02/28/25 08:24 02/28/25 07:30 02/28/25 08:24
Intake & Output
02/26/25 02/27/25 02/28/25 03/01/25
06:59 06:59 06:59 06:59
Intake Total 2520 / 2520
Output Total 960 / 960
Balance 1560 / 1560
Physical Exam
Physical Exam
Elderly woman, sitting up in bed, appears comfortable. No acute distress
Regular rate and rhythm normal S1 and S2 no S3 and no S4 there is a grade 1/6 apical holosystolic murmur no rubs 1/6 basal systolic murmur as well
Lungs clear to auscultation bilaterally without wheezes rales or rhonchi
--- NOTE | 2025-02-28 10:04 | CM ---
Chart reviewed and behavioral health case manager received a hospice consult, behavioral health case manager spoke with patient and reached out to patient's daughter Ana and reviewed hospice options and they have selected [facility], referral sent to [facility].
Plan; Referral sent to [facility].
[2025-02-28] MEDS: MORPHINE SULFATE 2 MG IV ×2 (10:18→14:12)
[2025-02-28] MEDS: LR 1000 IV (10:50)
--- NOTE | 2025-02-28 11:17 | HOSPNOTE ---
Hospice referral received. Spoke to daughter Ana. She is familiar with hospice as her father was on hospice. Discussed options. Ana ideally would like to bring her mom home and likely on hospice services. Her sister is flying in this
afternoon. They would like the weekend to see how patient responds and then would like to meet with hospice in person on Sunday to review and discuss options. CM and Attending updated. More information to follow.
[2025-02-28] MEDS: FLUSH (NSS) 1 FLUSH IV ×2 (13:04→13:12)
[2025-02-28] MEDS: STERILE WATER FOR INJECTION 10 ML IV (13:05)
[2025-02-28] MEDS: ROCEPHIN 1000 MG IV (13:05)
--- NOTE | 2025-02-28 14:07 | W.PN.HOSP.TC ---
Today's Communication/Plan
-
Possible discharge home with home hospice on Sunday
Assessment / Plan
Assessment / Plan
Impression:
Patient is 84 years old with history of coronary artery disease, congestive heart failure, hypertension, paroxysmal A-fib who came to the ER with fall at home found to have right humeral fracture, distal radius fracture, STORAGE WORKER called for low blood
pressure, patient also was tachycardic on cafeteria monitor.
Seen by orthopedic, no surgical intervention.
Seen by cardiology.
Patient is DNR.
Further discussion with the family regarding goals of care, hospice consulted.
Assessment/plan:
Status post fall with right humeral fracture/right radial fracture
X-ray right humerus showed:
Oblique fracture is identified through the proximal third of the right humerus. There is displacement and partial overlap of fracture fragments.
No additional fractures are seen.
X-ray right wrist
. ACUTE INTRA-ARTICULAR FRACTURE of the DISTAL RIGHT RADIUS with minimal posterior displacement of the distal fracture fragment.
2. Severe sclerosis throughout the lunate. Diagnostic possibilities are (1) LUNATE OSTEONECROSIS ([place]ienbock disease) or (2) subchondral sclerosis from osteoarthritis.
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
4. Severe subcutaneous edema and swelling in the lateral right wrist.
CT head No intracranial hemorrhage, and no displaced skull fracture appreciated.
Fall precautions.
PT/OT consult.
Social service for discharge planning.
Ortho consulted for further recommendations, no surgical intervention.
Pain control.
5/
Discussed goal of care and pain control with the family.
Limited pain control secondary to hypertension.
Discussed comfort measures and hospice approach.
Family agreeable with hospice consult.
Possible discharge home with home hospice on Sunday.
Hypovolemic shock
STORAGE WORKER called for hypotension
Patient is asymptomatic
Patient continued to be hypotensive
As per daughter she runs low blood pressure at home.
Worsening with volume depletion secondary to diarrhea, nausea, vomiting.
Started on IV fluid and received multiple boluses
Holding carvedilol/Lasix/Entresto
Will add midodrine
Consider upgrade to IMU if persistent hypotension
02/28
Blood pressure improved
Acute gastroenteritis
Patient presented with nausea/vomiting/diarrhea
Fever 101
[address] abdomen pelvis showed:
1. Fluid within the rectum, consistent with diarrhea. No inflammatory change or significant bowel wall thickening. No evidence of intestinal obstruction.
2. Small ventral hernia near the midline in the infraumbilical region, containing several loops of small bowel. No evidence of incarceration or intestinal obstruction.
3. Mild coronary arterial calcification. Please correlate with symptoms of and risk factors for coronary artery disease, with further workup as clinically appropriate
C. difficile negative
Salmonella/Shigella/Campylobacter pending
Started empirically on Flagyl/Rocephin empirically since patient had fever
Consider Imodium if rest of infectious workup negative
Pulmonology nodule
this x-ray showes
1. 1.2 cm nodular opacity projected over the right upper lung zone, not seen on prior chest x-rays. Further evaluation is suggested with noncontrast CT of the chest.
2. Otherwise clear lungs.
Will order CT chest once blood pressure stable
02/28
Further discussion with the family, since patient will be hospice, will hold any further imaging.
Normocytic anemia.
Eliquis on hold.
Monitor H&H
Coronary artery disease
Carvedilol on hold
no chest pain
Chronic HFrEF
Currently hypervolemic.
Lasix/Entresto/carvedilol on hold
Paroxysmal Atrial Fibrillation now in A-fib with RVR
Carvedilol on hold for low blood pressure.
Resumed Eliquis.
Cardiology consulted
02/28
Eliquis on hold secondary to anemia
COPD without Acute Exacerbation
- Stable. Continue Qvar / prednisone.
Hypothyroidism
- Stable. Continue T4 supplementation.
Frontotemporal Dementia
Chronic Aphasia
- Stable. Continue morphine PRN for laryngeal spasms / dyspnea.
Code Status: DNR
DVT prophylaxis: SCDs (Eliquis on hold)
Diet: Regular diet
Family communication: Discussed with daughter and son-in-law at bedside.
Dispo: Possible discharge home with home hospice on Sunday.
Total time spent on today's encounter was 65 minutes which included time spent in counseling the patient/family regarding diagnosis and treatment plan as listed above, goals of care, and symptom management. Case was discussed with nursing staff,
specialists, and care coordinators/case management. All labs and imaging personally reviewed by me. Remainder the time spent in detailed review of previous records, lab data, imaging, and other medical provider documentation.
Anticipated Discharge: 24 - 48 hours
Subjective/Interval History
-
Date of Service: February 28, 2025
Patient seen and examined at bedside, complaining of pain in right upper extremity.
Extensive discussion with family including daughter and son-in-law regarding goal of care.
Decision made for hospice, case management consult obtained.
Possible discharge with home hospice on Sunday.
Objective Data
-
Labs:
Laboratory Results
02/28/25
06:22
WBC 7.2
Hgb 8.1 L D
Hct 24.0 L
Plt Count 147 D
Sodium 137
Potassium 3.6
Chloride 109 H
Carbon Dioxide 21 L
BUN 26 H
Creatinine 0.7
Glucose 82
Calcium 7.8 L
Vital Signs:
Vital Signs
Temp Pulse Resp BP Pulse Ox
99.0 F 72 14 102/39 97
02/28/25 07:30 02/28/25 08:24 02/28/25 08:24 02/28/25 07:30 02/28/25 09:15
I&O
02/27/25 02/28/2503/01/25
06:59 06:59 06:59
Intake Total 0 / 0
Output Total 960 / 960
Balance 1560 / 1559
Physical Exam
-
General: Appears in Distress and Pain
HEENT: Normocephalic, Atraumatic, Moist Mucous Membranes, No Ptosis, PERRLA and Nose Appears Normal
Respiratory: Rales and Non Labored Respirations
Cardiac: Irregular Rhythm and Tachycardic
Breast: Deferred by me
GI: Soft, Nontender, Nondistended and Normal Bowel Sounds
Genito-urinary: No Costovertebral Tender
Musculoskeletal: Other (Right shoulder splint)
Skin: Warm
Neuro: Awake, Alert, Oriented and Other (Nonverbal)
Psych: Calm
[2025-02-28] MEDS: DILAUDID 0.25 MG IV (20:22)
[2025-02-28] MEDS: LEXAPRO 20 MG PO (21:41)
[2025-03-01] MEDS: TYLENOL 1000 MG PO ×3 (02:42→17:31)
[2025-03-01 03:00] VITALS: BP 106/54
[2025-03-01] MEDS: FLAGYL 500 MG 100 IV ×2 (05:29→13:07)
[2025-03-01] MEDS: SYNTHROID 50 MCG PO (05:29)
[2025-03-01] MEDS: MORPHINE SULFATE 2 MG IV (05:32)
[2025-03-01 06:00] VITALS: BMI 35.6
[2025-03-01 07:30] VITALS: BP 103/80
[2025-03-01 07:47] LABS: Hematocrit 23.4 % (37.0-47.0); Hemoglobin 7.6 g/dL (12.0-16.0); Mean Corp Hgb Conc. 32.5 g/dL (33.0-37.0); Mean Corpuscular Hgb 32.3 pg (27.0-31.0); Mean Corpuscular Volume 99.6 fL (81.0-99.0); Mean Platelet Volume 10.5 fL (7.4-10.4); Platelet Count 165 10^3/uL (130-400); Red Blood Cell Count 2.35 10^6/uL (4.20-5.40); White Blood Cell Count 5.9 10^3/uL (4.8-10.8)
[2025-03-01 08:03] LABS: Blood Urea Nitrogen 15 mg/dl (7-17); Calcium 8.1 mg/dl (8.4-10.2); Carbon Dioxide 25 mmol/L (22-30); Chloride 108 mmol/L (98-107); Estimated Creatinine Clearance 72 ml/min; Glucose 91 mg/dl (70-99); Potassium 3.9 mmol/L (3.5-5.1); Sodium 136 mmol/L (135-145); eGFR > 60.00
[2025-03-01] MEDS: FLOVENT 110 MCG INHALER 2 PUFF INH ×2 (08:16→19:38)
[2025-03-01] MEDS: PROTONIX 40 MG PO (08:38)
[2025-03-01] MEDS: DELTASONE 10 MG PO (08:38)
[2025-03-01] MEDS: ZYRTEC 10 MG PO (08:38)
[2025-03-01] MEDS: ProAmatine 5 MG PO ×3 (08:38→17:31)
[2025-03-01] MEDS: DILAUDID 0.5 MG IV ×3 (10:08→20:28)
[2025-03-01 11:00] VITALS: BP 105/56
--- NOTE | 2025-03-01 12:15 | W.PN.CARDCBS ---
Today's Communication / Plan
-
Continue to hold anticoagulation given progressive worsening of her anemia
Continue to hold diuretic, Entresto, and Coreg given progressive worsening of anemia along with hypotension which has improved somewhat but not back to baseline blood pressure yet
Impression / Plan
-
PCP: Dr. Mittal
Gas Shovel Operator: Dr. Hobson
Impression:
Presented w/ fall, R arm pain
R humerus fracture
R distal radial fracture
Hypotension
Tachycardia
Aphasic as result of prior CVA
h/o recovered CM
s/p [place] [employer] ICD with [employer] leads
Chronic HFpEF
Paroxysmal atrial fibrillation
Chronic Eliquis AC
Mod
HTN
HLD
Hypothyroidism
COPD
h/o DVT
Echo 02/12/2024: EF 50-55%, stage I diastolic dysfunction, trace MR, moderate with peak/mean gradients 23/12 mmHg, mild TR
Plan:
Presented w/ R arm pain s/p fall at home. Presented with nausea/vomiting/diarrhea and Fever 101
Also presented with hypotension which was likely related to volume depletion/dehydration.
-As a consequence of her fall she did develop R humerus and distal radius fractures.
Plan is for non-operative management per orthopedics.
-Cardiology consulted after episode of hypotension and tachycardia on presentation. Asymptomatic by report. Appears well w/ no complaints other than arm pain currently.
Entresto and Coreg held 5/2 due to hypotension w/ BP as low as 60/42.
BP improved w/ IVFs, now 109/63 and remains asymptomatic.
Anemia may be contributing to hypotension, further evaluation as per primary service
-HFimpEF
Echo 02/12/2024: EF 50-55%
Entresto and Coreg held 5/2 due to hypotension, continue to hold for now
Has been on lasix 20mg MWF as OP. Diuretics on hold w/ hypotension.
- RECRUITING MANAGER defibrillator in place
Interrogation of the RECRUITING MANAGER defibrillator on 02/27/2025 shows no sustained arrhythmias, no device therapy delivered. No correlation to any events regarding her fall.
-NSVT, asymptomatic
Eventually resume BB (Coreg)
-Has known paroxysmal atrial fibrillation
Eventually resume BB (Coreg) for rate control
Eliquis had been on hold in anticipation of possible surgery. With no plans for surgery, Eliquis 5 mg BID resumed 02/27/25. Hgb now down to 7.6
Hold Eliquis given worsened anemia
-Anemia
Further eval as per primary service
Hold Eliquis for now
-Fever, nausea/vomiting/diarrhea eval and treatment as per primary service
Currently on emperic metronidazole while evaluation continues
Total time 50 min
HPI: Smiley is an 84 year old female with PMH of CVA w/ aphasia, recovered CM, ICD, chronic HFpEF, paroxysmal atrial fibrillation, HTN, HLD, hypothyroidism, COPD, and DVT. Presented to ER after a fall at home w/ subsequent R arm pain. She has
baseline aphasia, but is able to communicate w/ head nods and thumbs up/down. On review of H&P appears she had been struggling with nausea and vomiting w/ loose stool at home and was weak and somewhat confused per family. She was then getting into
bed and her legs gave out, resulting in fall. She tried to catch herself w/ the bedside table, but was unable to and arm twisted w/ fall. In ER, head CT negative for acute intracranial abnormality. Humerus xray revealed oblique fracture through the
proximal third of the R humerus with displacement and partial overlap of the fracture fragments. Also noted to have acute intra-articular fracture of the distal R radius w/ minimal posterior displacement of the distal fracture fragment. She was
evaluated by orthopedics and plan is for nonsurgical management. Splint in place. Cardiology consulted as she was noted to have frequent bursts of tachycardia on telemetry as well as episode of hypotension this AM resulting in rapid response. She
reports no complaints and denies chest pain, palpitations, dizziness, lightheadedness, or SOB. Only complaint is arm pain.
Progress Note - Gas Shovel Operator
Subjective
Date of Service: March 01, 2025
She is nonverbal but uses hand signals and describes that she has no chest pain and no shortness of breath.
Objective
Labs:
03/01/25 07:00
03/01/25 07:00
Labs
Hgb 7.6 g/dL (12.0-16.0) L 03/01/25 07:00
Hct 23.4 % (37.0-47.0) L 03/01/25 07:00
Plt Count 165 10^3/uL (130-400) 03/01/25 07:00
PT 16.4 Sec (11.4-14.6) H 02/27/25 06:55
INR 1.26 02/27/25 06:55
APTT 34.4 Sec (23.4-35.0) 02/27/25 06:55
Sodium 136 mmol/L (135-145) 03/01/25 07:00
Potassium 3.9 mmol/L (3.5-5.1) 03/01/25 07:00
BUN 15 mg/dl (7-17) 03/01/25 07:00
Creatinine 0.6 mg/dL (0.6-1.0) 03/01/25 07:00
Glucose 91 mg/dl (70-99) 03/01/25 07:00
Troponins
02/27/25
06:55
Troponin I 0.023
Vital Signs and I&O:
Vital Signs
Temp Pulse Resp BP Pulse Ox
98.8 F 71 16 103/80 96
03/01/25 07:30 03/01/25 08:20 03/01/25 08:20 03/01/25 07:30 03/01/25 08:45
Vital Signs
Temp Pulse Resp BP Pulse Ox
98.8 F 71 16 103/80 96
03/01/25 07:30 03/01/25 08:20 03/01/25 08:20 03/01/25 07:30 03/01/25 08:45
Intake & Output
02/27/25 02/28/25 03/01/25 03/02/25
06:59 06:59 06:59 06:59
Intake Total 2520 / 2520 1580 / 1580
Output Total 960 / 960 700 / 700
Balance 1560 / 1560 880 / 880
Physical Exam
Physical Exam
Elderly woman, sitting up in bed, appears comfortable. No acute distress
Regular rate and rhythm normal S1 and S2 no S3 and no S4 there is a grade 1/6 apical holosystolic murmur no rubs 1/6 basal systolic murmur as well
Lungs clear to auscultation bilaterally without wheezes rales or rhonchi
[2025-03-01] MEDS: FLUSH (NSS) IV ×2 (13:07)
[2025-03-01] MEDS: STERILE WATER FOR INJECTION 10 ML IV (13:10)
[2025-03-01] MEDS: ROCEPHIN 1000 MG IV (13:10)
--- NOTE | 2025-03-01 13:30 | W.PN.HOSP.TC ---
Today's Communication/Plan
-
Hospice meeting Sunday
Assessment / Plan
Assessment / Plan
Impression:
Patient is 84 years old with history of coronary artery disease, congestive heart failure, hypertension, paroxysmal A-fib who came to the ER with fall at home found to have right humeral fracture, distal radius fracture, AIR CONDITIONING TECHNICIAN called for low blood
pressure, patient also was tachycardic on media monitor.
Seen by orthopedic, no surgical intervention.
Seen by cardiology.
Patient is DNR.
Further discussion with the family regarding goals of care, hospice consulted.
Patient tested positive for norovirus
Assessment/plan:
Status post fall with right humeral fracture/right radial fracture
X-ray right humerus showed:
Oblique fracture is identified through the proximal third of the right humerus. There is displacement and partial overlap of fracture fragments.
No additional fractures are seen.
X-ray right wrist
. ACUTE INTRA-ARTICULAR FRACTURE of the DISTAL RIGHT RADIUS with minimal posterior displacement of the distal fracture fragment.
2. Severe sclerosis throughout the lunate. Diagnostic possibilities are (1) LUNATE OSTEONECROSIS ([place] disease) or (2) subchondral sclerosis from osteoarthritis.
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
4. Severe subcutaneous edema and swelling in the lateral right wrist.
CT head No intracranial hemorrhage, and no displaced skull fracture appreciated.
Fall precautions.
PT/OT consult.
Social service for discharge planning.
Ortho consulted for further recommendations, no surgical intervention.
Pain control.
02/28
Discussed goal of care and pain control with the family.
Limited pain control secondary to hypertension.
Discussed comfort measures and hospice approach.
Family agreeable with hospice consult.
Possible discharge home with home hospice on Sunday.
03/01
Hospice consulted.
Family meeting Sunday
Hypovolemic shock
AIR CONDITIONING TECHNICIAN called for hypotension
Patient is asymptomatic
Patient continued to be hypotensive
As per daughter she runs low blood pressure at home.
Worsening with volume depletion secondary to diarrhea, nausea, vomiting.
Started on IV fluid and received multiple boluses
Holding carvedilol/Lasix/Entresto
Will add midodrine
Consider upgrade to IMU if persistent hypotension
02/28
Blood pressure improved
Acute gastroenteritis (norovirus)
Patient presented with nausea/vomiting/diarrhea
Fever 101
[address] abdomen pelvis showed:
1. Fluid within the rectum, consistent with diarrhea. No inflammatory change or significant bowel wall thickening. No evidence of intestinal obstruction.
2. Small ventral hernia near the midline in the infraumbilical region, containing several loops of small bowel. No evidence of incarceration or intestinal obstruction.
3. Mild coronary arterial calcification. Please correlate with symptoms of and risk factors for coronary artery disease, with further workup as clinically appropriate
C. difficile negative
Salmonella/Shigella/Campylobacter pending
Started empirically on Flagyl/Rocephin empirically since patient had fever
Since tested positive for norovirus, Flagyl and Rocephin discontinued
Pulmonology nodule
this x-ray showes
1. 1.2 cm nodular opacity projected over the right upper lung zone, not seen on prior chest x-rays. Further evaluation is suggested with noncontrast CT of the chest.
2. Otherwise clear lungs.
Will order CT chest once blood pressure stable
02/28
Further discussion with the family, since patient will be hospice, will hold any further imaging.
Normocytic anemia.
No sign of bleeding
Eliquis on hold.
Monitor H&H
Coronary artery disease
Carvedilol on hold
no chest pain
Chronic HFrEF
Currently hypervolemic.
Lasix/Entresto/carvedilol on hold
Paroxysmal Atrial Fibrillation now in A-fib with RVR
Carvedilol on hold for low blood pressure.
Initially resumed Eliquis.
Cardiology consulted
02/28
Eliquis on hold secondary to anemia
COPD without Acute Exacerbation
- Stable. Continue Qvar / prednisone.
Hypothyroidism
- Stable. Continue T4 supplementation.
Frontotemporal Dementia
Chronic Aphasia
- Stable. Continue morphine PRN for laryngeal spasms / dyspnea.
Code Status: DNR
DVT prophylaxis: SCDs (Eliquis on hold)
Diet: Regular diet
Family communication: Discussed with daughter and son-in-law at bedside.
Discussed in multiple occasions in the phone and at bedside
Dispo: Hospice meeting on Sunday, options to discharge to rehab facility and convert to hospice versus home with home hospice on Sunday.
Total time spent on today's encounter was 65 minutes which included time spent in counseling the patient/family regarding diagnosis and treatment plan as listed above, goals of care, and symptom management. Case was discussed with nursing staff,
specialists, and care coordinators/case management. All labs and imaging personally reviewed by me. Remainder the time spent in detailed review of previous records, lab data, imaging, and other medical provider documentation.
Anticipated Discharge: Within 24 hours
Subjective/Interval History
-
Date of Service: March 01, 2025
Patient seen and examined at bedside.
Complaining of lower extremity pain.
Morphine switched to Dilaudid.
Discussed with sister at bedside.
Tested positive for norovirus.
Objective Data
-
Labs:
Laboratory Results
03/01/25
07:00
WBC 5.9
Hgb 7.6 L
Hct 23.4 L
Plt Count 165
Sodium 136
Potassium 3.9
Chloride 108 H
Carbon Dioxide 25
BUN 15
Creatinine 0.6
Glucose 91
Calcium 8.1 L
Vital Signs:
Vital Signs
Temp Pulse Resp BP Pulse Ox
98.8 F 68 20 105/56 97
03/01/25 11:00 03/01/25 11:00 03/01/25 11:00 03/01/25 11:00 03/01/25 11:00
I&O
02/28/25 03/01/25 03/02/25
06:59 06:59 06:59
Intake Total 2520 / 2520 1580 / 1580
Output Total 960 / 960 700 / 700
Balance 1560 / 1560 880 / 880
Physical Exam
-
General: Appears in Distress and Pain
HEENT: Normocephalic, Atraumatic, Moist Mucous Membranes, No Ptosis, PERRLA and Nose Appears Normal
Respiratory: Rales and Non Labored Respirations
Cardiac: Irregular Rhythm and Tachycardic
Breast: Deferred by me
GI: Soft, Nontender, Nondistended and Normal Bowel Sounds
Genito-urinary: No Costovertebral Tender
Musculoskeletal: Other (Right shoulder splint)
Skin: Warm
Neuro: Awake, Alert, Oriented and Other (Nonverbal)
Psych: Calm
Data Reviewed
-
Diagnostic Radiology: Image personally visualized and interpreted and Report Reviewed by me
CT Scan: Image personally visualized and interpreted and Report Reviewed by me
Ultrasound: Image personally visualized and interpreted and Report Reviewed by me
MRI: Image personally visualized and interpreted and Report Reviewed by me
Medical Tests (Nuc Med, Echo etc): Image personally visualized and interpreted and Report Reviewed by me
Labs: Labs Reviewed by me
Old Records: Reviewed
[2025-03-01 15:00] VITALS: BP 108/60
[2025-03-01 19:55] VITALS: BP 100/68
[2025-03-01] MEDS: LEXAPRO 20 MG PO (21:45)
[2025-03-01 23:39] VITALS: BP 103/59
[2025-03-02] VITALS (7 sets, daily range): BP systolic 100–128; BP diastolic 57–68; PULSE 68; O2SAT 97; BMI 34.6
[2025-03-02] MEDS: TYLENOL 1000 MG PO ×3 (01:36→17:24)
[2025-03-02] MEDS: PROTONIX 40 MG PO (07:48)
[2025-03-02] MEDS: DELTASONE 10 MG PO (07:48)
[2025-03-02] MEDS: DILAUDID 0.5 MG IV ×4 (07:48→21:17)
[2025-03-02] MEDS: ProAmatine 5 MG PO ×3 (07:48→17:24)
[2025-03-02] MEDS: SYNTHROID 50 MCG PO (07:48)
[2025-03-02] MEDS: ZYRTEC 10 MG PO (07:48)
[2025-03-02] MEDS: FLOVENT 110 MCG INHALER 2 PUFF INH ×2 (07:55→19:30)
[2025-03-02 07:59] LABS: Blood Urea Nitrogen 10 mg/dl (7-17); Calcium 8.2 mg/dl (8.4-10.2); Carbon Dioxide 26 mmol/L (22-30); Chloride 108 mmol/L (98-107); Estimated Creatinine Clearance 71 ml/min; Glucose 87 mg/dl (70-99); Potassium 3.8 mmol/L (3.5-5.1); Sodium 138 mmol/L (135-145); eGFR > 60.00
--- NOTE | 2025-03-02 08:20 | W.PN.HOSP.TC ---
Addendum entered and electronically signed by Ruslan Vargas MD 03/02/25 15:42:
I saw and evaluated the patient. I reviewed the resident�s note and agree with findings and plan as documented in the resident�s note except for changes in my documentation.
84-year-old came to the ER with a fall at home
Echo 02/12/2024-EF 50 to 55%, stage I diastolic dysfunction, trace MR, moderate , mild TR
CT abdomen pelvis-fluid in the rectum, small ventral hernia with no evidence of obstruction, mild coronary artery calcification
Aphasia
Right arm on immobilizer
Cardiovascular system S1-S2 appreciated, systolic murmur at aortic area
Abdomen soft and nontender
No pedal edema
# Status post fall with traumatic right humeral fracture/right radial fracture
CT head without any fracture or hemorrhage
Conservative/nonsurgical management recommended by orthopedics
Pain control
PT OT evaluation and fall precautions
# Hypovolemic shock
Responded to midodrine
Restart Coreg, continue to hold Lasix/Entresto
# Acute gastroenteritis from norovirus
# Abnormal urinalysis-contaminated specimen with a lot of squamous/urothelial cells-note that the patient also has diarrhea
# Pulmonary nodule 1.2 cm opacity in the right upper lobe-outpatient workup if family desires to pursue
# Normocytic anemia-Eliquis on hold. No evident source of bleeding. Patient has diarrhea therefore heme testing will not be accurate. CT abdomen and pelvis and physical exam of bilateral upper thighs with no evidence of bleeding.
# Chronic HFrEF /coronary disease/ICD- Holding Lasix, Entresto. Interrogation of defibrillator on 02/27/2025-no arrhythmias. Coreg restarted
# Paroxysmal atrial fibrillation with RVR-Coreg restarted, Eliquis on hold
# Moderate Aortic Stenosis
# COPD-without exacerbation-continue Qvar or equivalent and prednisone
# Hypothyroidism-continue levothyroxine
# Frontotemporal Dementia with chronic aphasia
# Moderate to severe degenerative disc disease C Spine
# History of DVT-Holding Eliquis secondary to anemia
# DVT prophylaxis-Holding Eliquis
# DNR status
Spoke to patient's daughter in detail. She wants to see how patient does in physical therapy if she has a potential for getting out of bed and walking again she would not want to do go on hospice. She wants her to go to rehab if that is the case.
She does not want any workup for the lung nodule at this point. We discussed about anemia and also holding Eliquis. Also about heart failure medicines being on hold.
Discussed with hospice today. On hold as of now.
Time spent over 50 min
Part of this note was created using voice recognition system. Occasional wrong word or��sound alike� substitutions may have inadvertently occurred due to the inherent limitations of voice recognition software. If noted kindly bring it to my
attention for correction.
Original Note:
Today's Communication/Plan
-
- PT/OT eval
- continued hospice discussion after PT/OT
Assessment / Plan
Assessment / Plan
Assessment:
84yo F h CHF, defibrillator, pacer, [place], expressive aphasia who presented to [facility] ED for a closed R humeral fx. Witnessed fall, where her RUE was twisted behind her back at an odd angle.
Plan:
S/p fall w right humeral fx / R radial fx
- XR humerus: Oblique fracture is identified through the proximal third of the right humerus. There is displacement and partial overlap of fracture fragments.
- XR wrist: ACUTE INTRA-ARTICULAR FRACTURE of the DISTAL RIGHT RADIUS with minimal posterior displacement of the distal fracture fragment.
- CT head: no acute intracranial abnormalities
- fall precautions
- appreciate ortho input - conservative management
- pain control
- PT/OT
Goals of care discussion
- pain control limited secondary to HoTN
- hospice input appreciated
- daughters would like to speak to PT/OT about prognosis
Hypovolemic shock
- pressures reportedly soft at home
- worsened w volume depletion secondary to N/V/D
- IVF
- hold home carvedilol, entresto, lasix
- midodrine
Acute gastroenteritis secondary to norovirus
- presented w N/V/D
- febrile
- CT abdo/pelvis: diarrhea, no incarcerated hernia/obstruction
- C diff neg
- Norovirus positive, abx dc'ed
Pulmonary nodule
- CXR: 1.2 cm nodular opacity projected over the right upper lung zone, not seen on prior chest x-rays. Further evaluation is suggested with noncontrast CT of the chest.
- recommend outpt CT if not pursuing hospice
Normocytic anemia w/o signs of bleeding
- hold eliquis
- monitor cbc
- Hb improving
CAD
- holding home coreg
- denies CP
Chronic HFpEF
- LVEF 50-55%
- hypervolemic
- holding home lasix, entresto, carvedilol
Paroxysmal Afib
Afib w RVR
- hold carvedilole secondary to HoTN
- appreciate cardiology input
- eliquis on hold secondary to anemia
COPD w/o acute exacerbation
- stable
- cont home Qvar, prednisone
Hypothyroidism
- stable
- cont home levothyroxine
Frontotemporal dementia
Chronic aphasia
- stable
- prn morphine for laryngeal spasms/dyspnea
DVT prophylaxis: SCDs (Eliquis on hold)
Diet: Regular diet
Code status: DNR
Anticipated Discharge: Within 24 hours
Subjective/Interval History
-
Date of Service: March 02, 2025
84yo F pmh CHF, defibrillator, pacer, [place], expressive aphasia who presented to [facility] ED for a closed R humeral fx. Witnessed fall, where her RUE was twisted behind her back at an odd angle. Daughters are waiting to speak w PT/OT about pt's prognosis
before deciding on hospice. Pt denies pain, CP, STEAR[place], N/V/D, SOB.
Objective Data
-
Labs:
Laboratory Results
03/02/25
07:05
Sodium 138
Potassium 3.8
Chloride 108 H
Carbon Dioxide 26
BUN 10
Creatinine 0.6
Glucose 87
Calcium 8.2 L
Vital Signs:
Vital Signs
Temp Pulse Resp BP Pulse Ox
98.3 F 87 18 125/68 96
03/02/25 07:25 03/02/25 07:25 03/02/25 07:25 03/02/25 07:25 03/02/25 07:25
I&O
03/01/25 03/02/25 03/03/25
06:59 06:59 06:59
Intake Total 1580 / 1580 820 / 820
Output Total 700 / 700 850 / 850
Balance 880 / 880 -30 / -30
Review of Systems
-
Unable to obtain full review of systems at this time due to: Patient Non-verbal
History Source: Patient
Constitutional: Reports No Symptoms
EENT: Reports No Symptoms Reported
Respiratory: Reports No Symptoms
Cardiac: Reports No Symptoms
Abdomen/GI: Reports No Symptoms
Physical Exam
-
General: Well Developed, Well Nourished, No Apparent Distress and Comfortable
HEENT: Normocephalic, Atraumatic, Moist Mucous Membranes and Anicteric
Respiratory: Clear to Auscultation
Cardiac: Regular Rhythm, S1/S2 and Murmur
GI: Soft, Nontender, Nondistended and Normal Bowel Sounds
Musculoskeletal: No Clubbing, No Cyanosis and No Edema
Skin: Warm, Dry and Other (good color)
Neuro: Awake, Alert and Oriented
Psych: Calm
--- NOTE | 2025-03-02 09:34 | W.PN.CARDCBS ---
Today's Communication / Plan
-
Hypotension resolved
Resume Coreg
Continue to hold Entresto and Lasix
Eliquis on hold with anemia
Hospice is being discussed
Impression / Plan
-
PCP: Dr. Mittal
Geospatial Intelligence Analyst: Dr. Hobson
Impression:
Presented w/ fall, R arm pain
R humerus fracture/nonoperative management
R distal radial fracture/nonoperative management
Hypotension
Tachycardia
Aphasic as result of prior CVA
h/o recovered CM
s/p [employer] ICD with [place] leads
Chronic HFpEF
Paroxysmal atrial fibrillation
Chronic Eliquis AC
Mod
HTN
HLD
Hypothyroidism
COPD
h/o DVT
Echo 02/12/2024: EF 50-55%, stage I diastolic dysfunction, trace MR, moderate with peak/mean gradients 23/12 mmHg, mild TR
Plan:
Hypotension has resolved
Will resume Coreg and continue to hold Entresto
Eventually resume Lasix Sunday dosing which she was on as an outpatient
Interrogation of the [employer] defibrillator on 02/27/2025 shows no sustained arrhythmias, no device therapy delivered. No correlation to any events regarding her fall.
Eliquis on hold with worsening anemia
Hospice discussion being held
HPI: Smiley is an 84 year old female with PMH of CVA w/ aphasia, recovered CM, ICD, chronic HFpEF, paroxysmal atrial fibrillation, HTN, HLD, hypothyroidism, COPD, and DVT. Presented to ER after a fall at home w/ subsequent R arm pain. She has
baseline aphasia, but is able to communicate w/ head nods and thumbs up/down. On review of H&P appears she had been struggling with nausea and vomiting w/ loose stool at home and was weak and somewhat confused per family. She was then getting into
bed and her legs gave out, resulting in fall. She tried to catch herself w/ the bedside table, but was unable to and arm twisted w/ fall. In ER, head CT negative for acute intracranial abnormality. Humerus xray revealed oblique fracture through the
proximal third of the R humerus with displacement and partial overlap of the fracture fragments. Also noted to have acute intra-articular fracture of the distal R radius w/ minimal posterior displacement of the distal fracture fragment. She was
evaluated by orthopedics and plan is for nonsurgical management. Splint in place. Cardiology consulted as she was noted to have frequent bursts of tachycardia on telemetry as well as episode of hypotension this AM resulting in rapid response. She
reports no complaints and denies chest pain, palpitations, dizziness, lightheadedness, or SOB. Only complaint is arm pain.
Progress Note - Geospatial Intelligence Analyst
Subjective
Date of Service: March 02, 2025
No complaints
Objective
Labs:
03/01/25 07:00
03/02/25 07:05
Labs
Hgb 7.6 g/dL (12.0-16.0) L 03/01/25 07:00
Hct 23.4 % (37.0-47.0) L 03/01/25 07:00
Plt Count 165 10^3/uL (130-400) 03/01/25 07:00
PT 16.4 Sec (11.4-14.6) H 02/27/25 06:55
INR 1.26 02/27/25 06:55
APTT 34.4 Sec (23.4-35.0) 02/27/25 06:55
Sodium 138 mmol/L (135-145) 03/02/25 07:05
Potassium 3.8 mmol/L (3.5-5.1) 03/02/25 07:05
BUN 10 mg/dl (7-17) 03/02/25 07:05
Creatinine 0.6 mg/dL (0.6-1.0) 03/02/25 07:05
Glucose 87 mg/dl (70-99) 03/02/25 07:05
Vital Signs and I&O:
Vital Signs
Temp Pulse Resp BP Pulse Ox
98.3 F 87 18 125/68 96
03/02/25 07:25 03/02/25 07:25 03/02/25 07:25 03/02/25 07:25 03/02/25 07:25
Vital Signs
Temp Pulse Resp BP Pulse Ox
98.3 F 87 18 125/68 96
03/02/25 07:25 03/02/25 07:25 03/02/25 07:25 03/02/25 07:25 03/02/25 07:25
Intake & Output
02/28/25 03/01/25 03/02/25 03/03/25
06:59 06:59 06:59 06:59
Intake Total 2520 / 2520 1580 / 1580 820 / 820
Output Total 960 / 960 700 / 700 850 / 850
Balance 1560 / 1560 880 / 880 -30 / -30
Physical Exam
Physical Exam
General: Well developed, well nourished in NAD.
Neck: Supple, no JVD, HJR, carotids +2 B/L, no bruits bilaterally.
Heart: Non displaced PMI, RRR, no murmurs, No S3, S4, no rubs.
Lungs: Clear to auscultation bilaterally, no wheeze, rhonchi, rubs bilaterally,
normal expiratory phase.
Extremities: No clubbing, cyanosis or edema bilaterally.
Neuro: Grossly nonfocal, awake, alert and oriented x3.
--- NOTE | 2025-03-02 09:45 | HOSPNOTE ---
Spoke with oliva Perez at length about hospice and the philosophy. The plan will be to get a PT/OT evaluation done and then determine if rehab is needed. The daughters will not return to [facility] since they had an awful experience. If the
patient qualifies for rehab then the daughters will agree to rehab and then when hospice is needed bring the patient home for hospice services. The daughters have my direct contact information. The resident updated with plan and will place order for
therapy evaluation.
--- NOTE | 2025-03-02 11:45 | CM ---
CM reviewed chart, patient seen bedside, gave thumbs up, no family present at this time. CM reviewed with Hospice, family would like to try for rehab, will need PT/OT orders and auth. CM spoke with patients daughter, Ana, discussed fearful of
sending patient to SNF due to patients experience at last rehab. Daughter reports at this point she wants to know if patient is able to easily transfer or if patient is essentially bedbound. Daughter would be interested in [facility],
will confirm facility accepts patients insurance. Daughter would like to tour facility prior to discharging to any facility. CM will watch for therapy evals, will send referrals.
Plan; will await PT/OT orders, will need auth once accepting facility found, first choice [facility]
[2025-03-02 13:49] LABS: Hematocrit 24.3 % (37.0-47.0); Mean Corp Hgb Conc. 32.9 g/dL (33.0-37.0); Mean Corpuscular Hgb 32.7 pg (27.0-31.0); Mean Corpuscular Volume 99.2 fL (81.0-99.0); Mean Platelet Volume 9.6 fL (7.4-10.4); Platelet Count 202 10^3/uL (130-400); Red Blood Cell Count 2.45 10^6/uL (4.20-5.40); Red Cell Dist. Width 12.8 % (11.5-14.5); White Blood Cell Count 6.5 10^3/uL (4.8-10.8)
[2025-03-02 16:26] LABS: Iron 49 ug/dl (37-170)
[2025-03-02 16:35] LABS: Percent Saturation 23 % (20-50); Total Iron Binding Capacity 209 ug/dl (265-497)
[2025-03-02 17:25] LABS: Ferritin 98.4 ng/ml (11.1-264.0)
[2025-03-02 17:39] LABS: Vitamin B12 697 pg/ml (239-931)
[2025-03-02] MEDS: COREG 3.125 MG PO (21:16)
[2025-03-02] MEDS: LEXAPRO 20 MG PO (21:17)
[2025-03-03] VITALS (7 sets, daily range): BP systolic 98–123; BP diastolic 47–67; PULSE 65; O2SAT 97; BMI 34.9
[2025-03-03] MEDS: TYLENOL PO (03:55)
[2025-03-03] MEDS: SYNTHROID 50 MCG PO (05:43)
[2025-03-03] MEDS: DILAUDID 0.5 MG IV ×3 (06:37→20:27)
[2025-03-03] MEDS: FLOVENT 110 MCG INHALER 2 PUFF INH ×2 (07:41→19:54)
--- NOTE | 2025-03-03 08:14 | PN.CDI ---
Addendum entered and electronically signed by Ruslan Vargas MD 03/03/25 18:01:
I cannot control what cardiology writes.
Pt has an ICD and H/O EF 43 % so has HFREF
Original Note:
CDI
- -
CDI:
Physician Documentation Request
Admit Date: 02/27/25 06:03
Dear Doctor,
Please review the following and provide your response in the progress notes.
Clinical Indicators:
- 03/02 Cardiology 'Chronic HFpEF'
- 03/02 PN indicates both Chronic HFrEF' and HFpEF
- 02/12/24 Echo EF 50-55%
In an attempt to clarify potentially conflicting documentation, please clarify the type of CHF
Chronic HFpEF
Chronic HFrEF
Other (please specify)
Use of terms such as suspected, likely, concern for, or probable (associated with a specific diagnosis that is being evaluated, monitored, or treated as if it exists) are acceptable and can be coded in the inpatient setting, when documented at the
time of discharge.
Thank you,
Sparkle Poon RN
CDI Specialist
Please use your independent medical judgment in providing your response.
[2025-03-03] MEDS: DELTASONE 10 MG PO (08:25)
[2025-03-03] MEDS: TYLENOL 1000 MG PO ×2 (08:28→17:40)
[2025-03-03] MEDS: COREG 3.125 MG PO ×2 (08:28→20:20)
[2025-03-03] MEDS: ZYRTEC 10 MG PO (08:29)
[2025-03-03] MEDS: PROTONIX 40 MG PO (08:29)
[2025-03-03] MEDS: ProAmatine 5 MG PO ×3 (08:29→17:40)
--- NOTE | 2025-03-03 08:30 | W.PN.HOSP.TC ---
Today's Communication/Plan
-
- d/c planning
- restart home meds
Assessment / Plan
Assessment / Plan
Assessment:
84yo F pmh CHF, defibrillator, pacer, [place], expressive aphasia who presented to [facility] ED for a closed R humeral fx. Witnessed fall, where her RUE was twisted behind her back at an odd angle.
Plan:
S/p fall w right humeral fx / R radial fx
- XR humerus: Oblique fracture is identified through the proximal third of the right humerus. There is displacement and partial overlap of fracture fragments.
- XR wrist: ACUTE INTRA-ARTICULAR FRACTURE of the DISTAL RIGHT RADIUS with minimal posterior displacement of the distal fracture fragment.
- CT head: no acute intracranial abnormalities
- fall precautions
- appreciate ortho input - conservative management
- pain control
- PT/OT
Goals of care discussion
- pain control limited secondary to HoTN
- hospice input appreciated
- daughters would like to speak to PT/OT about prognosis
Hypovolemic shock
- pressures reportedly soft at home
- worsened w volume depletion secondary to N/V/D
- IVF
- hold home carvedilol, entresto, lasix
- midodrine
Acute gastroenteritis secondary to norovirus
- presented w N/V/D
- febrile
- CT abdo/pelvis: diarrhea, no incarcerated hernia/obstruction
- C diff neg
- Norovirus positive, abx dc'ed
Pulmonary nodule
- CXR: 1.2 cm nodular opacity projected over the right upper lung zone, not seen on prior chest x-rays. Further evaluation is suggested with noncontrast CT of the chest.
- recommend outpt CT if not pursuing hospice
Normocytic anemia w/o signs of bleeding
- hold eliquis
- monitor cbc
- Hb improving
CAD
- holding home coreg
- denies CP
Chronic HFpEF
- LVEF 50-55%, indicating HFpEF
- hypervolemic
- holding home lasix, entresto, carvedilol
Paroxysmal Afib
Afib w RVR
- hold carvedilole secondary to HoTN
- appreciate cardiology input
- eliquis on hold secondary to anemia
COPD w/o acute exacerbation
- stable
- cont home Qvar, prednisone
Hypothyroidism
- stable
- cont home levothyroxine
Frontotemporal dementia
Chronic aphasia
- stable
- prn morphine for laryngeal spasms/dyspnea
DVT prophylaxis: SCDs (Eliquis on hold)
Diet: Regular diet
Code status: DNR
Anticipated Discharge: 24 - 48 hours
Subjective/Interval History
-
Date of Service: March 03, 2025
PT still recommending acute rehab 1-2hr/day. Waiting on SNF placement
Objective Data
-
Labs:
Laboratory Results
03/03/25
06:00
WBC Pending
Hgb Pending
Hct Pending
Plt Count Pending
Sodium Pending
Potassium Pending
Chloride Pending
Carbon Dioxide Pending
BUN Pending
Creatinine Pending
Glucose Pending
Calcium Pending
Vital Signs:
Vital Signs
Temp Pulse Resp BP Pulse Ox
98.3 F 70 15 123/60 95
03/03/25 07:22 03/03/25 07:45 03/03/25 07:45 03/03/25 07:22 03/03/25 07:45
I&O
03/02/25 03/03/25 03/04/25
06:59 06:59 06:59
Intake Total 820 / 820 840 / 840
Output Total 850 / 850 950 / 950
Balance -30 / -30 -110 / -110
Review of Systems
-
Unable to obtain full review of systems at this time due to: Patient Non-verbal
Physical Exam
-
General: Well Developed, Well Nourished, No Apparent Distress and Comfortable
HEENT: Normocephalic and Atraumatic
Respiratory: Clear to Auscultation
Cardiac: Regular Rhythm and S1/S2
GI: Soft, Nontender, Nondistended and Normal Bowel Sounds
Musculoskeletal: No Clubbing, No Cyanosis and No Edema
Skin: Warm and Dry
Neuro: Awake and Alert
Psych: Calm
[2025-03-03] MEDS: ROXICODONE 5 MG PO ×2 (09:34→14:44)
[2025-03-03 10:05] LABS: Hematocrit 24.2 % (37.0-47.0); Mean Corp Hgb Conc. 33.1 g/dL (33.0-37.0); Mean Corpuscular Hgb 33.3 pg (27.0-31.0); Mean Corpuscular Volume 100.8 fL (81.0-99.0); Mean Platelet Volume 10.1 fL (7.4-10.4); Platelet Count 235 10^3/uL (130-400); Red Cell Dist. Width 12.8 % (11.5-14.5); White Blood Cell Count 6.2 10^3/uL (4.8-10.8)
[2025-03-03 10:24] LABS: Blood Urea Nitrogen 9 mg/dl (7-17); Calcium 8.4 mg/dl (8.4-10.2); Carbon Dioxide 29 mmol/L (22-30); Chloride 106 mmol/L (98-107); Estimated Creatinine Clearance 61 ml/min; Glucose 83 mg/dl (70-99); Potassium 3.7 mmol/L (3.5-5.1); Sodium 138 mmol/L (135-145); eGFR > 60.00
[2025-03-03] MEDS: FLUSH (NSS) 1 FLUSH IV (12:07)
--- NOTE | 2025-03-03 12:31 | CM ---
CM reviewed chart, patient seen bedside. Phone call to patients daughter Ana to discuss [facility] unable to accept patient. Additional facilities reviewed with daughter on phone (via Medicare.gov) rating, agreeable to referrals to
[facility], and [facility]. Daughter voices concern for patient to discharge to SNF after previous experience and would like to tour facility prior to d.c. CM will call daughter when facilities respond regarding ability to
accept. CM will continue to follow for all discharge planning needs.
Plan; additional referrals placed, will need auth once accepting facility found
--- NOTE | 2025-03-03 14:21 | W.PN.UPDATE ---
Update Note
Progress Note Update
I saw and evaluated the patient. I reviewed the resident�s note and agree with findings and plan as documented in the resident�s note except for changes in my documentation.
84-year-old came to the ER with a fall at home
Echo 02/12/2024-EF 50 to 55%, stage I diastolic dysfunction, trace MR, moderate , mild TR.
CT abdomen pelvis-fluid in the rectum, small ventral hernia with no evidence of obstruction, mild coronary artery calcification.
Aphasia
Right arm on immobilizer
Cardiovascular system S1-S2 appreciated, systolic murmur at aortic area
Abdomen soft and nontender
No pedal edema
# Status post fall with traumatic right humeral fracture/right radial fracture
CT head without any fracture or hemorrhage
Conservative/nonsurgical management recommended by orthopedics
Pain control
PT OT evaluation and fall precautions
# Hypovolemic shock
Responded to midodrine
Restarted Entresto and Coreg, continue to hold Lasix
# Acute gastroenteritis from norovirus
# Normocytic anemia-Eliquis on hold. No evident source of bleeding. Patient has diarrhea therefore heme testing will not be accurate. CT abdomen and pelvis and physical exam of bilateral upper thighs with no evidence of bleeding.
Probably from fracture.
Follow HB.
# Abnormal urinalysis-contaminated specimen with a lot of squamous/urothelial cells-note that the patient also has diarrhea
# Pulmonary nodule 1.2 cm opacity in the right upper lobe-outpatient workup if family desires to pursue
# Chronic HFrEF /coronary disease/ICD- Holding Lasix. Interrogation of defibrillator on 02/27/2025-no arrhythmias. Coreg and Entresto restarted
# Paroxysmal atrial fibrillation with RVR-Coreg restarted, Eliquis on hold
# Moderate Aortic Stenosis
# COPD-without exacerbation-continue Qvar or equivalent and prednisone
# Hypothyroidism-continue levothyroxine
# Frontotemporal Dementia with chronic aphasia
# Moderate to severe degenerative disc disease C Spine
# History of DVT-Holding Eliquis secondary to anemia
# DVT prophylaxis-Holding Eliquis
# DNR status
D/W RN
D/W Case management
Part of this note was created using voice recognition system. Occasional wrong word or��sound alike� substitutions may have inadvertently occurred due to the inherent limitations of voice recognition software. If noted kindly bring it to my
attention for correction.
[2025-03-03] MEDS: DILAUDID 0.25 MG IV (15:28)
[2025-03-03] MEDS: FLUSH (NSS) 2 FLUSH IV (15:34)
--- NOTE | 2025-03-03 17:16 | W.PN.CARDCBS ---
Today's Communication / Plan
-
Blood pressure improved. Continue Coreg.
Restart Eliquis tonight 5 mg p.o. twice daily. Hemoglobin stable at 8.0.
Would likely restart Lasix and possibly Entresto in AM.
Impression / Plan
-
PCP: Dr. Mittal
Lube Attendant: Dr. Hobson
Impression:
Presented w/ fall, R arm pain
R humerus fracture/nonoperative management
R distal radial fracture/nonoperative management
Hypotension
Tachycardia
Aphasic as result of prior CVA
h/o recovered CM
s/p [employer] ICD with [employer] [place] leads
Chronic HFpEF
Paroxysmal atrial fibrillation
Chronic Eliquis AC
Mod
HTN
HLD
Hypothyroidism
COPD
h/o DVT
Echo 02/12/2024: EF 50-55%, stage I diastolic dysfunction, trace MR, moderate with peak/mean gradients 23/12 mmHg, mild TR
Plan:
Blood pressure is improved. Continue Coreg. If remains stable will consider restarting Entresto in AM.
Restart Lasix 20 mg Sunday in a.m.
Interrogation of the INDUSTRIAL ECOLOGY TECHNICIAN defibrillator on 02/27/2025 shows no sustained arrhythmias, no device therapy delivered. No correlation to any events regarding her fall.
No clear signs of bleeding on scans. Hemoglobin overall stable at 8.0. Will restart Eliquis 5mg po bid and observe
HPI: Smiley is an 84 year old female with PMH of CVA w/ aphasia, recovered CM, ICD, chronic HFpEF, paroxysmal atrial fibrillation, HTN, HLD, hypothyroidism, COPD, and DVT. Presented to ER after a fall at home w/ subsequent R arm pain. She has
baseline aphasia, but is able to communicate w/ head nods and thumbs up/down. On review of H&P appears she had been struggling with nausea and vomiting w/ loose stool at home and was weak and somewhat confused per family. She was then getting into
bed and her legs gave out, resulting in fall. She tried to catch herself w/ the bedside table, but was unable to and arm twisted w/ fall. In ER, head CT negative for acute intracranial abnormality. Humerus xray revealed oblique fracture through the
proximal third of the R humerus with displacement and partial overlap of the fracture fragments. Also noted to have acute intra-articular fracture of the distal R radius w/ minimal posterior displacement of the distal fracture fragment. She was
evaluated by orthopedics and plan is for nonsurgical management. Splint in place. Cardiology consulted as she was noted to have frequent bursts of tachycardia on telemetry as well as episode of hypotension this AM resulting in rapid response. She
reports no complaints and denies chest pain, palpitations, dizziness, lightheadedness, or SOB. Only complaint is arm pain.
Progress Note - Lube Attendant
Subjective
Date of Service: March 03, 2025
Denies chest pains or dizziness.
Objective
Labs:
03/03/25 08:59
03/03/25 08:59
Labs
Hgb 8.0 g/dL (12.0-16.0) L 03/03/25 08:59
Hct 24.2 % (37.0-47.0) L 03/03/25 08:59
Plt Count 235 10^3/uL (130-400) 03/03/25 08:59
PT 16.4 Sec (11.4-14.6) H 02/27/25 06:55
INR 1.26 02/27/25 06:55
APTT 34.4 Sec (23.4-35.0) 02/27/25 06:55
Sodium 138 mmol/L (135-145) 03/03/25 08:59
Potassium 3.7 mmol/L (3.5-5.1) 03/03/25 08:59
BUN 9 mg/dl (7-17) 03/03/25 08:59
Creatinine 0.7 mg/dL (0.6-1.0) 03/03/25 08:59
Glucose 83 mg/dl (70-99) 03/03/25 08:59
Vital Signs and I&O:
Vital Signs
Temp Pulse Resp BP Pulse Ox
98.3 F 71 18 114/61 96
03/03/25 15:03 03/03/25 15:03 03/03/25 15:03 03/03/25 15:03 03/03/25 15:03
Vital Signs
Temp Pulse Resp BP Pulse Ox
98.3 F 71 18 114/61 96
03/03/25 15:03 03/03/25 15:03 03/03/25 15:03 03/03/25 15:03 03/03/25 15:03
Intake & Output
03/01/25 03/02/25 03/03/25 03/04/25
06:59 06:59 06:59 06:59
Intake Total 1580 / 1580 820 / 820 840 / 840 240 / 240
Output Total 700 / 700 850 / 850 950 / 950 150 / 150
Balance 880 / 880 -30 / -30 -110 / -110 90 / 90
Physical Exam
Physical Exam
GEN: No distress, awake, Ox3
HEENT: supple, anicteric, mmm
LUNGS: scatt rhonchi
CV: Reg, S1/S2, 1/6 syst LSB, no gallop
ABD: soft, BS+, NT/ND
EXT: No edema
NEURO: Gross non-focal
SKIN: No rash
[2025-03-03] MEDS: MIRALAX 17 GRAMS PO (17:41)
[2025-03-03] MEDS: ENTRESTO 24 MG/26 MG 1 TAB PO (20:20)
[2025-03-03] MEDS: ELIQUIS 5 MG PO (20:20)
[2025-03-03] MEDS: SENOKOT 8.6 MG PO (20:21)
[2025-03-03] MEDS: LEXAPRO 20 MG PO (21:05)
[2025-03-04] VITALS (7 sets, daily range): BP systolic 103–145; BP diastolic 49–68; PULSE 65; BMI 35.0
[2025-03-04] MEDS: TYLENOL PO (03:18)
[2025-03-04] MEDS: SYNTHROID 50 MCG PO (06:08)
[2025-03-04 07:16] LABS: Hemoglobin 7.9 g/dL (12.0-16.0); Mean Corp Hgb Conc. 34.3 g/dL (33.0-37.0); Mean Corpuscular Hgb 33.2 pg (27.0-31.0); Mean Corpuscular Volume 96.6 fL (81.0-99.0); Mean Platelet Volume 9.4 fL (7.4-10.4); Platelet Count 208 10^3/uL (130-400); Red Blood Cell Count 2.38 10^6/uL (4.20-5.40); White Blood Cell Count 5.1 10^3/uL (4.8-10.8)
[2025-03-04] MEDS: ZYRTEC 10 MG PO (07:42)
[2025-03-04] MEDS: ELIQUIS 5 MG PO ×2 (07:42→20:04)
[2025-03-04] MEDS: COREG 3.125 MG PO ×2 (07:42→20:04)
[2025-03-04] MEDS: ENTRESTO 24 MG/26 MG 1 TAB PO (07:42)
[2025-03-04] MEDS: PROTONIX 40 MG PO (07:43)
[2025-03-04] MEDS: MIRALAX 17 GRAMS PO (07:43)
[2025-03-04] MEDS: ProAmatine 5 MG PO ×3 (07:43→16:54)
[2025-03-04] MEDS: SENOKOT 8.6 MG PO ×2 (07:43→20:04)
[2025-03-04] MEDS: ROXICODONE 5 MG PO ×4 (07:48→21:55)
[2025-03-04] MEDS: DELTASONE 10 MG PO (07:48)
[2025-03-04] MEDS: TYLENOL 1000 MG PO ×2 (07:49→18:29)
[2025-03-04 07:51] LABS: Blood Urea Nitrogen 12 mg/dl (7-17); Calcium 8.5 mg/dl (8.4-10.2); Carbon Dioxide 28 mmol/L (22-30); Chloride 106 mmol/L (98-107); Estimated Creatinine Clearance 71 ml/min; Glucose 84 mg/dl (70-99); Potassium 3.9 mmol/L (3.5-5.1); Sodium 138 mmol/L (135-145); eGFR > 60.00
--- NOTE | 2025-03-04 08:16 | W.PN.HOSP.TC ---
Addendum entered and electronically signed by Ruslan Vargas MD 03/04/25 16:05:
I saw and evaluated the patient. I reviewed the resident�s note and agree with findings and plan as documented in the resident�s note.
Patient was seated in a chair when I saw her earlier today. Was complaining of pain at the arm.
Mild edema noted in the fingers
Echo 02/12/2024-EF 50 to 55%, stage I diastolic dysfunction, trace MR, moderate , mild TR.
CT abdomen pelvis-fluid in the rectum, small ventral hernia with no evidence of obstruction, mild coronary artery calcification.
Aphasia
Right arm on immobilizer, mild edema
Cardiovascular system S1-S2 appreciated, systolic murmur at aortic area
Abdomen soft and nontender
No pedal edema
# Status post fall with traumatic right humeral fracture/right radial fracture
CT head without any fracture or hemorrhage
Conservative/nonsurgical management recommended by orthopedics
Pain control
PT OT evaluation and fall precautions
Orthopedics aware about the edema who feels this is normal and to follow-up in the office.
# Hypovolemic shock
Responded to midodrine
Restarted Entresto but because of hypotension held again and , Lasix
Continue Coreg
# Acute gastroenteritis from norovirus
# Normocytic anemia-Eliquis restarted. No evident source of bleeding. . CT abdomen and pelvis and physical exam of bilateral upper thighs with no evidence of bleeding.
Probably from fracture.
Follow HB.
# Abnormal urinalysis-contaminated specimen with a lot of squamous/urothelial cells-note that the patient also has diarrhea
# Pulmonary nodule 1.2 cm opacity in the right upper lobe-outpatient workup if family desires to pursue
# Chronic HFrEF /coronary disease/ICD- Holding Lasix. Interrogation of defibrillator on 02/27/2025-no arrhythmias. Coreg and Entresto held again
# Paroxysmal atrial fibrillation with RVR-Coreg restarted, Eliquis restarted
# Moderate Aortic Stenosis
# COPD-without exacerbation-continue Qvar or equivalent and prednisone
# Hypothyroidism-continue levothyroxine
# Frontotemporal Dementia with chronic aphasia
# Moderate to severe degenerative disc disease C Spine
# History of DVT- Eliquis
# DVT prophylaxis- Eliquis restarted 03/03/25
# DNR status
D/W RN
D/W Case management
D/W cards
Discharge planning
Part of this note was created using voice recognition system. Occasional wrong word or��sound alike� substitutions may have inadvertently occurred due to the inherent limitations of voice recognition software. If noted kindly bring it to my
attention for correction.
Original Note:
Today's Communication/Plan
-
- d/c planning
Assessment / Plan
Assessment / Plan
Assessment:
84yo F h CHF, defibrillator, pacer, [place], expressive aphasia who presented to [facility] ED for a closed R humeral fx. Witnessed fall, where her RUE was twisted behind her back at an odd angle.
Plan:
S/p fall w right humeral fx / R radial fx
- XR humerus: Oblique fracture is identified through the proximal third of the right humerus. There is displacement and partial overlap of fracture fragments.
- XR wrist: ACUTE INTRA-ARTICULAR FRACTURE of the DISTAL RIGHT RADIUS with minimal posterior displacement of the distal fracture fragment.
- CT head: no acute intracranial abnormalities
- fall precautions
- appreciate ortho input - conservative management
- pain control
- PT/OT
Goals of care discussion
- pain control limited secondary to HoTN
- hospice input appreciated
- daughters would like to speak to PT/OT about prognosis
Hypovolemic shock
- pressures reportedly soft at home
- worsened w volume depletion secondary to N/V/D
- IVF
- hold home entresto
- midodrine
- resolved
Acute gastroenteritis secondary to norovirus
- presented w N/V/D
- febrile
- CT abdo/pelvis: diarrhea, no incarcerated hernia/obstruction
- C diff neg
- Norovirus positive, abx dc'ed
Pulmonary nodule
- CXR: 1.2 cm nodular opacity projected over the right upper lung zone, not seen on prior chest x-rays. Further evaluation is suggested with noncontrast CT of the chest.
- recommend outpt CT if not pursuing hospice
Normocytic anemia w/o signs of bleeding
- eliquis
- monitor cbc
- Hb improving
CAD
- holding home coreg
- denies CP
Chronic HFpEF
- LVEF 50-55%, indicating HFpEF
- hypervolemic
- holding home lasix, entresto, carvedilol
Paroxysmal Afib
Afib w RVR
- hold carvedilole secondary to HoTN
- appreciate cardiology input
- eliquis on hold secondary to anemia
COPD w/o acute exacerbation
- stable
- cont home Qvar, prednisone
Hypothyroidism
- stable
- cont home levothyroxine
Frontotemporal dementia
Chronic aphasia
- stable
- prn morphine for laryngeal spasms/dyspnea
DVT prophylaxis: SCDs, Eliquis
Diet: Regular diet
Code status: DNR
Anticipated Discharge: 24 - 48 hours
Subjective/Interval History
-
Date of Service: March 04, 2025
Pt reports pain in R posterior calf over where hematoma was while SCDs were running. Pain resolved by stopping SCD.
Objective Data
-
Labs:
Laboratory Results
03/04/25 03/04/25
07:03 08:03
WBC 5.1
Hgb 7.9 L Pending
Hct 23.0 L Pending
Plt Count 208
Sodium 138
Potassium 3.9
Chloride 106
Carbon Dioxide 28
BUN 12
Creatinine 0.6
Glucose 84
Calcium 8.5
Vital Signs:
Vital Signs
Temp Pulse Resp BP Pulse Ox
97.7 F 63 14 105/58 97
03/04/25 03:13 03/04/25 03:13 03/04/25 03:13 03/04/25 03:13 03/04/25 03:13
I&O
03/03/25 03/04/25 03/05/25
06:59 06:59 06:59
Intake Total 840 / 840 360 / 360
Output Total 950 / 950 625 / 625
Balance -110 / -110 -265 / -265
Review of Systems
-
Unable to obtain full review of systems at this time due to: Patient Non-verbal
Respiratory: Reports No Symptoms
Cardiac: Reports No Symptoms
Abdomen/GI: Reports No Symptoms
Physical Exam
-
General: Well Developed and Well Nourished
HEENT: Normocephalic and Atraumatic
Respiratory: Wheezes
Cardiac: Regular Rhythm and S1/S2
GI: Soft, Nontender, Nondistended and Normal Bowel Sounds
Musculoskeletal: No Clubbing, No Cyanosis and Edema, Right Upper Extrem
Skin: Warm and Dry
Neuro: Awake and Alert
[2025-03-04] MEDS: FLOVENT 110 MCG INHALER 2 PUFF INH ×2 (08:25→19:49)
[2025-03-04] MEDS: DILAUDID 0.5 MG IV ×3 (10:09→20:03)
[2025-03-04] MEDS: FLUSH (NSS) 2 FLUSH IV (10:10)
[2025-03-04 10:35] LABS: Hematocrit 23.7 % (37.0-47.0); Hemoglobin 7.8 g/dL (12.0-16.0)
[2025-03-04 14:02] LABS: Hemoglobin 8.1 g/dL (12.0-16.0)
--- NOTE | 2025-03-04 14:21 | W.PN.CARDCBS ---
Addendum entered and electronically signed by Ismael Garrido MD 03/04/25 14:38:
I saw and examined the patient.
The PEST CONTROL CHEMICAL TECHNICIAN or PA's note was reviewed and I agree with the note.
Comment: General: Well developed, well nourished in NAD.
Neck: Supple, no JVD, HJR, carotids +2 B/L, no bruits bilaterally.
Heart: Non displaced PMI, RRR, no murmurs, No S3, S4, no rubs.
Lungs: Scattered rhonchi
Extremities: No clubbing, cyanosis or edema bilaterally.
Neuro: Grossly nonfocal, awake, alert and oriented x3.
Entresto had been restarted but will place on hold given hypotension requiring midodrine. Will attempt to wean off midodrine or decrease dose before restarting Entresto and Lasix. Discussed with daughter at bedside. Daughter mention she is
currently in palliative care and may be progressing towards hospice.
Original Note:
Today's Communication / Plan
-
Entresto placed back on hold. Attempt to wean off of midodrine prior to resuming Entresto and Lasix
Continue low-dose Coreg
Continue Eliquis. Hemoglobin stable
Impression / Plan
-
PCP: Dr. Mittal
Digital Advertising Specialist: Dr. Hobson
Impression:
Presented w/ fall, R arm pain
R humerus fracture/nonoperative management
R distal radial fracture/nonoperative management
Hypotension
Tachycardia
Aphasic as result of prior CVA
h/o recovered CM
s/p [employer] ICD with [employer] [place] leads
Chronic HFpEF
Paroxysmal atrial fibrillation
Chronic Eliquis AC
Mod
HTN
HLD
Hypothyroidism
COPD
h/o DVT
Echo 02/12/2024: EF 50-55%, stage I diastolic dysfunction, trace MR, moderate with peak/mean gradients 23/12 mmHg, mild TR
Plan:
- Patient denies chest pain or shortness of breath
- Blood pressure trends overall improving, however remains on midodrine 5 mg 3 times daily. Entresto was restarted last evening, however would favor continuing to hold and attempting to wean midodrine prior to restarting. Will place Entresto back
on hold and attempt to decrease midodrine to 2.5 mg 3 times daily. Continue low-dose Coreg
- Holding outpatient Lasix 20 mg Sunday for now as well
- She remains in paced rhythm on review of telemetry device interrogation this admission showed no sustained arrhythmias correlating to her fall prompting admission
- Continue outpatient Eliquis. Hemoglobin stable at 8.1
HPI: Smiley is an 84 year old female with PMH of CVA w/ aphasia, recovered CM, ICD, chronic HFpEF, paroxysmal atrial fibrillation, HTN, HLD, hypothyroidism, COPD, and DVT. Presented to ER after a fall at home w/ subsequent R arm pain. She has
baseline aphasia, but is able to communicate w/ head nods and thumbs up/down. On review of H&P appears she had been struggling with nausea and vomiting w/ loose stool at home and was weak and somewhat confused per family. She was then getting into
bed and her legs gave out, resulting in fall. She tried to catch herself w/ the bedside table, but was unable to and arm twisted w/ fall. In ER, head CT negative for acute intracranial abnormality. Humerus xray revealed oblique fracture through the
proximal third of the R humerus with displacement and partial overlap of the fracture fragments. Also noted to have acute intra-articular fracture of the distal R radius w/ minimal posterior displacement of the distal fracture fragment. She was
evaluated by orthopedics and plan is for nonsurgical management. Splint in place. Cardiology consulted as she was noted to have frequent bursts of tachycardia on telemetry as well as episode of hypotension this AM resulting in rapid response. She
reports no complaints and denies chest pain, palpitations, dizziness, lightheadedness, or SOB. Only complaint is arm pain.
Progress Note - Digital Advertising Specialist
Subjective
Date of Service: March 04, 2025
Denies chest pain or shortness of breath. Reports continued right arm pain
Objective
Labs:
03/04/25 13:35
03/04/25 07:03
Labs
Hgb 8.1 g/dL (12.0-16.0) L 03/04/25 13:35
Hct 25.0 % (37.0-47.0) L 03/04/25 13:35
Plt Count 208 10^3/uL (130-400) 03/04/25 07:03
PT 16.4 Sec (11.4-14.6) H 02/27/25 06:55
INR 1.26 02/27/25 06:55
APTT 34.4 Sec (23.4-35.0) 02/27/25 06:55
Sodium 138 mmol/L (135-145) 03/04/25 07:03
Potassium 3.9 mmol/L (3.5-5.1) 03/04/25 07:03
BUN 12 mg/dl (7-17) 03/04/25 07:03
Creatinine 0.6 mg/dL (0.6-1.0) 03/04/25 07:03
Glucose 84 mg/dl (70-99) 03/04/25 07:03
Vital Signs and I&O:
Vital Signs
Temp Pulse Resp BP Pulse Ox
98.5 F 64 18 103/49 97
03/04/25 11:00 03/04/25 12:05 03/04/25 11:00 03/04/25 12:05 03/04/25 11:00
Vital Signs
Temp Pulse Resp BP Pulse Ox
98.5 F 64 18 103/49 97
03/04/25 11:00 03/04/25 12:05 03/04/25 11:00 03/04/25 12:05 03/04/25 11:00
Intake & Output
03/02/25 03/03/25 03/04/2508/25
07:59 07:59 07:59 07:59
Intake Total 820 / 820 840 / 840 360 / 360
Output Total 850 / 850 950 / 950 625 / 625
Balance -30 / -30 -110 / -110 -265 / -265
Physical Exam
Physical Exam
GEN: No distress, awake, alert, oriented x3. Obese. Sitting in chair
HEENT: supple, anicteric, mmm, EOMI
LUNGS: CTA bilaterally anterolaterally, no wheezes
CV: Reg, S1/S2, 1/6 syst LSB
ABD: soft, BS+, NT/ND
EXT: No cyanosis, clubbing, edema. Right upper extremity with Javier wrap and splint in place
NEURO: Gross non-focal
SKIN: Warm, pink, dry. No rash
[2025-03-04] MEDS: FLUSH (NSS) 1 FLUSH IV (14:37)
--- NOTE | 2025-03-04 15:47 | CM ---
Chart reviewed. Additional referrals sent yesterday for skilled rehab. CM reviewed w/ patient's daughter, Ana.
[facility]- no beds
[facility]- unable to accept
[facility]- can accept patient
Per Ana, she would like to consider [facility] as it is closer to her home. In the meantime, she will look into [facility], requested for DIANNA to text her the address.
DIANNA left message w/ admissions at [facility]
Will need auth prior to d/c
Plan: SNF; pending accepting facility and auth
[2025-03-04] MEDS: SENOKOT 17.2 MG PO (16:48)
[2025-03-04] MEDS: MILK OF MAGNESIA 30 ML PO (16:49)
[2025-03-04] MEDS: LEXAPRO 20 MG PO (21:55)
[2025-03-04] MEDS: MINERAL OIL 30 ML PO (21:56)
[2025-03-05] MEDS: DILAUDID 0.5 MG IV ×5 (00:35→20:51)
[2025-03-05] MEDS: TYLENOL PO (02:07)
[2025-03-05] MEDS: SYNTHROID 50 MCG PO (05:40)
[2025-03-05 06:00] VITALS: BMI 35.3
[2025-03-05 07:30] VITALS: BP 186/84
--- NOTE | 2025-03-05 07:57 | W.PN.HOSP.TC ---
Addendum entered and electronically signed by Ruslan Vargas MD 03/05/25 16:26:
I saw and evaluated the patient. I reviewed the resident�s note and agree with findings and plan as documented in the resident�s note except for changes in my documentation
Echo 02/12/2024-EF 50 to 55%, stage I diastolic dysfunction, trace MR, moderate , mild TR.
CT abdomen pelvis-fluid in the rectum, small ventral hernia with no evidence of obstruction, mild coronary artery calcification.
Aphasia
Right arm on immobilizer, mild edema
She has oozing noted under the pillow from the right arm serosanguineous
Cardiovascular system S1-S2 appreciated, systolic murmur at aortic area
Abdomen soft and nontender
No pedal edema
# Possible pneumonia on the right side versus atelectasis-add antibiotics and incentive spirometry
# Status post fall with traumatic right humeral fracture/right radial fracture
CT head without any fracture or hemorrhage
Conservative/nonsurgical management recommended by orthopedics
Pain control
PT OT evaluation and fall precautions
# Oozing noted from right arm patient does have a skin tear underneath the forearm immobilizer unclear if it is from this. I have informed orthopedics to kindly unwrap and take a look
# Hypovolemic shock
Responded to midodrine
Restarted Entresto but because of hypotension held again and , Lasix on hold
Continue Coreg
# Acute gastroenteritis from norovirus-resolved
# Constipation-bowel regimen has been ordered. Patient refused Dulcolax. Mag citrate ordered today.
# Normocytic anemia-Eliquis restarted. No evident source of bleeding. . CT abdomen and pelvis and physical exam of bilateral upper thighs with no evidence of bleeding.
Probably from fracture.
Follow HB.
# Abnormal urinalysis-contaminated specimen with a lot of squamous/urothelial cells-note that the patient also had diarrhea
# Pulmonary nodule 1.2 cm opacity in the right upper lobe-outpatient workup if family desires to pursue
# Chronic HFrEF /coronary disease/ICD- Holding Lasix. Interrogation of defibrillator on 02/27/2025-no arrhythmias. Coreg and Entresto held again. We can probably restart Lasix 20 mg Sunday I agree with that.
# Paroxysmal atrial fibrillation with RVR-Coreg restarted, Eliquis restarted
# Moderate Aortic Stenosis
# COPD-without exacerbation-continue Qvar or equivalent and prednisone
# Hypothyroidism-continue levothyroxine
# Frontotemporal Dementia with chronic aphasia
# Moderate to severe degenerative disc disease C Spine
# History of DVT- Eliquis
# DVT prophylaxis- Eliquis restarted 03/03/25
# DNR status
D/W RN
D/W Case management
Sent message to orthopedics
Detailed discussion with the patient's daughter and updated
Time spent more than 50 minutes
Original Note:
Today's Communication/Plan
-
- speech therapy
- CXR
- dc planning
Assessment / Plan
Assessment / Plan
Assessment:
84yo F pmh CHF, defibrillator, pacer, CHINIK, expressive aphasia who presented to [facility] ED for a closed R humeral fx. Witnessed fall, where her RUE was twisted behind her back at an odd angle.
Plan:
SOB
- concern for possible aspiration
- speech therapy
- CXR
S/p fall w right humeral fx / R radial fx
- XR humerus: Oblique fracture is identified through the proximal third of the right humerus. There is displacement and partial overlap of fracture fragments.
- XR wrist: ACUTE INTRA-ARTICULAR FRACTURE of the DISTAL RIGHT RADIUS with minimal posterior displacement of the distal fracture fragment.
- CT head: no acute intracranial abnormalities
- fall precautions
- appreciate ortho input - conservative management
- pain control
- PT/OT
Goals of care discussion
- pain control limited secondary to HoTN
- daughters planning for 'comfort care' after SNF
Hypovolemic shock
- pressures reportedly soft at home
- worsened w volume depletion secondary to N/V/D
- IVF
- hold home entresto
- midodrine
- resolved
Acute gastroenteritis secondary to norovirus
- presented w N/V/D
- febrile
- CT abdo/pelvis: diarrhea, no incarcerated hernia/obstruction
- C diff neg
- Norovirus positive, abx dc'ed
Pulmonary nodule
- CXR: 1.2 cm nodular opacity projected over the right upper lung zone, not seen on prior chest x-rays. Further evaluation is suggested with noncontrast CT of the chest.
- recommend outpt CT if not pursuing hospice
Normocytic anemia w/o signs of bleeding
- eliquis
- monitor cbc
- Hb improving
CAD
- holding home coreg
- denies CP
Chronic HFpEF
- LVEF 50-55%, indicating HFpEF
- hypervolemic
- holding home lasix, entresto, carvedilol
Paroxysmal Afib
Afib w RVR
- hold carvedilole secondary to HoTN
- appreciate cardiology input
- eliquis on hold secondary to anemia
COPD w/o acute exacerbation
- stable
- cont home Qvar, prednisone
Hypothyroidism
- stable
- cont home levothyroxine
Frontotemporal dementia
Chronic aphasia
- stable
- prn morphine for laryngeal spasms/dyspnea
DVT prophylaxis: SCDs, Eliquis
Diet: Regular diet
Code status: DNR
Anticipated Discharge: Within 24 hours
Subjective/Interval History
-
Date of Service: March 05, 2025
Dyspneic. Daughter worried she is aspirating while eating breakfast. Daughters plan to do 'comfort care' after pt returns home from SNF.
Objective Data
-
Labs:
Laboratory Results
03/05/25
06:00
WBC Pending
Hgb Pending
Hct Pending
Plt Count Pending
Sodium Pending
Potassium Pending
Chloride Pending
Carbon Dioxide Pending
BUN Pending
Creatinine Pending
Glucose Pending
Calcium Pending
Vital Signs:
Vital Signs
Temp Pulse Resp BP Pulse Ox
98.6 F 64 14 126/56 96
03/04/25 23:11 03/04/25 23:11 03/04/25 23:11 03/04/25 23:11 03/04/25 23:11
I&O
03/04/25 03/05/25 03/06/25
06:59 06:59 06:59
Intake Total 360 / 360 420 / 420 360 / 360
Output Total 625 / 625 150 / 150
Balance -265 / -265 270 / 270 360 / 360
Review of Systems
-
Unable to obtain full review of systems at this time due to: Patient Non-verbal
History Source: Patient and Family
Constitutional: Reports No Symptoms
Respiratory: Reports Trouble Breathing
Cardiac: Reports No Symptoms
Abdomen/GI: Reports No Symptoms
Skin: Reports No Symptoms
Physical Exam
-
General: Well Developed, Well Nourished, Respiratory Distress and Obese
HEENT: Normocephalic, Atraumatic and Anicteric
Respiratory: Crackles and Accessory Resp Muscle Use
Cardiac: Regular Rhythm and S1/S2
GI: Soft, Nontender, Nondistended and Normal Bowel Sounds
Musculoskeletal: No Clubbing, No Cyanosis and No Edema
Skin: Warm and Dry
Neuro: Awake and Alert
[2025-03-05] MEDS: FLOVENT 110 MCG INHALER 2 PUFF INH ×2 (08:17→19:31)
[2025-03-05] MEDS: MIRALAX 17 GRAMS PO (08:17)
[2025-03-05] MEDS: ZYRTEC 10 MG PO (08:19)
[2025-03-05] MEDS: PROTONIX 40 MG PO (08:19)
[2025-03-05] MEDS: ELIQUIS 5 MG PO ×2 (08:19→20:28)
[2025-03-05] MEDS: COREG 3.125 MG PO ×2 (08:19→20:28)
[2025-03-05] MEDS: SENOKOT 8.6 MG PO ×2 (08:19→20:28)
[2025-03-05] MEDS: DELTASONE 10 MG PO (08:19)
[2025-03-05] MEDS: ProAmatine 5 MG PO ×3 (08:25→17:02)
[2025-03-05 09:27] LABS: Hematocrit 25.5 % (37.0-47.0); Hemoglobin 8.3 g/dL (12.0-16.0); Mean Corp Hgb Conc. 32.5 g/dL (33.0-37.0); Mean Corpuscular Hgb 32.9 pg (27.0-31.0); Mean Corpuscular Volume 101.2 fL (81.0-99.0); Mean Platelet Volume 9.9 fL (7.4-10.4); Platelet Count 334 10^3/uL (130-400); Red Blood Cell Count 2.52 10^6/uL (4.20-5.40); Red Cell Dist. Width 13.2 % (11.5-14.5); White Blood Cell Count 7.5 10^3/uL (4.8-10.8)
[2025-03-05 10:00] LABS: Blood Urea Nitrogen 12 mg/dl (7-17); Calcium 8.7 mg/dl (8.4-10.2); Carbon Dioxide 31 mmol/L (22-30); Chloride 103 mmol/L (98-107); Estimated Creatinine Clearance 72 ml/min; Glucose 81 mg/dl (70-99); Potassium 4.3 mmol/L (3.5-5.1); Sodium 137 mmol/L (135-145); eGFR > 60.00
[2025-03-05] MEDS: TYLENOL 1000 MG PO ×2 (10:18→17:02)
--- NOTE | 2025-03-05 11:09 | CM ---
CM reviewed chart, patient and daughter seen bedside, other daughter Ana on phone. CM discussed [facility] can offer a bed, provided number for [facility] in admissions [phone] to schedule a tour, family will schedule tour. Per [facility],
will review with DON if able to accept, will likely require a financial application in the case patient transitions to LTC. Daughters not agreeable to complete financial application. Daughters inquiring amount of rehab days patient has left, CM
advised family to call member services on patients insurance card. CM spoke with [employer] [facility], patient has used 13 out of 100 days. Family requesting to speak with Hospitalist, TT to Doctor with request. CM will continue to follow for all
discharge planning needs.
Plan; family to tour [facility] for SNF, will require auth
[2025-03-05] MEDS: CITROMA 150 ML PO (12:32)
--- NOTE | 2025-03-05 13:34 | PTOTSP ---
Speech Therapy Swallowing Assessment
Oral/pharyngeal swallow deemed within functional limits without overt signs of aspiration.
Recommend
1. Continue Regular solids and thin liquids - soft solids per patient preference due to several missing teeth.
2. Meds whole in applesauce.
3. No skilled ST at this time
--- NOTE | 2025-03-05 14:26 | W.PN.CARDCBS ---
Addendum entered and electronically signed by Kole Friend MD 03/05/25 16:27:
84-year-old woman admitted after a fall with a complex proximal right humeral and right distal radial fracture, both to be managed nonoperatively, cardiology asked to evaluate regarding rhythm. Patient currently on midodrine for hypotension,
Entresto on hold, patient on low-dose carvedilol, on low-dose furosemide 20 mg 3 times a week as outpatient
PMH: Primary progressive aphasia, cardiomyopathy with improved EF, history of [employer] ICD, HFpEF, PAF, moderate aortic stenosis, hypertension, hyperlipidemia, hypothyroidism, COPD, history of DVT, patient is DNR, recent norovirus
Current medications: Flovent, Zyrtec, WelChol, Lexapro, Synthroid, pantoprazole, valsartan on hold, prednisone 10 mg daily, carvedilol 3.125 twice daily, apixaban 5 mg twice daily, MiraLAX, mineral oil, midodrine 5 3 times daily
84/52, pulse 71, afebrile,Weight is 87.5 kg, up 0.8 kg, intake and output +0.6 L, pleasant, right arm is wrapped, understanding is good, daughters is at bedside, offers no complaints, limited exam of lungs unremarkable, regular rate and rhythm, not
much edema
Chest x-ray: Eventration of right hemidiaphragm, vascular status looks reasonable, ICD with LV lead
Hemoglobin is 8.3, Had been 11.2 in late January, CO2 was 31, BUN/creatinine are 12 and 0.6
Impression:
Presented w/ fall, R arm pain
R humerus fracture/nonoperative management
R distal radial fracture/nonoperative management
Hypotension
Tachycardia
Primary progressive aphasia
h/o recovered CM
s/p [employer] ICD with [employer] leads
Chronic HFpEF
Paroxysmal atrial fibrillation
Chronic Eliquis AC
Mod
HTN
HLD
Hypothyroidism
COPD
h/o DVT
DNR CODE STATUS
Plan:
She seems stable from a cardiac standpoint
Given history of tachycardia, we should continue carvedilol.
She is still hypotensive on midodrine, this may relate to volume depletion as her hemoglobin has dropped through 4 g following her humeral fracture. She is always relatively hypotensive, continue midodrine 5 mg 3 times daily, continue to hold
Entresto, which is of limited utility given that ejection fraction has improved.
She is on furosemide 20 mg 3 times a week at home, this is on hold, as blood pressure recovers, we may need to restart this.
Original Note:
Today's Communication / Plan
-
Continue Coreg, midodrine
Consider resuming Lasix 20 mg p.o. Sunday
Hold Entresto for now and reevaluate as outpatient
Will arrange outpatient cardiac follow-up
Impression / Plan
-
PCP: Dr. Mittal
Hris Analyst: Dr. Hobson
Impression:
Presented w/ fall, R arm pain
R humerus fracture/nonoperative management
R distal radial fracture/nonoperative management
Hypotension
Tachycardia
Aphasic as result of prior CVA
h/o recovered CM
s/p [employer] ICD with [employer] leads
Chronic HFpEF
Paroxysmal atrial fibrillation
Chronic Eliquis AC
Mod
HTN
HLD
Hypothyroidism
COPD
h/o DVT
DNR CODE STATUS
Echo 02/12/2024: EF 50-55%, stage I diastolic dysfunction, trace MR, moderate with peak/mean gradients 23/12 mmHg, mild TR
Plan:
- Main complaint remains right upper extremity pain. Denies chest pain or shortness of breath
- Blood pressures remain marginal at times on midodrine 5 mg 3 times daily. Continue low-dose Coreg. Would continue to hold Entresto for now and can reassess restarting as outpatient
- There was concern for aspiration and chest x-ray this morning with evidence of possible developing right-sided pneumonia. As weight trending up, would consider resuming Lasix 20 mg Sunday
- She is now off of telemetry. Device interrogation this admission showed no sustained arrhythmias correlating to fall prompting admission
- Hemoglobin stable at 8.3 on Eliquis 5 mg twice daily.
- Plan for SNF upon discharge
- Will arrange outpatient cardiac follow-up
HPI: Smiley is an 84 year old female with PMH of CVA w/ aphasia, recovered CM, ICD, chronic HFpEF, paroxysmal atrial fibrillation, HTN, HLD, hypothyroidism, COPD, and DVT. Presented to ER after a fall at home w/ subsequent R arm pain. She has
baseline aphasia, but is able to communicate w/ head nods and thumbs up/down. On review of H&P appears she had been struggling with nausea and vomiting w/ loose stool at home and was weak and somewhat confused per family. She was then getting into
bed and her legs gave out, resulting in fall. She tried to catch herself w/ the bedside table, but was unable to and arm twisted w/ fall. In ER, head CT negative for acute intracranial abnormality. Humerus xray revealed oblique fracture through the
proximal third of the R humerus with displacement and partial overlap of the fracture fragments. Also noted to have acute intra-articular fracture of the distal R radius w/ minimal posterior displacement of the distal fracture fragment. She was
evaluated by orthopedics and plan is for nonsurgical management. Splint in place. Cardiology consulted as she was noted to have frequent bursts of tachycardia on telemetry as well as episode of hypotension this AM resulting in rapid response. She
reports no complaints and denies chest pain, palpitations, dizziness, lightheadedness, or SOB. Only complaint is arm pain.
Progress Note - Hris Analyst
Subjective
Date of Service: March 05, 2025
Complains of right upper extremity pain. Denies chest pain and shortness of breath
Objective
Labs:
03/05/25 08:01
03/05/25 08:01
Labs
Hgb 8.3 g/dL (12.0-16.0) L 03/05/25 08:01
Hct 25.5 % (37.0-47.0) L 03/05/25 08:01
Plt Count 334 10^3/uL (130-400) D 03/05/25 08:01
PT 16.4 Sec (11.4-14.6) H 02/27/25 06:55
INR 1.26 02/27/25 06:55
APTT 34.4 Sec (23.4-35.0) 02/27/25 06:55
Sodium 137 mmol/L (135-145) 03/05/25 08:01
Potassium 4.3 mmol/L (3.5-5.1) 03/05/25 08:01
BUN 12 mg/dl (7-17) 03/05/25 08:01
Creatinine 0.6 mg/dL (0.6-1.0) 03/05/25 08:01
Glucose 81 mg/dl (70-99) 03/05/25 08:01
Vital Signs and I&O:
Vital Signs
Temp Pulse Resp BP Pulse Ox
98.1 F 71 18 84/52 97
03/05/25 07:30 03/05/25 08:21 03/05/25 08:21 03/05/25 12:32 03/05/25 08:21
Vital Signs
Temp Pulse Resp BP Pulse Ox
98.1 F 71 18 84/52 97
03/05/25 07:30 03/05/25 08:21 03/05/25 08:21 03/05/25 12:32 03/05/25 08:21
Intake & Output
03/03/25 03/04/25 03/05/25 03/06/25
07:59 07:59 07:59 07:59
Intake Total 840 / 840 360 / 360 780 / 780
Output Total 950 / 950 625 / 625 150 / 150
Balance -110 / -110 -265 / -265 630 / 630
Physical Exam
Physical Exam
GEN: No distress, awake, alert, oriented x3. Obese.
HEENT: supple, anicteric, mmm, EOMI
LUNGS: CTA bilaterally anterolaterally, no wheezes
CV: Reg, S1/S2, 1/6 syst LSB
ABD: soft, BS+, NT/ND
EXT: No cyanosis, clubbing, edema. Right upper extremity with Javier wrap and splint in place
NEURO: Gross non-focal
SKIN: Warm, pink, dry. No rash
[2025-03-05 15:00] VITALS: BP 97/59
[2025-03-05] MEDS: AUGMENTIN 875 MG/125 MG 1 TABLET PO (17:01)
[2025-03-05] MEDS: MINERAL OIL 30 ML PO (21:02)
[2025-03-05] MEDS: LEXAPRO 20 MG PO (21:02)
[2025-03-05 22:30] VITALS: BP 109/55
[2025-03-06] MEDS: TYLENOL 1000 MG PO ×3 (02:26→17:32)
[2025-03-06 06:00] VITALS: BMI 34.8
[2025-03-06] MEDS: AUGMENTIN 875 MG/125 MG 1 TABLET PO ×2 (06:01→17:32)
[2025-03-06] MEDS: SYNTHROID 50 MCG PO (06:01)
[2025-03-06] MEDS: DILAUDID 0.5 MG IV ×3 (06:05→17:32)
[2025-03-06 07:00] VITALS: BP 117/59
[2025-03-06] MEDS: FLOVENT 110 MCG INHALER 2 PUFF INH ×2 (07:36→19:56)
[2025-03-06 07:57] LABS: Hematocrit 24.6 % (37.0-47.0); Hemoglobin 8.1 g/dL (12.0-16.0); Mean Corp Hgb Conc. 32.9 g/dL (33.0-37.0); Mean Corpuscular Hgb 33.3 pg (27.0-31.0); Mean Corpuscular Volume 101.2 fL (81.0-99.0); Mean Platelet Volume 9.5 fL (7.4-10.4); Platelet Count 382 10^3/uL (130-400); Red Blood Cell Count 2.43 10^6/uL (4.20-5.40); Red Cell Dist. Width 13.5 % (11.5-14.5); White Blood Cell Count 7.1 10^3/uL (4.8-10.8)
[2025-03-06 08:19] LABS: NT-proBNP 509 pg/ml
[2025-03-06 08:24] LABS: Blood Urea Nitrogen 15 mg/dl (7-17); Calcium 8.9 mg/dl (8.4-10.2); Carbon Dioxide 31 mmol/L (22-30); Chloride 103 mmol/L (98-107); Estimated Creatinine Clearance 61 ml/min; Glucose 85 mg/dl (70-99); Potassium 4.5 mmol/L (3.5-5.1); Sodium 137 mmol/L (135-145); eGFR > 60.00
--- NOTE | 2025-03-06 08:40 | W.PN.UPDATE ---
Update Note
Progress Note Update
Patient seen and examined this morning. There are some superficial abrasion with edematous fluid that is weeping.
No concern for worse pathology of her wrist that would manager of change. Recommend continue wound care with nonadhesive dressings as is applied with Adaptic and overlying Kerlix and ABD pad. Splint only for comfort which was off this morning
which is okay. Recommend as much extremity elevation to reduce her edema is following gravity out to her hand.
Patient was recommended for x-rays at 1 week; can complete tomorrow or by Sunday
[2025-03-06] MEDS: PROTONIX 40 MG PO (09:04)
[2025-03-06] MEDS: COREG 3.125 MG PO ×2 (09:05→23:06)
[2025-03-06] MEDS: ProAmatine 5 MG PO ×3 (09:05→17:32)
[2025-03-06] MEDS: ROXICODONE 5 MG PO ×2 (09:05→14:39)
[2025-03-06] MEDS: ZYRTEC 10 MG PO (09:05)
[2025-03-06] MEDS: ELIQUIS 5 MG PO ×2 (09:06→23:06)
[2025-03-06] MEDS: DELTASONE 10 MG PO (09:12)
[2025-03-06] MEDS: SENOKOT PO (09:34)
[2025-03-06] MEDS: MIRALAX PO (09:34)
--- NOTE | 2025-03-06 11:47 | CM ---
CM reviewed chart, patient seen bedside with daughter, other daughter Ana via phone. Daughters report they did tour [facility], still report concern over sending patient to a facility due to patients past experience at SNF. Daughters requesting
referral to [facility], referral placed in [facility]. CM discussed there may be no beds available at [place] but will place referral. Daughters report they feel patient is not stable for d/c. CM will continue to follow for all discharge planning
needs.
Plan; SNF, family requesting referral to [facility], will need insurance auth.
--- NOTE | 2025-03-06 13:48 | W.PN.CARDCBS ---
Addendum entered and electronically signed by Audra Zheng DO 03/06/25 17:43:
I saw and examined the patient.
The Case Resource Manager's note was reviewed and I agree with the note.
Comment: Patient seen and examined with daughter at bedside. No new complaints with daughter concerned about right arm swelling/bruising. Chart/telemetry reviewed.
GEN: Awake alert and oriented in no acute distress sitting out of bed to chair on room air. Aphasic but communicates with hand gestures/thumbs up
HEENT:mmm
LUNGS: CTA bilaterally anterolaterally, no audible wheezes
CV: Reg, S1/S2, 1/6 syst LSB
ABD: soft, BS+, NT/ND
EXT: No lower extremity edema. Right upper extremity with Javier wrap and splint in place with hand swelling and ecchymosis
Plan:
- Continue supportive care of right humerus and right distal radial fracture per orthopedics
- No chest pain or shortness of breath
- Blood pressures remain marginal at times but improved. Continue midodrine 5 mg 3 times daily. Continue low-dose Coreg. Continue to hold Entresto for now and can consider restarting as an outpatient as blood pressure improves
- Would tentatively plan to restart Lasix 20 mg Sunday as of 03/09/2025
- Device interrogation this admission showed no sustained arrhythmias correlating to fall prompting admission
- Hemoglobin overall stable at 8.1 on Eliquis 5 mg twice daily.
- Plan for SNF upon discharge
- Will arrange outpatient cardiac follow-up
- Will plan to sign off
-Discussed with family and patient at bedside. Discussed with hospitalist.
Original Note:
Today's Communication / Plan
-
Continue midodrine, Coreg
Hold Entresto for now until reevaluated in outpatient setting
Would plan to resume Lasix 20 mg Sunday as of 03/09/2025
Will arrange outpatient cardiac follow-up
Impression / Plan
-
PCP: Dr. Mittal
Sole Seamer: Dr. Hobson
Impression:
Presented w/ fall, R arm pain
R humerus fracture/nonoperative management
R distal radial fracture/nonoperative management
Hypotension
Tachycardia
Aphasic
h/o recovered CM
s/p [employer] ICD with [employer] leads
Chronic HFpEF
Paroxysmal atrial fibrillation
Chronic Eliquis AC
Mod
HTN
HLD
Hypothyroidism
COPD
h/o DVT
DNR CODE STATUS
Echo 02/12/2024: EF 50-55%, stage I diastolic dysfunction, trace MR, moderate with peak/mean gradients 23/12 mmHg, mild TR
Plan:
- Continue supportive care of right humerus and right distal radial fracture per orthopedics
- No chest pain or shortness of breath
- Blood pressures remain marginal at times. Continue midodrine 5 mg 3 times daily. Continue low-dose Coreg. Continue to hold Entresto for now and can consider restarting as an outpatient as blood pressure improves
- Would tentatively plan to restart Lasix 20 mg Sunday as of 03/09/2025
- Device interrogation this admission showed no sustained arrhythmias correlating to fall prompting admission
- Hemoglobin overall stable at 8.1 on Eliquis 5 mg twice daily.
- Plan for SNF upon discharge
- Will arrange outpatient cardiac follow-up
- Will plan to sign off
HPI: Smiley is an 84 year old female with PMH of CVA w/ aphasia, recovered CM, ICD, chronic HFpEF, paroxysmal atrial fibrillation, HTN, HLD, hypothyroidism, COPD, and DVT. Presented to ER after a fall at home w/ subsequent R arm pain. She has
baseline aphasia, but is able to communicate w/ head nods and thumbs up/down. On review of H&P appears she had been struggling with nausea and vomiting w/ loose stool at home and was weak and somewhat confused per family. She was then getting into
bed and her legs gave out, resulting in fall. She tried to catch herself w/ the bedside table, but was unable to and arm twisted w/ fall. In ER, head CT negative for acute intracranial abnormality. Humerus xray revealed oblique fracture through the
proximal third of the R humerus with displacement and partial overlap of the fracture fragments. Also noted to have acute intra-articular fracture of the distal R radius w/ minimal posterior displacement of the distal fracture fragment. She was
evaluated by orthopedics and plan is for nonsurgical management. Splint in place. Cardiology consulted as she was noted to have frequent bursts of tachycardia on telemetry as well as episode of hypotension this AM resulting in rapid response. She
reports no complaints and denies chest pain, palpitations, dizziness, lightheadedness, or SOB. Only complaint is arm pain.
Progress Note - Sole Seamer
Subjective
Date of Service: March 06, 2025
Denies chest pain or shortness of breath
Objective
Labs:
03/06/25 06:59
03/06/25 06:59
Labs
Hgb 8.1 g/dL (12.0-16.0) L 03/06/25 06:59
Hct 24.6 % (37.0-47.0) L 03/06/25 06:59
Plt Count 382 10^3/uL (130-400) 03/06/25 06:59
PT 16.4 Sec (11.4-14.6) H 02/27/25 06:55
INR 1.26 02/27/25 06:55
APTT 34.4 Sec (23.4-35.0) 02/27/25 06:55
Sodium 137 mmol/L (135-145) 03/06/25 06:59
Potassium 4.5 mmol/L (3.5-5.1) 03/06/25 06:59
BUN 15 mg/dl (7-17) 03/06/25 06:59
Creatinine 0.7 mg/dL (0.6-1.0) 03/06/25 06:59
Glucose 85 mg/dl (70-99) 03/06/25 06:59
Vital Signs and I&O:
Vital Signs
Temp Pulse Resp BP Pulse Ox
98.4 F 72 18 117/59 97
03/06/25 07:00 03/06/25 07:39 03/06/25 07:39 03/06/25 07:00 03/06/25 07:39
Vital Signs
Temp Pulse Resp BP Pulse Ox
98.4 F 72 18 117/59 97
03/06/25 07:00 03/06/25 07:39 03/06/25 07:39 03/06/25 07:00 03/06/25 07:39
Intake & Output
03/04/25 03/05/25 03/06/25 03/07/25
07:59 07:59 07:59 07:59
Intake Total 360 / 360 780 / 780 720 / 720
Output Total 625 / 625 150 / 150
Balance -265 / -265 630 / 630 720 / 720
Physical Exam
Physical Exam
GEN: No distress, awake, alert, oriented x3. Obese.
HEENT: supple, anicteric, mmm, EOMI
LUNGS: CTA bilaterally anterolaterally, no audible wheezes
CV: Reg, S1/S2, 1/6 syst LSB
ABD: soft, BS+, NT/ND
EXT: No cyanosis, clubbing, edema. Right upper extremity with Javier wrap and splint in place
NEURO: Gross non-focal
SKIN: Warm, pink, dry. No rash
[2025-03-06 14:30] VITALS: BP 87/59
--- NOTE | 2025-03-06 14:34 | W.PN.HOSP.TC ---
Today's Communication/Plan
-
Javier bandage to hand
Discharge planning - Case management aware
Assessment / Plan
Assessment / Plan
Echo 02/12/2024-EF 50 to 55%, stage I diastolic Dysfunction, Trace MR, Moderate , Mild TR.
CT abdomen pelvis-fluid in the rectum, small ventral hernia with no evidence of obstruction, mild coronary artery calcification.
Aphasia
Right arm on immobilizer, skin tear with mild serosanguineous discharge right wrist area, edema on the dorsal right hand and also in the fingers
Cardiovascular system S1-S2 appreciated, systolic murmur at aortic area
Abdomen soft and nontender
No pedal edema
# Possible pneumonia on the right side versus atelectasis-added antibiotics and incentive spirometry
# Status post fall with traumatic right humeral fracture/right radial fracture
CT head without any fracture or hemorrhage
Conservative/nonsurgical management recommended by orthopedics
Pain control
PT OT evaluation and fall precautions
# Oozing noted from right arm patient does have a skin tear . Orthopedics evaluated the patient and took the Javier wraps off. I think it might be better to start Javier bandages starting from the palm all the way up to avoid edema distally with
proximal bandage. I have sent a message to orthopedics regarding this.
# Hypovolemic shock
Responded to midodrine
Entresto discontinued and will be addressed again as outpatient
Lasix to be restarted on Sunday
Continue Coreg
# Acute gastroenteritis from norovirus-resolved
# Constipation-resolved. Patient had several bowel movements yesterday
# Normocytic anemia-Eliquis restarted. No evident source of bleeding. . CT abdomen and pelvis and physical exam of bilateral upper thighs with no evidence of bleeding.
Probably from fracture.
Hemoglobin stable
# Abnormal urinalysis-contaminated specimen with a lot of squamous/urothelial cells-note that the patient also had diarrhea
# Pulmonary nodule 1.2 cm opacity in the right upper lobe-outpatient workup if family desires to pursue
# Chronic HFrEF /coronary disease/ICD- Holding Lasix. Interrogation of defibrillator on 02/27/2025-no arrhythmias. Coreg and Entresto discontinued. We can probably restart Lasix 20 mg Sunday I agree with that.
# Paroxysmal atrial fibrillation with RVR-Coreg restarted, Eliquis restarted
# Moderate Aortic Stenosis
# COPD-without exacerbation-continue Qvar or equivalent and prednisone
# Hypothyroidism-continue levothyroxine
# Frontotemporal Dementia with chronic aphasia
# Moderate to severe degenerative disc disease C Spine
# History of DVT- Eliquis
# DVT prophylaxis- Eliquis restarted 03/03/25
# DNR status
D/W RN
D/W Case management
Discussed with cardiology at bedside
Sent message to orthopedics
Detailed discussion with the patient's daughter at bedside and another daughter on the phone and updated
Discussed with family that once the edema is better and she has a rehab bed she will be discharged.
Time spent more than 50 minutes
Anticipated Discharge: Within 24 hours
Subjective/Interval History
-
Date of Service: March 06, 2025
Objective Data
-
Labs:
Laboratory Results
03/06/25
06:59
WBC 7.1
Hgb 8.1 L
Hct 24.6 L
Plt Count 382
Sodium 137
Potassium 4.5
Chloride 103
Carbon Dioxide 31 H
BUN 15
Creatinine 0.7
Glucose 85
Calcium 8.9
Vital Signs:
Vital Signs
Temp Pulse Resp BP Pulse Ox
98.4 F 72 18 117/59 97
03/06/25 07:00 03/06/25 07:39 03/06/25 07:39 03/06/25 07:00 03/06/25 07:39
I&O
0503/06/25 03/07/25
06:59 06:59 06:59
Intake Total 420 / 420 1080 / 1080
Output Total 150 / 150
Balance 270 / 270 1080 / 1080
[2025-03-06 14:55] VITALS: BP 107/49
[2025-03-06 17:41] VITALS: BP 128/53
[2025-03-06] MEDS: LEXAPRO 20 MG PO (23:06)
[2025-03-06 23:24] VITALS: BP 138/73
[2025-03-07] MEDS: TYLENOL 1000 MG PO ×3 (02:35→17:03)
[2025-03-07] MEDS: AUGMENTIN 875 MG/125 MG 1 TABLET PO ×2 (05:35→17:03)
[2025-03-07 07:54] VITALS: BP 112/55
[2025-03-07] MEDS: FLOVENT 110 MCG INHALER 2 PUFF INH ×2 (07:57→19:43)
[2025-03-07] MEDS: ZYRTEC 10 MG PO (08:25)
[2025-03-07] MEDS: SYNTHROID 50 MCG PO (08:25)
[2025-03-07] MEDS: ProAmatine 5 MG PO ×3 (08:25→17:03)
[2025-03-07] MEDS: PROTONIX 40 MG PO (08:26)
[2025-03-07] MEDS: ELIQUIS 5 MG PO ×2 (08:26→20:31)
[2025-03-07] MEDS: DELTASONE 10 MG PO (08:26)
[2025-03-07] MEDS: COREG 3.125 MG PO ×2 (08:26→20:31)
--- NOTE | 2025-03-07 08:38 | W.PN.UPDATE ---
Update Note
Progress Note Update
Patient seen this morning on rounds. Dressing around her wrist are clean, dry and intact. There is edema and ecchymosis throughout her right hand which I would expect. She is able to wiggle her fingers. There is tenderness about the wrist. She is
planned for repeat x-rays today. Will follow for these. Continue with dressing changes as instructed. Ortho will continue to follow for now.
[2025-03-07] MEDS: ROXICODONE 5 MG PO (10:32)
[2025-03-07] MEDS: DILAUDID 0.5 MG IV ×3 (12:47→21:36)
--- NOTE | 2025-03-07 13:17 | W.PN.HOSP.TC ---
Today's Communication/Plan
-
Get Auth for Rehab
Assessment / Plan
Assessment / Plan
Echo 02/12/2024-EF 50 to 55%, stage I diastolic Dysfunction, Trace MR, Moderate , Mild TR.
CT abdomen pelvis-fluid in the rectum, small ventral hernia with no evidence of obstruction, mild coronary artery calcification.
Aphasia
Right arm on immobilizer, skin tear with with no drainage, Dorsal hand edema much better
Cardiovascular system S1-S2 appreciated, systolic murmur at aortic area
Abdomen soft and nontender
No pedal edema
# Possible pneumonia on the right side versus atelectasis-added antibiotics and incentive spirometry
# Status post fall with traumatic right humeral fracture/right radial fracture
CT head without any fracture or hemorrhage
Conservative/nonsurgical management recommended by orthopedics
Pain control
X-rays noted. Even though an x-ray of the shoulder was ordered per radiology with her spiral fracture she cannot get any further views for the shoulder. Therefore canceled
# Oozing noted from right arm patient does have a skin tear .
# Hypovolemic shock
Responded to midodrine
Entresto discontinued and will be addressed again as outpatient
Lasix to be restarted on Sunday
Continue Coreg
# Acute gastroenteritis from norovirus-resolved
# Constipation-resolved. Patient had several bowel movements .
# Normocytic anemia-Eliquis restarted. No evident source of bleeding. . CT abdomen and pelvis and physical exam of bilateral upper thighs with no evidence of bleeding.
Probably from fracture.
Hemoglobin stable
# Abnormal urinalysis-contaminated specimen with a lot of squamous/urothelial cells-note that the patient also had diarrhea
# Pulmonary nodule 1.2 cm opacity in the right upper lobe-outpatient workup if family desires to pursue
# Chronic HFrEF /coronary disease/ICD- Holding Lasix. Interrogation of defibrillator on 02/27/2025-no arrhythmias. Coreg and Entresto discontinued. We can probably restart Lasix 20 mg Sunday I agree with that.
# Paroxysmal atrial fibrillation with RVR- Coreg restarted, Eliquis restarted.
# Moderate Aortic Stenosis
# COPD-without exacerbation-continue Qvar or equivalent and prednisone
# Hypothyroidism-continue levothyroxine
# Frontotemporal Dementia with chronic aphasia
# Moderate to severe degenerative disc disease C Spine
# History of DVT- Eliquis
# DVT prophylaxis- Eliquis restarted 03/03/25
# DNR status
D/W RN
D/W Case management
Detailed discussion with the patient's daughter at bedside and another daughter on the phone and updated
Anticipated Discharge: Within 24 hours
Subjective/Interval History
-
Date of Service: March 07, 2025
Objective Data
-
Labs:
Laboratory Results
03/07/25
12:32
Hgb Pending
Hct Pending
Sodium Pending
Potassium Pending
Chloride Pending
Carbon Dioxide Pending
BUN Pending
Creatinine Pending
Glucose Pending
Calcium Pending
Vital Signs:
Vital Signs
Temp Pulse Resp BP Pulse Ox
98.1 F 78 16 112/55 97
03/07/25 07:54 03/07/25 07:59 03/07/25 07:59 03/07/25 07:54 03/07/25 08:25
I&O
03/06/25 03/07/25 03/08/25
06:59 06:59 06:59
Intake Total 1080 / 1080
Balance 1080 / 1080
[2025-03-07 14:35] LABS: Hematocrit 25.1 % (37.0-47.0); Hemoglobin 8.3 g/dL (12.0-16.0)
[2025-03-07 14:50] LABS: Blood Urea Nitrogen 14 mg/dl (7-17); Calcium 8.3 mg/dl (8.4-10.2); Carbon Dioxide 31 mmol/L (22-30); Chloride 102 mmol/L (98-107); Estimated Creatinine Clearance 61 ml/min; Glucose 118 mg/dl (70-99); Potassium 4.9 mmol/L (3.5-5.1); Sodium 137 mmol/L (135-145); eGFR > 60.00
[2025-03-07 15:00] VITALS: BP 104/53
[2025-03-07 15:27] VITALS: BP 93/39; PULSE 72; O2SAT 95
[2025-03-07] MEDS: SENOKOT 8.6 MG PO (20:31)
[2025-03-07] MEDS: LEXAPRO 20 MG PO (21:38)
[2025-03-07 23:55] VITALS: BP 101/59
[2025-03-08] MEDS: AUGMENTIN 875 MG/125 MG 1 TABLET PO ×2 (05:39→17:53)
[2025-03-08] MEDS: TYLENOL PO (05:39)
[2025-03-08] MEDS: SYNTHROID 50 MCG PO (05:39)
[2025-03-08] MEDS: DILAUDID 0.5 MG IV ×5 (05:40→22:27)
[2025-03-08 07:00] VITALS: BP 109/54
[2025-03-08] MEDS: FLOVENT 110 MCG INHALER 2 PUFF INH ×2 (07:43→19:59)
[2025-03-08] MEDS: ProAmatine 5 MG PO ×3 (08:35→17:53)
[2025-03-08] MEDS: COREG 3.125 MG PO ×2 (08:35→19:52)
[2025-03-08] MEDS: TYLENOL 1000 MG PO ×2 (08:35→17:53)
[2025-03-08] MEDS: SENOKOT PO (08:37)
[2025-03-08] MEDS: PROTONIX 40 MG PO (08:38)
[2025-03-08] MEDS: ELIQUIS 5 MG PO ×2 (08:38→19:52)
[2025-03-08] MEDS: ZYRTEC 10 MG PO (08:38)
[2025-03-08] MEDS: DELTASONE 10 MG PO (08:38)
--- NOTE | 2025-03-08 09:39 | W.PN.UPDATE ---
Update Note
Progress Note Update
Patient seen this morning on rounds. She is resting comfortably in her chair this morning, and her children are present at the bedside. They report she has been complaining of pain, and is taking Dilaudid for symptom management. She denies any
significant pain at present.
Dressing around her wrist are clean, dry and intact. Splint in place to upper arm. There is edema and ecchymosis throughout her right hand, increased from yesterday. She is able to wiggle her fingers and make a fist. There is tenderness about the
wrist and proximal humerus.
X-rays performed yesterday reveal stable spiral humerus fracture and distal radius fracture. Appropriate to continue with non-operative intervention. Her dressings are clean and dry on exam today. Dressing changes prn. Could consider
compression/edema glove if these are available on the floor. This would likely help to resolve some of her swelling. D/c once deemed medically stable. Plan for outpatient follow-up.
--- NOTE | 2025-03-08 10:02 | CM ---
DIANNA spoke with daughter, Ana, discussed stable for discharge, will initiate auth to [facility]. [facility] spoke with [facility] in admissions, confirmed bed availability. [facility] initiated through [facility]- faxed to [phone]. Auth ID:
[id number].
Plan; [facility] once auth approved, ambulance forms on chart
[facility]
Report: [phone]
[2025-03-08 15:00] VITALS: BP 108/48
--- NOTE | 2025-03-08 16:00 | W.PN.HOSP.TC ---
Today's Communication/Plan
-
X-ray of the lumbar spine
Awaiting authorization for discharge
Assessment / Plan
Assessment / Plan
Echo 02/12/2024-EF 50 to 55%, stage I diastolic Dysfunction, Trace MR, Moderate , Mild TR.
CT abdomen pelvis-fluid in the rectum, small ventral hernia with no evidence of obstruction, mild coronary artery calcification.
Aphasia
Right arm on immobilizer, skin tear with with no drainage, Dorsal hand edema noted
Cardiovascular system S1-S2 appreciated, systolic murmur at aortic area
Abdomen soft and nontender
No pedal edema
# Possible pneumonia on the right side versus atelectasis-added antibiotics and incentive spirometry
# Status post fall with traumatic right humeral fracture/right radial fracture
CT head without any fracture or hemorrhage
Conservative/nonsurgical management recommended by orthopedics
Pain control
X-rays noted. Even though an x-ray of the shoulder was ordered per radiology with her spiral fracture she cannot get any further views for the shoulder. Therefore canceled
Will order the compression close for the right hand
Orthopedics following
# Oozing noted from right arm patient does have a skin tear .
# Hypovolemic shock
Responded to midodrine
Entresto discontinued and will be addressed again as outpatient
Lasix to be restarted on Sunday.
Continue Coreg
# Acute gastroenteritis from norovirus-resolved
# Constipation-resolved. Patient had several bowel movements .
# Normocytic anemia-Eliquis restarted. No evident source of bleeding. . CT abdomen and pelvis and physical exam of bilateral upper thighs with no evidence of bleeding.
Probably from fracture.
Hemoglobin stable
# Abnormal urinalysis-contaminated specimen with a lot of squamous/urothelial cells-note that the patient also had diarrhea
# Pulmonary nodule 1.2 cm opacity in the right upper lobe-outpatient workup if family desires to pursue
# Chronic HFrEF /coronary disease/ICD- Holding Lasix. Interrogation of defibrillator on 02/27/2025-no arrhythmias. Coreg and Entresto discontinued. We can restart Lasix 20 mg Sunday .
# Paroxysmal atrial fibrillation with RVR- Rates better.Coreg restarted, Eliquis restarted.
# Moderate Aortic Stenosis
# COPD-without exacerbation-continue Qvar or equivalent and prednisone
# Hypothyroidism-continue levothyroxine
# Frontotemporal Dementia with chronic aphasia
# Moderate to severe degenerative disc disease C Spine
# History of DVT- Eliquis
# DVT prophylaxis- Eliquis restarted 03/03/25
# DNR status
D/W RN
D/W Case management
Detailed discussion with the patient's daughter on the phone and updated. She had concerns that patient has difficulty moving her right leg. Patient did have a hematoma in the right leg was treated in January denies any pain.. Patient cannot have
an MRI because pacemaker is not MRI condition. She already had a CAT scan. 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 I will go ahead and get x-rays of her lumbar spine. Patient is also not moving much being
in bed which could be causing deconditioning.
Anticipated Discharge: Within 24 hours
Subjective/Interval History
-
Date of Service: March 08, 2025
Objective Data
-
Vital Signs:
Vital Signs
Temp Pulse Resp BP Pulse Ox
98.5 F 74 22 108/48 99
03/08/25 15:00 03/08/25 15:00 03/08/25 15:00 03/08/25 15:00 03/08/25 15:00
I&O
03/07/25 03/08/25 03/09/25
06:59 06:59 06:59
Intake Total 960 / 960
Balance 960 / 960
[2025-03-08] MEDS: ROXICODONE 5 MG PO (19:52)
[2025-03-08] MEDS: SENOKOT 8.6 MG PO (19:52)
[2025-03-08] MEDS: LEXAPRO 20 MG PO (22:08)
[2025-03-08 23:14] VITALS: BP 117/44
[2025-03-09] MEDS: TYLENOL PO (01:49)
[2025-03-09] MEDS: AUGMENTIN 875 MG/125 MG 1 TABLET PO ×2 (05:45→17:19)
[2025-03-09] MEDS: SYNTHROID 50 MCG PO (05:45)
[2025-03-09 06:00] VITALS: BMI 31.4
[2025-03-09] MEDS: FLOVENT 110 MCG INHALER 2 PUFF INH ×2 (07:34→19:47)
--- NOTE | 2025-03-09 07:41 | PTCARENOTE ---
Patient bladder scanned for 550ml. Bladder scan order placed. Patient straight cathed for 500 ml
[2025-03-09] MEDS: ProAmatine 5 MG PO ×3 (07:57→17:20)
[2025-03-09] MEDS: COREG 3.125 MG PO ×2 (07:57→19:39)
[2025-03-09] MEDS: ELIQUIS 5 MG PO ×2 (07:57→19:39)
[2025-03-09] MEDS: DELTASONE 10 MG PO (07:57)
[2025-03-09] MEDS: ZYRTEC 10 MG PO (07:57)
[2025-03-09] MEDS: PROTONIX 40 MG PO (07:57)
[2025-03-09] MEDS: DILAUDID 0.5 MG IV (07:57)
[2025-03-09] MEDS: LASIX 20 MG PO (07:57)
--- NOTE | 2025-03-09 07:57 | W.PN.HOSP.TC ---
Addendum entered and electronically signed by David Torres MD 03/09/25 16:13:
I saw and evaluated the patient. I reviewed the resident�s note and agree with findings and plan as documented in the resident�s note.
1. Traumatic right humeral/radial fracture -secondary to mechanical fall. CT head normal. X-ray showing right humeral midshaft fracture and distal radial fracture. Orthopedic surgery evaluated and conservative management with cast/sling
2. Hypovolemic shock -secondary to medication. Improved with midodrine.
3. Acute norovirus gastroenteritis -nausea vomiting diarrhea improved at this point.
Ongoing discharge planning for SNF rehab.
Original Note:
Today's Communication/Plan
-
.
Assessment / Plan
Assessment / Plan
84yo F h CHF, defibrillator, pacer, [place], expressive aphasia who presented to [facility] ED for a closed R humeral fx. Witnessed fall, where her RUE was twisted behind her back at an odd angle.
SOB
- concern for possible aspiration
- speech therapy
- CXR
S/p fall w right humeral fx / R radial fx
- XR humerus: Oblique fracture is identified through the proximal third of the right humerus. There is displacement and partial overlap of fracture fragments.
- XR wrist: ACUTE INTRA-ARTICULAR FRACTURE of the DISTAL RIGHT RADIUS with minimal posterior displacement of the distal fracture fragment.
- CT head: no acute intracranial abnormalities
- fall precautions
- appreciate ortho input - conservative management
- pain control
- PT/OT
- repeat XR: fx healing well, stable
Goals of care discussion
- pain control limited secondary to HoTN
- daughters planning for 'comfort care' after SNF
Hypovolemic shock
- pressures reportedly soft at home
- worsened w volume depletion secondary to N/V/D
- IVF
- hold home entresto
- midodrine
- resolved
Acute gastroenteritis secondary to norovirus
- presented w N/V/D
- febrile
- CT abdo/pelvis: diarrhea, no incarcerated hernia/obstruction
- C diff neg
- Norovirus positive, abx dc'ed
Pulmonary nodule
- CXR: 1.2 cm nodular opacity projected over the right upper lung zone, not seen on prior chest x-rays. Further evaluation is suggested with noncontrast CT of the chest.
- recommend outpt CT if not pursuing hospice
Normocytic anemia w/o signs of bleeding
- eliquis
- monitor cbc
- Hb improving
CAD
- holding home coreg
- denies CP
Chronic HFpEF
- LVEF 50-55%, indicating HFpEF
- hypervolemic
- holding home lasix, entresto, carvedilol
Paroxysmal Afib
Afib w RVR
- hold carvedilole secondary to HoTN
- appreciate cardiology input
- eliquis on hold secondary to anemia
COPD w/o acute exacerbation
- stable
- cont home Qvar, prednisone
Hypothyroidism
- stable
- cont home levothyroxine
Frontotemporal dementia
Chronic aphasia
- stable
- prn morphine for laryngeal spasms/dyspnea
DVT prophylaxis: SCDs, Eliquis
Diet: Regular diet
Code status: DNR
Anticipated Discharge: 24 - 48 hours
Subjective/Interval History
-
Date of Service: March 09, 2025
No acute overnight events
Objective Data
-
Vital Signs:
Vital Signs
Temp Pulse Resp BP Pulse Ox
98.5 F 69 17 117/44 97
03/08/25 23:14 03/09/25 07:36 03/09/25 07:36 03/08/25 23:14 03/09/25 07:36
I&O
05/11/25 05/12/25 05/13/25
06:59 06:59 06:59
Intake Total 960 / 960 720 / 720
Output Total 500 / 500
Balance 960 / 960 720 / 720 -500 / -500
Review of Systems
-
Unable to obtain full review of systems at this time due to: Patient Non-verbal
Respiratory: Reports No Symptoms
Cardiac: Reports No Symptoms
Physical Exam
-
General: Well Developed, Well Nourished and No Apparent Distress
HEENT: Normocephalic and Atraumatic
Respiratory: Clear to Auscultation and Non Labored Respirations
Cardiac: Regular Rhythm and S1/S2
GI: Soft, Nontender, Nondistended and Normal Bowel Sounds
Musculoskeletal: No Clubbing, No Cyanosis and No Edema
Skin: Warm and Dry
Neuro: Awake
[2025-03-09] MEDS: TYLENOL 1000 MG PO ×2 (07:58→17:19)
[2025-03-09] MEDS: SENOKOT PO (07:58)
[2025-03-09 08:00] VITALS: BMI 31.4
[2025-03-09 08:11] VITALS: BP 128/62
--- NOTE | 2025-03-09 10:16 | CM ---
Addendum entered by Ezequiel Meza 03/09/25 13:49:
Updated PT/OT notes faxed to [facility]
Addendum entered by Ezequiel Meza 03/09/25 11:39:
Received call from [facility], requesting for updated PT/OT notes w/ transfers and ambulation status as it was not reported on 03/07 therapy notes that were submitted. TT therapy track repair supervisor w/ request for updated notes.
CM will send updated notes to [facility] when made available
Original Note:
Chart reviewed. Auth initiated yesterday for SNF
CM placed call to [facility] for update. At this time, clinicals received, auth currently under review
DIANNA will cont to follow for auth approval
[2025-03-09] MEDS: ROXICODONE 10 MG PO ×2 (12:56→19:38)
[2025-03-09 13:02] VITALS: BP 120/51
[2025-03-09 13:08] VITALS: BP 120/51
[2025-03-09 15:47] VITALS: BP 119/48
[2025-03-09 19:38] VITALS: BP 103/42
[2025-03-09] MEDS: SENOKOT 8.6 MG PO (19:39)
[2025-03-09] MEDS: LEXAPRO 20 MG PO (21:12)
[2025-03-09] MEDS: ROXICODONE 5 MG PO (21:16)
[2025-03-09 23:30] VITALS: BP 105/47
[2025-03-10] MEDS: TYLENOL PO (01:34)
[2025-03-10] MEDS: ROXICODONE 10 MG PO ×3 (03:48→14:34)
[2025-03-10] MEDS: AUGMENTIN 875 MG/125 MG 1 TABLET PO (05:37)
[2025-03-10] MEDS: ROXICODONE 5 MG PO ×2 (05:41→12:51)
[2025-03-10 06:00] VITALS: BMI 32.7
[2025-03-10 07:07] VITALS: BP 99/44
[2025-03-10] MEDS: FLOVENT 110 MCG INHALER 2 PUFF INH (07:40)
[2025-03-10] MEDS: DELTASONE 10 MG PO (07:52)
[2025-03-10] MEDS: SYNTHROID 50 MCG PO (07:52)
[2025-03-10] MEDS: COREG 3.125 MG PO (07:52)
[2025-03-10] MEDS: ProAmatine 5 MG PO ×2 (07:52→12:32)
[2025-03-10] MEDS: SENOKOT 8.6 MG PO (07:52)
[2025-03-10] MEDS: PROTONIX 40 MG PO (07:52)
[2025-03-10] MEDS: TYLENOL 1000 MG PO (07:52)
[2025-03-10] MEDS: ZYRTEC 10 MG PO (07:52)
[2025-03-10] MEDS: ELIQUIS 5 MG PO (07:52)
--- NOTE | 2025-03-10 08:09 | W.PN.HOSP.TC ---
Today's Communication/Plan
-
dc today
Assessment / Plan
Assessment / Plan
84yo F [facility] CHF, defibrillator, pacer, [place], expressive aphasia who presented to [facility] for a closed R humeral fx. Witnessed fall, where her RUE was twisted behind her back at an odd angle.
SOB
- concern for possible aspiration
- speech therapy
- CXR
S/p fall w right humeral fx / R radial fx
- XR humerus: Oblique fracture is identified through the proximal third of the right humerus. There is displacement and partial overlap of fracture fragments.
- XR wrist: ACUTE INTRA-ARTICULAR FRACTURE of the DISTAL RIGHT RADIUS with minimal posterior displacement of the distal fracture fragment.
- CT head: no acute intracranial abnormalities
- fall precautions
- appreciate ortho input - conservative management
- pain control
- PT/OT
- repeat XR: fx healing well, stable
Goals of care discussion
- pain control limited secondary to HoTN
- daughters planning for 'comfort care' after SNF
Hypovolemic shock
- pressures reportedly soft at home
- worsened w volume depletion secondary to N/V/D
- IVF
- hold home entresto
- midodrine
- resolved
Acute gastroenteritis secondary to norovirus
- presented w N/V/D
- febrile
- CT abdo/pelvis: diarrhea, no incarcerated hernia/obstruction
- C diff neg
- Norovirus positive, abx dc'ed
Pulmonary nodule
- CXR: 1.2 cm nodular opacity projected over the right upper lung zone, not seen on prior chest x-rays. Further evaluation is suggested with noncontrast CT of the chest.
- recommend outpt CT if not pursuing hospice
Normocytic anemia w/o signs of bleeding
- eliquis
- monitor cbc
- Hb improving
CAD
- holding home coreg
- denies CP
Chronic HFpEF
- LVEF 50-55%, indicating HFpEF
- hypervolemic
- holding home lasix, entresto, carvedilol
Paroxysmal Afib
Afib w RVR
- hold carvedilole secondary to HoTN
- appreciate cardiology input
- eliquis on hold secondary to anemia
COPD w/o acute exacerbation
- stable
- cont home Qvar, prednisone
Hypothyroidism
- stable
- cont home levothyroxine
Frontotemporal dementia
Chronic aphasia
- stable
- prn morphine for laryngeal spasms/dyspnea
DVT prophylaxis: SCDs, Eliquis
Diet: Regular diet
Code status: DNR
Anticipated Discharge: Today
Subjective/Interval History
-
Date of Service: March 10, 2025
No acute overnight events
Objective Data
-
Vital Signs:
Vital Signs
Temp Pulse Resp BP Pulse Ox
98.3 F 65 16 99/44 94
03/10/25 07:07 03/10/25 07:44 03/10/25 07:44 03/10/25 07:07 03/10/25 07:44
I&O
03/09/25 03/10/25 03/11/25
06:59 06:59 06:59
Intake Total 720 / 720 570 / 570
Output Total 1000 / 1000
Balance 720 / 220 -430 / -430
Review of Systems
-
Unable to obtain full review of systems at this time due to: Patient Non-verbal
History Source: Patient
Physical Exam
-
General: Well Developed and Well Nourished
HEENT: Normocephalic, Atraumatic and Hearing Impaired
Respiratory: Clear to Auscultation
Cardiac: Regular Rhythm and S1/S2
GI: Soft, Nontender, Nondistended and Normal Bowel Sounds
Musculoskeletal: No Clubbing, No Cyanosis and No Edema
Skin: Warm and Dry
Neuro: Awake and Alert
--- NOTE | 2025-03-10 10:48 | CM ---
Addendum entered by Chayito Rico 03/10/25 12:30:
Patient scheduled for 2:00 p.m. transport, daughter Ana updated.
Original Note:
CM reviewed chart, spoke with [facility], auth approved 03/09-03/11, auth ID [id number], health care recruiter Jared, fax updates to [phone]. Patient and daughter seen bedside, discussed auth approved and plan for discharge. IMM verbally
reviewed with patient and daughter, agreeable to discharge, placed in chart, patient provided with copy. Patient will require ambulance transport, forms on chart. CM will continue to follow for all discharge planning needs.
Plan; [facility], ambulance transport
[place]
Report: [phone]
--- NOTE | 2025-03-10 11:05 | W.DCSUMMARY ---
Documented by User: Alexa Renteria DO, Resident 03/10/25 14:52
Discharge Summary
Discharge Data
Date of Admission: 02/27/25
Date of Discharge: 03/10/25
-
Pending Results: No
Hospital Course
Discharging Physician : Dr. Alexa Renteria, Dr. David Torres
Disposition : SNF
Primary care physician : Angela Hussein
Principal Discharge diagnosis : Right humeral/radius fracture, Norovirus gastro-enteritis
Chronic Discharge diagnosis : Frontotemporal dementia, CHF, ELEM, expressive aphasia, CAD, paroxysmal afib, COPD, hypothyroidism
Hospital Course : 84yo F [facility] CHF, defibrillator, pacer, ELEM, expressive aphasia who presented to [facility] ED for a witnessed fall. Pt was attempting to transfer from a wheelchair to the bed, but slid down. During this, her RUE was twisted behind her
back at an odd angle. CT head neg for intracranial abnormalities. XR positive for oblique R humerus fx and distal R radial fx. Shortly after admission, pt developed norovirus gastroenteritis. This eventually resolved. On 03/05, daughters were
concerned pt was aspirating while eating breakfast. Cleared by speech therapy, CXR consistent with pneumonia. Repeat humerus/wrist imaging at 1 week showed fx still aligned and starting to heal. 03/08 pt developed LBP. DJD on lumbar XR. Pt
hemodynamically stable, afebrile.
Important imaging findings :
Head CT 02/27:
1. No intracranial hemorrhage, and no displaced skull fracture appreciated.
2. Mild atrophy and mild chronic small vessel change, unchanged compared to prior study.
3. Paranasal sinus change as above.
Cervical spine ct 02/27:
1. No osseous injury appreciated.
2. Moderate to severe degenerative disc disease.
CXR 02/27:
1. 1.2 cm nodular opacity projected over the right upper lung zone, not seen on prior chest x-rays. Further evaluation is suggested with noncontrast CT of the chest.
2. Otherwise clear lungs
Humerus XR 02/27: Oblique fracture is identified through the proximal third of the right humerus. There is displacement and partial overlap of fracture fragments.
Wrist XR 02/27:
1. ACUTE INTRA-ARTICULAR FRACTURE of the DISTAL RIGHT RADIUS with minimal posterior displacement of the distal fracture fragment.
2. Severe sclerosis throughout the lunate. Diagnostic possibilities are (1) LUNATE OSTEONECROSIS (Kienbock disease) or (2) subchondral sclerosis from osteoarthritis.
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
4. Severe subcutaneous edema and swelling in the lateral right wrist.
Abdo/pelvis CT 02/27:
1. Fluid within the rectum, consistent with diarrhea. No inflammatory change or significant bowel wall thickening. No evidence of intestinal obstruction.
2. Small ventral hernia near the midline in the infraumbilical region, containing several loops of small bowel. No evidence of incarceration or intestinal obstruction.
3. Mild coronary arterial calcification. Please correlate with symptoms of and risk factors for coronary artery disease, with further workup as clinically appropriate.
CXR 03/05: Possible developing mild right upper lobe pneumonia. Findings due to limited inspiration cannot be excluded
Humerus XR 03/07: Angulated fracture of the proximal shaft of the right humerus, without significant interval change. Subtle deformity of the surgical neck and the right proximal humerus, suspicious for fracture in this region as well.
Wrist XR 03/07: Fracture of the distal right radius with minimal posterior displacement of the distal fracture fragment.
Lumbar spine XR 03/08: Moderate to severe multilevel degenerative changes of the lumbar spine without evidence for acute fracture.
Procedure findings : n/a
Discharge Plan
-
Patient Disposition: Detention/SNF
Discharge Diagnosis/Procedures: Right humeral/radius fracture, Norovirus gastro-enteritis
Condition: Fair
Diet: Regular
Activity: As tolerated
Driving Restrictions: No driving
Bathing Restrictions: OK to Shower
Other Services: PT
Activity Restrictions/Additional Instructions:
Pulmonary nodule 1.2 cm opacity in the right upper lobe-outpatient workup.
Follow-up with GI for workup of anemia
Referrals:
Keenan,Angela Keyla, [employer] [Family Provider] - in one week
Allan Ruby MD [Active] - (Follow-up in 1 week from date of injury for repeat x-rays of the humerus and wrist)
Annetta Crockett PA-C [Specified Professional Personl] - 04/09/25 2:00 pm (You have a cardiology follow up appointment at the [facility] office. Please call with questions. )
Prescriptions:
New
midodrine 5 mg Tablet
5 mg PO TID@0800,1300,1800 Qty: 90 0RF
Rx Instructions:
HOLD DOSE FOR SBP < 100
acetaminophen [Tylenol Extra Strength] 500 mg Tablet
1,000 mg PO Q8H Qty: 30 0RF
morphine concentrate 100 mg/5 mL (20 mg/mL) solution
7.5 mg PO Q4HPRN PRN (Reason: sev pain) Qty: 15 0RF
Rx Instructions:
Use 5mg/0.25ml q4hprn for MODERATE pain
morphine concentrate 100 mg/5 mL (20 mg/mL) solution
5 mg PO Q8H Qty: 1 0RF
Continued
furosemide 40 MG tablet
20 mg PO MOWEFR
cetirizine 10 MG tablet
10 mg PO DAILY
potassium chloride [Klor-Con M20] 20 MEQ tablet,ER particles/crystals
20 meq PO DAILY
levothyroxine 50 MCG tablet
50 mcg PO DAILY AT 0700
prednisone 10 MG tablet
10 mg PO DAILY Qty: 50 0RF
omeprazole 40 mg capsule,delayed release(DR/EC)
40 mg PO DAILY
apixaban 5 mg Tablet
5 mg PO BID
albuterol sulfate 2.5 mg /3 mL (0.083 %) Solution For Nebulization
2.5 mg INHALATION R Q6HPRN PRN (Reason: sob)
carvedilol 3.125 mg Tablet
3.125 mg PO BID
escitalopram oxalate 20 mg Tablet
20 mg PO HS
Qvar RediHaler 80 mcg/actuation Hfa Aerosol Breath Activated
2 inh INHALATION R BID
Discontinued
colesevelam [WelChol] 625 MG tablet
1,250 mg PO BID
acetaminophen [Tylenol Extra Strength] 500 MG tablet
1,000 mg PO Q6HPRN PRN (Reason: mild pain)
cholecalciferol (vitamin D3) [Vitamin D3] 25 mcg (1,000 unit) capsule
25 mcg PO HS
Entresto 24-26 mg tablet
1 tab PO BID
morphine concentrate 100 mg/5 mL (20 mg/mL) Solution
5 mg PO Q4HPRN PRN (Reason: severe pain/sob)
Repatha SureClick 140 mg/mL Pen Injector
140 mg SC Q2W
Discharge Orders:
Discharge Patient (As Directed); Ordered 03/10/25
Ordered By: David Torres
Discharge Date and Time
Discharge Date/Time: 03/10/25 14:43
Print Language: EQUATORIAL GUINEAN

Documented by User: David Torres MD 03/11/25 08:28
Discharge Summary
Discharge Data
Date of Admission: 02/27/25
Date of Discharge: 03/11/25
Discharge Plan
-
Patient Disposition: Detention/SNF
Discharge Diagnosis/Procedures: Right humeral/radius fracture, Norovirus gastro-enteritis
Condition: Fair
Diet: Regular
Activity: As tolerated
Driving Restrictions: No driving
Bathing Restrictions: OK to Shower
Other Services: PT
Activity Restrictions/Additional Instructions:
Pulmonary nodule 1.2 cm opacity in the right upper lobe-outpatient workup.
Follow-up with GI for workup of anemia
Referrals:
Angela Hussein CRNP [Family Provider] - in one week
Allan Ruby MD [Active] - (Follow-up in 1 week from date of injury for repeat x-rays of the humerus and wrist)
Annetta Crockett PA-C [Specified Professional Personl] - 04/09/25 2:00 pm (You have a cardiology follow up appointment at the [place] office. Please call with questions. )
Prescriptions:
New
midodrine 5 mg Tablet
5 mg PO TID@0800,1300,1800 Qty: 90 0RF
Rx Instructions:
HOLD DOSE FOR SBP < 100
acetaminophen [Tylenol Extra Strength] 500 mg Tablet
1,000 mg PO Q8H Qty: 30 0RF
morphine concentrate 100 mg/5 mL (20 mg/mL) solution
7.5 mg PO Q4HPRN PRN (Reason: sev pain) Qty: 15 0RF
Rx Instructions:
Use 5mg/0.25ml q4hprn for MODERATE pain
morphine concentrate 100 mg/5 mL (20 mg/mL) solution
5 mg PO Q8H Qty: 1 0RF
Continued
furosemide 40 MG tablet
20 mg PO MOWEFR
cetirizine 10 MG tablet
10 mg PO DAILY
potassium chloride [Klor-Con M20] 20 MEQ tablet,ER particles/crystals
20 meq PO DAILY
levothyroxine 50 MCG tablet
50 mcg PO DAILY AT 0700
prednisone 10 MG tablet
10 mg PO DAILY Qty: 50 0RF
omeprazole 40 mg capsule,delayed release(DR/EC)
40 mg PO DAILY
apixaban 5 mg Tablet
5 mg PO BID
albuterol sulfate 2.5 mg /3 mL (0.083 %) Solution For Nebulization
2.5 mg INHALATION R Q6HPRN PRN (Reason: sob)
carvedilol 3.125 mg Tablet
3.125 mg PO BID
escitalopram oxalate 20 mg Tablet
20 mg PO HS
Qvar RediHaler 80 mcg/actuation Hfa Aerosol Breath Activated
2 inh INHALATION R BID
Discontinued
colesevelam [WelChol] 625 MG tablet
1,250 mg PO BID
acetaminophen [Tylenol Extra Strength] 500 MG tablet
1,000 mg PO Q6HPRN PRN (Reason: mild pain)
cholecalciferol (vitamin D3) [Vitamin D3] 25 mcg (1,000 unit) capsule
25 mcg PO HS
Entresto 24-26 mg tablet
1 tab PO BID
morphine concentrate 100 mg/5 mL (20 mg/mL) Solution
5 mg PO Q4HPRN PRN (Reason: severe pain/sob)
Repatha SureClick 140 mg/mL Pen Injector
140 mg SC Q2W
Discharge Orders:
Discharge Patient (As Directed); Ordered 03/10/25
Ordered By: David Torres
Discharge Date and Time
Discharge Date/Time: 03/10/25 14:43
Print Language: EQUATORIAL GUINEAN
[2025-03-10 14:30] VITALS: BP 98/45
== END 2025-03-10 14:43 | DRG 562 ==
LOC: 4 WEST ACU 06:03
PROVIDERS: General Practice; Hospitalist; Internal Medicine Cardiovascular Disease; Physician Assistant; ADMITTING PHYSICIAN Hospitalist; ATTENDING PHYSICIAN Hospitalist; CONSULT PHYSICIAN Orthopaedic Surgery; EMERGENCY PHYSICIAN Student in an Organized Health Care Education/Training Program; FAMILY PHYSICIAN Nurse Practitioner Adult Health; OTHER PHYSICIAN Internal Medicine Cardiovascular Disease
PROC: 4B02XTZ Measurement of Cardiac Defibrillator, External Approach (ICD-10-PCS; 2025-02-27)
DX: S42.341A Displaced spiral fracture of shaft of humerus, right arm, initial encounter for closed fracture (principal); R57.1 Hypovolemic shock; J44.0 Chronic obstructive pulmonary disease with (acute) lower respiratory infection; S52.571A Other intraarticular fracture of lower end of right radius, initial encounter for closed fracture; F02.84 Dementia in other diseases classified elsewhere, unspecified severity, with anxiety; A08.11 Acute gastroenteropathy due to Norwalk agent; I47.20 Ventricular tachycardia, unspecified; I42.9 Cardiomyopathy, unspecified; I50.22 Chronic systolic (congestive) heart failure; M87.8 Other osteonecrosis; E03.9 Hypothyroidism, unspecified; I11.0 Hypertensive heart disease with heart failure; R13.10 Dysphagia, unspecified; R15.9 Full incontinence of feces; I25.10 Atherosclerotic heart disease of native coronary artery without angina pectoris; I48.0 Paroxysmal atrial fibrillation; S80.11XA Contusion of right lower leg, initial encounter; G31.01 Pick's disease; G31.09 Other frontotemporal neurocognitive disorder; R19.7 Diarrhea, unspecified; R11.2 Nausea with vomiting, unspecified; I95.9 Hypotension, unspecified; K21.9 Gastro-esophageal reflux disease without esophagitis; M50.321 Other cervical disc degeneration at C4-C5 level; I35.0 Nonrheumatic aortic (valve) stenosis; M50.322 Other cervical disc degeneration at C5-C6 level; M50.323 Other cervical disc degeneration at C6-C7 level; M50.31 Other cervical disc degeneration, high cervical region; S60.211A Contusion of right wrist, initial encounter; D64.9 Anemia, unspecified; R91.1 Solitary pulmonary nodule; K59.00 Constipation, unspecified; K43.9 Ventral hernia without obstruction or gangrene; E78.00 Pure hypercholesterolemia, unspecified; M47.816 Spondylosis without myelopathy or radiculopathy, lumbar region; R26.2 Difficulty in walking, not elsewhere classified; W05.0XXA Fall from non-moving wheelchair, initial encounter; Y93.89 Activity, other specified; Y92.009 Unspecified place in unspecified non-institutional (private) residence as the place of occurrence of the external cause; Z79.01 Long term (current) use of anticoagulants; Z96.653 Presence of artificial knee joint, bilateral; Z66 Do not resuscitate; Z96.641 Presence of right artificial hip joint; I69.320 Aphasia following cerebral infarction; Z79.891 Long term (current) use of opiate analgesic; Z87.891 Personal history of nicotine dependence; Z90.49 Acquired absence of other specified parts of digestive tract; Z79.890 Hormone replacement therapy; Z79.51 Long term (current) use of inhaled steroids; Z79.52 Long term (current) use of systemic steroids; Z86.718 Personal history of other venous thrombosis and embolism; Z88.8 Allergy status to other drugs, medicaments and biological substances; Z88.6 Allergy status to analgesic agent; Z91.041 Radiographic dye allergy status; Z11.52 Encounter for screening for COVID-19; Z95.810 Presence of automatic (implantable) cardiac defibrillator; Z87.892 Personal history of anaphylaxis
CPT/HCPCS: 29125; 70450; 71046; 72110; 72125; 73060; 73110; 74176; 80048; 80053; 81003; 81015; 82607; 82728; 82962; 83540; 83550; 83605; 83690; 83735; 83880; 84443; 84484; 85014; 85018; 85025; 85027; 85610; 85730; 87045; 87046; 87077; 87086; 87324; 87427; 87449; 87502; 87798; 87811; 92610; 93005; 94640; 96361; 96374; 96375; 97110; 97163; 97167; 97530; 97535; 99285